=== PATIENT | female | born 1995 | race Caucasian/White ===

== ENCOUNTER → 2017-08-23 16:27 | Outpatient (CLI) | payer OTHER, MEDICAID, SELFPAY ==
[2017-08-23 16:40] LABS: RBC Urine None Seen (0-5/HPF)
[2017-08-23 17:13] LABS: Appearance Urine UA CLEAR; Bilirubin Urine UA NEGATIVE (NEGATIVE); Color Urine UA YELLOW; Glucose Urine UA NEGATIVE (Normal); Ketones Urine UA NEGATIVE (NEGATIVE); Leukocyte Esterase Urine UA TRACE (NEGATIVE); Nitrite Urine UA Negative (Negative); Occult Blood Urine UA NEGATIVE (Negative); Protein Urine UA NEGATIVE (Negative); Specific Gravity Urine UA <=1.005 (1.000-1.035); Urobilinogen Urine UA 0.2 E.U./dL (0.2)
[2017-08-23 17:46] LABS: Bacteria Urine Few (2-10); Culture Indicated Urine Specimen Cultured; WBC Urine 5-10/HPF (0-5/HPF)
== END ==
PROVIDERS: Family Provider Family Medicine; PCP Family Medicine; Visit Provider Family Medicine
DX: N39.0 Urinary tract infection, site not specified (principal)
CPT/HCPCS: 81001; 87077; 87086; 87186

== ENCOUNTER 2017-09-21 01:19 | Emergency (ER) | payer OTHER, MEDICAID, SELFPAY ==
[2017-09-21 02:36] VITALS: BP 115/61; PULSE 76; RESP 15; TEMP 36.6; O2SAT 100
[2017-09-21 03:11] LABS: RBC Urine 10-30/HPF (0-5/HPF)
[2017-09-21 03:12] LABS: Bacteria Urine Occasional (0-1); Mucus Urine 1+ (Negative); Squamous Epithelial Cell Urine 0-1 /HPF; WBC Urine 0-1/HPF (0-5/HPF)
--- NOTE | 2017-09-21 03:12 | ED.FEMALEGU ---
HPI - Female Genitourinary General Chief complaint: Vaginal Bleeding Stated complaint: Vaginal bleeding, large clots History of Present Illness HPI Narrative: HPI 22-year-old female presents for evaluation of 6+ hours of cramping and vaginal bleeding. Patient is used lesson 2 tampons. Patient reports that she has usual regular monthly menses, she had a interruption in her control and her last period was 6 weeks ago. Her cramping and bleeding is similar to prior menstrual periods, however the pain is more significant and she is concerned that she is passing tissue like material. * Pituitary: Denies headaches, changes in vision, or nipple discharge. * FUEL SYSTEM MAINTENANCE WORKER: None. M/S/F/SocHx notable for: please see HPI; remainder reviewed with patient and in chart. ROS: Negative constitutional, eye, cardiovascular, pulmonary, GI, , MSK, skin, neurologic, psychiatric, endocrine unless noted in the HPI. Exam Gen: Pleasant, nontoxic-appearing, resting comfortably. HEENT: NC, AT, PEERL, EOMI. Resp: Clear to auscultation bilaterally, normal work of breathing, no accessory muscle usage. Card: Regular rate and rhythm with no murmurs, rubs, or gallops, extremities warm and well perfused. GI: Non-tender to palpation, no rebound tenderness or guarding, non-distended : chaperoned exam with Normal female external genitalia, clitoral medina area piercing, vaginal canal visually normal without lesions, scant[ dark red blood appreciated from a visually closed cervical os. Bimanual exam without adnexal tenderness bilaterally, no CMT. MSK: No visible deformities, strength and tone without visually appreciable deficit. Skin: Normal color with no visible lesions. Neuro: AO x 3, no facial asymmetry, vision and hearing WNL. Psych: Mood and affect appropriate. MDM Previous chart, nursing note, and vitals reviewed. A: 22-year-old female presents for evaluation of 6+ hours of cramping and vaginal bleeding; notes that this is first bleeding since last menses 6 weeks ago. DDx & Evaluation: * Anemia - doubt clinically significant anemia given the short duration of bleeding, absence of tachycardia or hypotension, normal skin color. * Coagulopathy - no evidence on history or ROS for coagulopathy. * Vaginal/cervical lesion - Pelvic exam with bleeding from a closed cervical os. No visualized vaginal atrophy, cervical wart, trauma, tumor, ectropion, polyp, or foreign bodies. * Ruptured ovarian cyst - Doubt given lack of pain.Transvaginal ultrasound without evidence of hemorrhagic cyst. * Uterine (DUB, malignancy, leiomyoma, polyps, PID) - further evaluation offered, declined as the patient's bleeding is most likely secondary to recurrent menses. Doubt PID given an alternate diagnosis and absence of CMT or notable uterine or adnexal tenderness. * Endocrine - ROS low risk for hypo or hyperthyroidism Hyperprolactinemia cannot be fully excluded, however ROS is unremarkable and no further emergent evaluation is presently indicated.Furthermore, the patient is also without an overt cushingoid habitus. * Urinary tract - UA not ordered as there is clearly visualized uterine source of bleeding. * Bleeding 2/2 - Negative HCG. ED Course: Hemodynamically stable on arrival, patient remained stable throughout evaluation. Disposition: Patient discharged with instructions to follow up with their FUEL SYSTEM MAINTENANCE WORKER. Instructed to use OTC NSAIDs for pain control. Return to care precautions provided. Impression: Vaginal Bleeding (please reference below for remainder of encounter information) Related Data Home Medications Medication Instructions Recorded Confirmed cetirizine 10 mg PO #0 tab 11/28/12 07/28/17 buprenorphine-naloxone [Suboxone] 1 riley SUBLINGUAL QDAY #0 07/06/17 07/28/17 Previous Rx's Medication Instructions Recorded montelukast [Singulair] 10 mg PO QDAY #90 tab 02/25/16 valacyclovir [Valtrex] 1,000 mg PO Q DAY #90 tab 09/09/16 albuterol sulfate [ProAir 90 mcg IH Q4HP PRN #1 inh 02/21/17 RespiClick] drospirenone-ethinyl estradiol 1 tab PO QDAY #3 pac 06/09/17 [Shila (28)] pantoprazole 40 mg PO QDAY #90 ect 07/06/17 methylphenidate 10 mg tablet 10 mg PO TID #90 tab 09/14/17 propranolol ER 80 mg capsule,24 80 mg PO QDAY #30 cap 09/14/17 hr,extended release Allergies Allergy/AdvReac Type Severity Reaction Status Date / Time amoxicillin [From AUGMENTIN] Allergy Intermediate Verified 09/21/17 02:36 clavulanic acid Allergy Intermediate Verified 09/21/17 02:36 [From AUGMENTIN] Penicillins [PENICILLINS] Allergy Unknown Verified 09/21/17 02:36 [facility] Medical History Asthma (Chronic) H pylori ulcer (Chronic) Social History Smoking Status: Never smoker Exam Initial Vital Signs Initial Vital Signs: Vital Signs Temperature 97.9 F 09/21/17 02:36 Pulse Rate 76 09/21/17 02:36 Respiratory Rate 15 09/21/17 02:36 Blood Pressure 115/61 09/21/17 02:36 Pulse Oximetry 100 09/21/17 02:36 Course Orders Ordered: ED Orders 09/21/17 02:28 Urine Microscopic Stat Vital Signs - 8 hr 09/21/17 02:36 Temperature 97.9 F Pulse Rate 76 Respiratory Rate 15 Blood Pressure 115/61 Pulse Oximetry 100 Discharge Plan Departure Patient Disposition: Home, Self-Care Clinical Impression: Abnormal menses Activity Restrictions/Additional Instructions: You were in seen in the [facility] Emergency Department for evaluation of vaginal bleeding. At the present time your bleeding is tentatively thought to be due to an abnormal period. Please read and follow all of the instructions below. Please follow up with your FUEL SYSTEM MAINTENANCE WORKER or primary care physician within 36 to 48 hours for repeat evaluation as needed. Please return immediately if you have any of the following: * Worsening bleeding. * Lightheadedness, shortness of breath, dizziness, chest pain. * Worsening pain. * If you are otherwise concerned about your health. If you have any new symptoms or if you are at all concerned about your health please return immediately to the emergency department. If you do not have a primary care physician, please contact [facility], [facility] at [phone], [facility] at [phone], or [facility] at [phone] to arrange follow up care. If you have health insurance, please also contact your insurer for a list of accepting providers under your policy, you may contact these providers for further health care. Your care today was limited to identifying and treating emergent medical problems only. Many people have subtle differences in their test results that require follow up with their outpatient physician(s) to correctly determine if this represents a normal variation or concerning abnormality with respect to your specific health. The care given to you today was limited to identifying and treating emergent medical problems - you need to request a copy of all of your medical records from today's visit and follow up with your outpatient physician(s) to review both today's visit and your overall health. You make take over the counter Acetaminophen (Tylenol) and Ibuprofen (Motrin or Aleve) as directed below for relief of pain. * Take 600 mg of ibuprofen (three 200 mg tablets) with a glass of water every 6-8 hours as needed for pain or fever. Do not take if you have ulcers, GI bleeding, are , or are allergic to ibuprofen. * Take 1,000 mg of acetaminophen (two 500 mg tablets) with a glass of water every 6-8 hours as needed for pain. Do not take if you are allergic to acetaminophen. If you have liver disease, please reduce your dose to a maximum of 2,000 mg per day. * You can take these medications at the same time or on separate schedules. * Do not take for more than 10 days. * Do not take with alcohol or other acetaminophen containing medications. * This medication may cause a mildly upset stomach, if so take it with a small snack. Stop taking it if you have persistent abdominal pain, heartburn, or any stomach pain. Do not take this medication if you have known ulcers. * Please read the warnings at the end of this document regarding these medications. IBUPROFEN WARNING: This drug may infrequently cause serious (rarely fatal) bleeding from the stomach or intestines. Also, related drugs rarely have caused blood clots to form, resulting in heart attacks and strokes. This medication might also rarely cause similar problems. Talk to your doctor or pharmacist about the benefits and risks of treatment, as well as other possible medication choices. If you notice any of the following rare but very serious side effects, stop taking ibuprofen and seek immediate medical attention: black stools, persistent stomach/abdominal pain, vomit that looks like coffee grounds, chest pain, weakness on one side of the body, sudden vision changes, slurred speech. IBUPROFEN SIDE EFFECTS: Upset stomach, nausea, vomiting, heartburn, headache, diarrhea, constipation, drowsiness, and dizziness may occur. If any of these effects persist or worsen, notify your doctor or pharmacist promptly. If your doctor has directed you to use this medication, remember that he or she has judged that the benefit to you is greater than the risk of side effects. Many people using this medication do not have serious side effects. Tell your doctor immediately if any of these serious side effects occur: stomach pain, swelling of the hands or feet, sudden or unexplained weight gain, ringing in the ears (tinnitus). Tell your doctor immediately if any of these unlikely but serious side effects occur: vision changes, rapid or pounding heartbeat, easy bruising or bleeding, difficult/painful swallowing. Tell your doctor immediately if any of these highly unlikely but very serious side effects occur: change in amount of urine, severe headache, very stiff neck, mental/mood changes, persistent sore throat or fever. This drug may rarely cause serious (possibly fatal) liver disease. If you notice any of the following highly unlikely but very serious side effects, stop taking ibuprofen and consult your doctor or pharmacist immediately: yellowing eyes and skin, dark urine, unusual/extreme tiredness. An allergic reaction to this drug is unlikely, but seek immediate medical attention if it occurs. Symptoms of an allergic reaction include: rash, itching/swelling (especially of the face/tongue/throat), severe dizziness, trouble breathing. This is not a complete list of possible side effects. ACETAMINOPHEN SIDE EFFECTS: This drug usually has no side effects. If you do not have liver problems, the maximum dose of acetaminophen for adults is 4 grams per day (4000 milligrams). Taking more than the maximum daily amount may cause serious (possibly fatal) liver damage. Get medical help right away if you have any of the following symptoms of liver damage: persistent nausea/vomiting, extreme tiredness, stomach/abdominal pain, yellowing eyes/skin, dark urine. If you have liver problems, consult your doctor or pharmacist for a safe dosage of this medication. A very serious allergic reaction to this drug is rare. However, get medical help right away if you notice any symptoms of a serious allergic reaction, including: rash, itching/swelling (especially of the face/tongue/throat), severe dizziness, trouble breathing. This is not a complete list of possible side effects. If you notice other effects not listed above, contact your doctor or pharmacist. DRUG INTERACTIONS: Your healthcare professionals (e.g., doctor or pharmacist) may already be aware of any possible drug interactions and may be monitoring you for it. Do not start, stop or change the dosage of any medicine before checking with them first. This drug should not be used with the following medications because very serious interactions may occur: cidofovir, ketorolac. If you are currently using any of these medications listed above, tell your doctor or pharmacist before starting ibuprofen. Before using this medication, tell your doctor or pharmacist of all prescription and nonprescription/herbal products you may use, especially of: anti-platelet drugs (e.g., cilostazol, clopidogrel), oral bisphosphonates (e.g., alendronate), other medications for arthritis (e.g., aspirin, methotrexate), blood thinners (e.g., enoxaparin, heparin, warfarin), corticosteroids (e.g., prednisone), cyclosporine, desmopressin, high blood pressure drugs (including JOHNNY inhibitors such as captopril, angiotensin II receptor antagonists such as losartan, and beta-blockers such as metoprolol), lithium, pemetrexed, water pills (diuretics such as furosemide, hydrochlorothiazide, triamterene). Check all prescription and nonprescription medicine labels carefully for other pain/fever drugs (NSAIDs such as aspirin, celecoxib, naproxen). These drugs are similar to ibuprofen, so taking one of these drugs while also taking ibuprofen may increase your risk of side effects. Consult your doctor or pharmacist for more details. However, if your doctor has prescribed low doses of aspirin to prevent heart attack or stroke (usually at dosages of 81-325 milligrams a day), you should continue to take the aspirin. Daily use of ibuprofen may decrease aspirin's ability to prevent heart attack/stroke. Talk to your doctor about using a different medication (e.g., acetaminophen) to treat pain/fever. If you must take ibuprofen, talk to your doctor about possibly taking immediate-release aspirin (not enteric-coated) while also taking the ibuprofen dose apart from your aspirin dose. Do not increase your daily dose of aspirin or change the way you take aspirin/other medications without your doctor's approval. This document does not contain all possible interactions. Therefore, before using this product, tell your doctor or pharmacist of all the products you use. Keep a list of all your medications with you, and share the list with your doctor and pharmacist. Prescriptions: No Action cetirizine 10 MG tablet 10 mg PO Qty: 0 RF: 0 montelukast [Singulair] 10 MG tablet 10 mg PO QDAY Qty: 90 RF: 0 valacyclovir [Valtrex] 1,000 MG tablet 1,000 mg PO Q DAY Qty: 90 RF: 1 albuterol sulfate [ProAir RespiClick] 90 MCG aerosol powdr breath activated 90 mcg IH Q4HP PRNQty: 1 RF: 0 drospirenone-ethinyl estradiol [Shila (28)] 0.03 MG/3 MG tablet 1 tab PO QDAY Qty: 3 RF: 0 pantoprazole 40 MG tablet,delayed release (DR/EC) 40 mg PO QDAY Qty: 90 RF: 3 buprenorphine-naloxone [Suboxone] 4 MG/1 MG film 1 riley Sublingual QDAY Qty: 0 RF: 0 propranolol 80 mg capsule,extended release 24 hr 80 mg PO QDAY Qty: 30 RF: 5 methylphenidate HCl 10 mg tablet 10 mg PO TID Qty: 90 RF: 0
[2017-09-21 03:13] LABS: Culture Indicated Urine Cult Not Indicated
--- NOTE | 2017-09-21 03:20 | ED_ITS ---
HPI - Female Genitourinary General Chief complaint: Vaginal Bleeding Stated complaint: Vaginal bleeding, large clots History of Present Illness HPI Narrative: HPI 22-year-old female presents for evaluation of 6+ hours of cramping and vaginal bleeding. Patient is used lesson 2 tampons. Patient reports that she has usual regular monthly menses, she had a interruption in her control and her last period was 6 weeks ago. Her cramping and bleeding is similar to prior menstrual periods, however the pain is more significant and she is concerned that she is passing tissue like material. * Pituitary: Denies headaches, changes in vision, or nipple discharge. * TURRET LATHE TENDER: None. M/S/F/SocHx notable for: please see HPI; remainder reviewed with patient and in chart. ROS: Negative constitutional, eye, cardiovascular, pulmonary, GI, , MSK, skin , neurologic, psychiatric, endocrine unless noted in the HPI. Exam Gen: Pleasant, nontoxic-appearing, resting comfortably. HEENT: NC, AT, PEERL, EOMI. Resp: Clear to auscultation bilaterally, normal work of breathing, no accessory muscle usage. Card: Regular rate and rhythm with no murmurs, rubs, or gallops, extremities warm and well perfused. GI: Non-tender to palpation, no rebound tenderness or guarding, non-distended : chaperoned exam with Normal female external genitalia, clitoral medina area piercing, vaginal canal visually normal without lesions, scant[ dark red blood appreciated from a visually closed cervical os. Bimanual exam without adnexal tenderness bilaterally, no CMT. MSK: No visible deformities, strength and tone without visually appreciable deficit. Skin: Normal color with no visible lesions. Neuro: AO x 3, no facial asymmetry, vision and hearing WNL. Psych: Mood and affect appropriate. MDM Previous chart, nursing note, and vitals reviewed. A: 22-year-old female presents for evaluation of 6+ hours of cramping and vaginal bleeding; notes that this is first bleeding since last menses 6 weeks ago. DDx & Evaluation: * Anemia - doubt clinically significant anemia given the short duration of bleeding, absence of tachycardia or hypotension, normal skin color. * Coagulopathy - no evidence on history or ROS for coagulopathy. * Vaginal/cervical lesion - Pelvic exam with bleeding from a closed cervical os. No visualized vaginal atrophy, cervical wart, trauma, tumor, ectropion, polyp, or foreign bodies. * Ruptured ovarian cyst - Doubt given lack of pain.Transvaginal ultrasound without evidence of hemorrhagic cyst. * Uterine (DUB, malignancy, leiomyoma, polyps, PID) - further evaluation offered , declined as the patient's bleeding is most likely secondary to recurrent menses. Doubt PID given an alternate diagnosis and absence of CMT or notable uterine or adnexal tenderness. * Endocrine - ROS low risk for hypo or hyperthyroidism Hyperprolactinemia cannot be fully excluded, however ROS is unremarkable and no further emergent evaluation is presently indicated.Furthermore, the patient is also without an overt cushingoid habitus. * Urinary tract - UA not ordered as there is clearly visualized uterine source of bleeding. * Bleeding 2/2 - Negative HCG. ED Course: Hemodynamically stable on arrival, patient remained stable throughout evaluation. Disposition: Patient discharged with instructions to follow up with their OB/ LOAN AUDITOR. Instructed to use OTC NSAIDs for pain control. Return to care precautions provided. Impression: Vaginal Bleeding (please reference below for remainder of encounter information) Related Data Home Medications Medication Instructions Recorded Confirmed cetirizine 10 mg PO #0 tab 11/28/12 07/28/17 buprenorphine-naloxone [Suboxone] 1 riley SUBLINGUAL QDAY #0 07/06/17 07/28/17 Previous Rx's Medication Instructions Recorded montelukast [Singulair] 10 mg PO QDAY #90 tab 02/25/16 valacyclovir [Valtrex] 1,000 mg PO Q DAY #90 tab 09/09/16 albuterol sulfate [ProAir 90 mcg IH Q4HP PRN #1 inh 02/21/17 RespiClick] drospirenone-ethinyl estradiol 1 tab PO QDAY #3 pac 06/09/17 [Shila (28)] pantoprazole 40 mg PO QDAY #90 ect 07/06/17 methylphenidate 10 mg tablet 10 mg PO TID #90 tab 09/14/17 propranolol ER 80 mg capsule,24 80 mg PO QDAY #30 cap 09/14/17 hr,extended release Allergies Allergy/AdvReac Type Severity Reaction Status Date / Time amoxicillin [From AUGMENTIN] Allergy Intermediate Verified 09/21/17 02:36 clavulanic acid Allergy Intermediate Verified 09/21/17 02:36 [From AUGMENTIN] Penicillins [PENICILLINS] Allergy Unknown Verified 09/21/17 02:36 [facility] Medical History Asthma (Chronic) H pylori ulcer (Chronic) Social History Smoking Status: Never smoker Exam Initial Vital Signs Initial Vital Signs: Vital Signs Temperature 97.9 F 09/21/17 02:36 Pulse Rate 76 09/21/17 02:36 Respiratory Rate 15 09/21/17 02:36 Blood Pressure 115/61 09/21/17 02:36 Pulse Oximetry 100 09/21/17 02:36 Course Orders Ordered: ED Orders 09/21/17 02:28 Urine Microscopic Stat Vital Signs - 8 hr 09/21/17 02:36 Temperature 97.9 F Pulse Rate 76 Respiratory Rate 15 Blood Pressure 115/61 Pulse Oximetry 100 Discharge Plan Departure Patient Disposition: Home, Self-Care Clinical Impression: Abnormal menses Activity Restrictions/Additional Instructions: You were in seen in the [facility] Emergency Department for evaluation of vaginal bleeding. At the present time your bleeding is tentatively thought to be due to an abnormal period. Please read and follow all of the instructions below. Please follow up with your TURRET LATHE TENDER or primary care physician within 36 to 48 hours for repeat evaluation as needed. Please return immediately if you have any of the following: * Worsening bleeding. * Lightheadedness, shortness of breath, dizziness, chest pain. * Worsening pain. * If you are otherwise concerned about your health. If you have any new symptoms or if you are at all concerned about your health please return immediately to the emergency department. If you do not have a primary care physician, please contact [facility], [facility] at [phone], [facility] at [phone], or [facility] at [phone] to arrange follow up care. If you have health insurance, please also contact your insurer for a list of accepting providers under your policy, you may contact these providers for further health care. Your care today was limited to identifying and treating emergent medical problems only. Many people have subtle differences in their test results that require follow up with their outpatient physician(s) to correctly determine if this represents a normal variation or concerning abnormality with respect to your specific health. The care given to you today was limited to identifying and treating emergent medical problems - you need to request a copy of all of your medical records from today's visit and follow up with your outpatient physician(s) to review both today's visit and your overall health. You make take over the counter Acetaminophen (Tylenol) and Ibuprofen (Motrin or Aleve) as directed below for relief of pain. * Take 600 mg of ibuprofen (three 200 mg tablets) with a glass of water every 6- 8 hours as needed for pain or fever. Do not take if you have ulcers, GI bleeding , are , or are allergic to ibuprofen. * Take 1,000 mg of acetaminophen (two 500 mg tablets) with a glass of water every 6-8 hours as needed for pain. Do not take if you are allergic to acetaminophen. If you have liver disease, please reduce your dose to a maximum of 2,000 mg per day. * You can take these medications at the same time or on separate schedules. * Do not take for more than 10 days. * Do not take with alcohol or other acetaminophen containing medications. * This medication may cause a mildly upset stomach, if so take it with a small snack. Stop taking it if you have persistent abdominal pain, heartburn, or any stomach pain. Do not take this medication if you have known ulcers. * Please read the warnings at the end of this document regarding these medications. IBUPROFEN WARNING: This drug may infrequently cause serious (rarely fatal) bleeding from the stomach or intestines. Also, related drugs rarely have caused blood clots to form, resulting in heart attacks and strokes. This medication might also rarely cause similar problems. Talk to your doctor or pharmacist about the benefits and risks of treatment, as well as other possible medication choices. If you notice any of the following rare but very serious side effects, stop taking ibuprofen and seek immediate medical attention: black stools, persistent stomach/abdominal pain, vomit that looks like coffee grounds, chest pain, weakness on one side of the body, sudden vision changes, slurred speech. IBUPROFEN SIDE EFFECTS: Upset stomach, nausea, vomiting, heartburn, headache, diarrhea, constipation, drowsiness, and dizziness may occur. If any of these effects persist or worsen, notify your doctor or pharmacist promptly. If your doctor has directed you to use this medication, remember that he or she has judged that the benefit to you is greater than the risk of side effects. Many people using this medication do not have serious side effects. Tell your doctor immediately if any of these serious side effects occur: stomach pain, swelling of the hands or feet, sudden or unexplained weight gain, ringing in the ears ( tinnitus). Tell your doctor immediately if any of these unlikely but serious side effects occur: vision changes, rapid or pounding heartbeat, easy bruising or bleeding, difficult/painful swallowing. Tell your doctor immediately if any of these highly unlikely but very serious side effects occur: change in amount of urine, severe headache, very stiff neck, mental/mood changes, persistent sore throat or fever. This drug may rarely cause serious (possibly fatal) liver disease. If you notice any of the following highly unlikely but very serious side effects, stop taking ibuprofen and consult your doctor or pharmacist immediately: yellowing eyes and skin, dark urine, unusual/extreme tiredness. An allergic reaction to this drug is unlikely, but seek immediate medical attention if it occurs. Symptoms of an allergic reaction include: rash, itching/ swelling (especially of the face/tongue/throat), severe dizziness, trouble breathing. This is not a complete list of possible side effects. ACETAMINOPHEN SIDE EFFECTS: This drug usually has no side effects. If you do not have liver problems, the maximum dose of acetaminophen for adults is 4 grams per day (4000 milligrams). Taking more than the maximum daily amount may cause serious (possibly fatal) liver damage. Get medical help right away if you have any of the following symptoms of liver damage: persistent nausea/vomiting, extreme tiredness, stomach/abdominal pain, yellowing eyes/skin, dark urine. If you have liver problems, consult your doctor or pharmacist for a safe dosage of this medication. A very serious allergic reaction to this drug is rare. However , get medical help right away if you notice any symptoms of a serious allergic reaction, including: rash, itching/swelling (especially of the face/tongue/ throat), severe dizziness, trouble breathing. This is not a complete list of possible side effects. If you notice other effects not listed above, contact your doctor or pharmacist. DRUG INTERACTIONS: Your healthcare professionals (e.g., doctor or pharmacist) may already be aware of any possible drug interactions and may be monitoring you for it. Do not start, stop or change the dosage of any medicine before checking with them first. This drug should not be used with the following medications because very serious interactions may occur: cidofovir, ketorolac. If you are currently using any of these medications listed above, tell your doctor or pharmacist before starting ibuprofen. Before using this medication, tell your doctor or pharmacist of all prescription and nonprescription/herbal products you may use, especially of: anti-platelet drugs (e.g., cilostazol, clopidogrel), oral bisphosphonates (e.g., alendronate), other medications for arthritis (e.g., aspirin, methotrexate), blood thinners (e.g., enoxaparin, heparin, warfarin), corticosteroids (e.g., prednisone), cyclosporine, desmopressin, high blood pressure drugs (including JOHNNY inhibitors such as captopril, angiotensin II receptor antagonists such as losartan, and beta- blockers such as metoprolol), lithium, pemetrexed, water pills (diuretics such as furosemide, hydrochlorothiazide, triamterene). Check all prescription and nonprescription medicine labels carefully for other pain/fever drugs ( NSAIDs such as aspirin, celecoxib, naproxen). These drugs are similar to ibuprofen, so taking one of these drugs while also taking ibuprofen may increase your risk of side effects. Consult your doctor or pharmacist for more details. However, if your doctor has prescribed low doses of aspirin to prevent heart attack or stroke (usually at dosages of 81-325 milligrams a day), you should continue to take the aspirin. Daily use of ibuprofen may decrease aspirin 's ability to prevent heart attack/stroke. Talk to your doctor about using a different medication (e.g., acetaminophen) to treat pain/fever. If you must take ibuprofen, talk to your doctor about possibly taking immediate-release aspirin (not enteric-coated) while also taking the ibuprofen dose apart from your aspirin dose. Do not increase your daily dose of aspirin or change the way you take aspirin/other medications without your doctor's approval. This document does not contain all possible interactions. Therefore, before using this product, tell your doctor or pharmacist of all the products you use. Keep a list of all your medications with you, and share the list with your doctor and pharmacist. Prescriptions: No Action cetirizine 10 MG tablet 10 mg PO Qty: 0 RF: 0 montelukast [Singulair] 10 MG tablet 10 mg PO QDAY Qty: 90 RF: 0 valacyclovir [Valtrex] 1,000 MG tablet 1,000 mg PO Q DAY Qty: 90 RF: 1 albuterol sulfate [ProAir RespiClick] 90 MCG aerosol powdr breath activated 90 mcg IH Q4HP PRNQty: 1 RF: 0 drospirenone-ethinyl estradiol [Shila (28)] 0.03 MG/3 MG tablet 1 tab PO QDAY Qty: 3 RF: 0 pantoprazole 40 MG tablet,delayed release (DR/EC) 40 mg PO QDAY Qty: 90 RF: 3 buprenorphine-naloxone [Suboxone] 4 MG/1 MG film 1 riley Sublingual QDAY Qty: 0 RF: 0 propranolol 80 mg capsule,extended release 24 hr 80 mg PO QDAY Qty: 30 RF: 5 methylphenidate HCl 10 mg tablet 10 mg PO TID Qty: 90 RF: 0
== END 2017-09-21 03:20 | disposition home or self-care (01) ==
PROVIDERS: Emergency Provider Emergency Medicine; Family Provider Family Medicine; PCP Family Medicine
DX: N93.9 Abnormal uterine and vaginal bleeding, unspecified (principal)
CPT/HCPCS: 81003; 81015; 81025; 87081; 87210; 99282; 99284

== ENCOUNTER → 2018-06-15 09:52 | Outpatient (CLI) | payer OTHER, MEDICAID, SELFPAY | PROVIDERS: PCP Family Medicine; Visit Provider Family Medicine | DX: G56.00 Carpal tunnel syndrome, unspecified upper limb (principal) | CPT/HCPCS: 95885; 95886; 95909 ==

== ENCOUNTER → 2018-09-01 20:01 | Outpatient (CLI) | payer OTHER, MEDICAID, SELFPAY | PROVIDERS: PCP Family Medicine; Visit Provider Physician Assistant | DX: J02.9 Acute pharyngitis, unspecified (principal) | CPT/HCPCS: 87070 ==

== ENCOUNTER → 2018-09-08 17:15 | Outpatient (CLI) | payer OTHER, MEDICAID, SELFPAY ==
[2018-09-08 17:55] LABS: Influenza A and B by PCR Rapid Negative (Negative)
== END ==
PROVIDERS: PCP Family Medicine; Visit Provider Physician Assistant
DX: R05 Cough (principal); R68.89 Other general symptoms and signs
CPT/HCPCS: 87400

== ENCOUNTER → 2018-09-08 17:43 | Outpatient (CLI) | payer OTHER, MEDICAID, SELFPAY ==
[2018-09-08 18:14] LABS: Monotest Negative (Negative)
== END ==
PROVIDERS: PCP Family Medicine; Visit Provider Physician Assistant
DX: J35.1 Hypertrophy of tonsils (principal)
CPT/HCPCS: 36415; 86318; 87400

== ENCOUNTER → 2019-01-09 18:59 | Outpatient (CLI) | payer OTHER, MEDICAID, SELFPAY | PROVIDERS: PCP Family Medicine; Visit Provider Nurse Practitioner | DX: N39.0 Urinary tract infection, site not specified (principal) | CPT/HCPCS: 87086 ==

== ENCOUNTER → 2019-02-14 18:22 | Outpatient (CLI) | payer OTHER, MEDICAID, SELFPAY ==
--- NOTE | 2019-02-14 18:23 | DI.MRI.S_ITS ---
PROCEDURE: MR LUMBAR SPINE WO CON INDICATIONS: lumbar pain TECHNIQUE: Noncontrast sagittal T1 spin echo and T2 fast echo, sagittal STIR, axial T1 and T2 fast spin echo through the lumbar spine. In cases with scoliosis, additional coronal T2 fast spin echo may be performed. COMPARISON: [facility], MR, L-SPINE WITHOUT CONTRAST, 01/08/2015, 14:09. FINDINGS: Image quality: Excellent. Alignment and Curvature: There is normal bony alignment. Bone Marrow: Marrow is of normal overall signal. No acute vertebral body compression fractures. Spinal Cord: Conus medullaris terminates at the L1 level. Visualized cord demonstrates normal signal and size. Paraspinous Soft Tissues: No paravertebral masses. L1-L2: Normal appearance except for minimal discoid reduction as was previously the case. L2-L3: Normal appearance, also showing minimal previously present degenerative disc height reduction. L3-L4: Normal appearance. L4-L5: Normal appearance except for minimal discoid reduction, previously present. L5-S1: Mild degenerative disc disease, disc height reduction and disc desiccation is present to a slightly greater degree than previously was the case 01/08/15. Facet osteoarthritis at this level has also slightly worsened, and there is minimal foraminal stenosis on the left but none of significance on the right. A very slight posterior disc bulge was previously present and has not worsened. IMPRESSION: There is only a small degree of degenerative disc disease and facet osteoarthritis along the lumbosacral spine, and stable over time to the L5-S1 level where was slight degree of interval worsening of disc height reduction, disc desiccation and left greater than right facet osteoarthritis can be seen. A definite source of nerve root impingement is not found. No disc herniation has developed. Dictated by: Tru Katz M.D. on 02/16/2019 at 16:13 Approved by: Tru Katz M.D. on 02/16/2019 at 16:17
== END ==
PROVIDERS: PCP Family Medicine; Visit Provider Family Medicine
DX: M54.5 Low back pain (principal); M47.27 Other spondylosis with radiculopathy, lumbosacral region; M51.17 Intervertebral disc disorders with radiculopathy, lumbosacral region
CPT/HCPCS: 72148

== ENCOUNTER → 2019-04-16 16:17 | Outpatient (CLI) | payer OTHER, MEDICAID, SELFPAY | PROVIDERS: PCP Family Medicine; Visit Provider Family Medicine | DX: N39.0 Urinary tract infection, site not specified (principal) | CPT/HCPCS: 87077; 87086 ==

== ENCOUNTER 2019-04-27 21:06 | Emergency (ER) | payer OTHER, MEDICAID, SELFPAY ==
[2019-04-27 21:33] VITALS: BP 118/74; PULSE 114; RESP 16; TEMP 36.8; O2SAT 99; BMI 19.2
--- NOTE | 2019-05-02 15:09 | ED_ITS ---
HPI - Back Pain/Injury General Chief Complaint: Back Pain/Injury Stated Complaint: back pain, radiates down legs Source: patient Limitations: no limitations History of Present Illness HPI Narrative: This patient was never seen by myself, interviewed or examined. The patient left without treatment and being seen. Related Data Home Medications Medication Instructions Recorded Confirmed cetirizine 10 mg PO #0 tab 11/28/12 04/28/19 buprenorphine-naloxone [Suboxone] 1 riley SUBLINGUAL QDAY #0 07/06/17 04/28/19 Previous Rx's Medication Instructions Recorded valacyclovir 1 gram tablet 1,000 mg PO Q DAY #30 tab 01/04/18 promethazine 12.5 mg tablet 12.5 mg PO Q6H PRN #30 tab 09/28/18 drospirenone 3 mg-ethinyl 1 tab PO QDAY #84 tab 11/21/18 estradiol 0.03 mg tablet albuterol sulfate 90 mcg/actuation 90 mcg INHALATION Q4HP PRN #1 01/15/19 breath activated powder inhaler inhalation pantoprazole 40 mg tablet,delayed 40 mg PO QDAY #90 ect 01/15/19 release lidocaine 5 % topical ointment 1 applic TOP BID-TID PRN #35.44 02/19/19 gram MDD three applications methylphenidate HCl 20 mg tablet 20 mg PO TID #90 tab 04/16/19 propranolol 20 mg tablet 20 mg PO BID #60 tab 04/16/19 celecoxib 200 mg capsule 200 mg PO DAILY #30 cap 05/02/19 cyclobenzaprine 10 mg tablet 10 mg PO BID PRN #60 tab 05/02/19 Allergies Allergy/AdvReac Type Severity Reaction Status Date / Time amoxicillin [From AUGMENTIN] Allergy Intermediate Verified 05/02/19 09:05 clavulanic acid Allergy Intermediate Verified 05/02/19 09:05 [From AUGMENTIN] Penicillins [PENICILLINS] Allergy Unknown Verified 05/02/19 09:05 Patient History Medical History (Updated 05/02/19 @ 09:46 by Justice Shafer DO) Allergic to dogs (Acute) Asthma (Chronic) Coccydynia (Acute) Degeneration of intervertebral disc at L5-S1 level (Acute) Facet arthropathy, lumbar (Acute) Facet arthropathy, lumbosacral (Chronic) H pylori ulcer (Chronic) Migraine with aura (Acute) Surgical History H/O nasal septoplasty (Acute) Social History Smoking Status: Former smoker Smoking Status: Former smoker alcohol intake frequency: 0-2 drinks per day Substance Use Type: does not use Exam Initial Vital Signs Initial Vital Signs: Vital Signs Temperature 98.2 F 04/27/19 21:33 Pulse Rate 114 H 04/27/19 21:33 Respiratory Rate 16 04/27/19 21:33 Blood Pressure 118/74 04/27/19 21:33 Pulse Oximetry 99 04/27/19 21:33 MDM - Back Pain/Injury Lab Data Labs: Point of Care Testing Test Results Negative Urine Dip Bedside Urine Glucose Negative Bedside Urine Bilirubin - Negative Bedside Urine Ketone - Negative Urine Specific [place] 1.020 Bedside Urine Occult Blood - Negative Bedside Urine pH 7.0 Bedside Urine Protein - Negative Bedside Urine Urobilinogen - Negative Bedside Urine Nitrite - Negative Bedside Urine Leukocytes - Negative Esterase Discharge Plan Departure Patient Disposition: Left Without Being Seen Clinical Impression: Patient left before evaluation by physician Discharge Date/Time: 04/28/19 02:16
== END 2019-04-28 02:16 | disposition left against medical advice (07) ==
PROVIDERS: Emergency Provider Emergency Medicine; PCP Family Medicine
DX: M54.9 Dorsalgia, unspecified (principal)
CPT/HCPCS: 81003; 81025; 99282

== ENCOUNTER 2019-05-25 15:15 | Outpatient (RCR) | payer OTHER, MEDICAID, SELFPAY ==
--- NOTE | 2019-04-17 18:30 | PT.OIE ---
Current Diagnoses Other chronic pain (04/17/19) Spondylosis without myelopathy or radiculopathy, lumbosacral region (04/17/19) Other intervertebral disc degeneration, lumbar region (04/17/19) Low back pain (04/17/19) Past Medical History (Last Reviewed 02/19/19 @ 17:43 by MATT Morris) Allergic to dogs (Acute) Asthma (Chronic) Facet arthropathy, lumbosacral (Chronic) H pylori ulcer (Chronic) Migraine with aura (Acute) Visit Care Team Role Provider Type Krissy Goncalves DO Attending Provider Physician Primary Care Provider Specialty: [facility] Address: [address] [place] [address], [address], [facility] Email: [email or web address] Physical Therapy Initial Evaluation PT-OP-A Visit Information Start: 04/17/19 17:44 Freq: Status: Active Protocol: Document 04/17/19 16:45 HH (Rec: 04/17/19 18:30 HH [email or web address]) Out-Patient Physical Therapy Visit Information Visit Information Visit Type Initial Evaluation Visit Start Time 16:45 Visit Stop Time 17:30 Total Visit Minutes 45 Visit Number 1/8 Number of VOLUNTEER SERVICES COORDINATOR Visits 0 Evaluation Information Evaluation Date 04/17/19 PT-OP-B Current Condition Start: 04/17/19 17:44 Freq: Status: Active Protocol: Document 04/17/19 16:45 HH (Rec: 04/17/19 18:30 HH [email or web address]) Current Condition History of Current Condition Onset Date 6 years ago Current Complaints Chronic low back pain, unable to lift and stand for long period of time History of Current Condition Clara is a 24 y/o female who presents to the clinic today for evaluation of her chronic LBP, referred by Dr. Goncalves. 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 She reports that her low back pain (centered) will frequently radiate into her anterior thighs. It aggravates by walking on uneven terrain and lifting, sitting or standing for extended periods. It relieved by positional changes , lying down supine and forward bending. No relief with cyclobenzaprine, tramaol, oxycodone. Pt had 2 rounds of PT during the past 6 years and she reports it was helpful but unable to sustain. Pt also had a steroid injection 2 .5 years ago and it was helpful for 2 years. Prior Treatments and Tests MRI 02/16/19 There is only a small degree of degenerative disc disease and facet osteoarthritis along the lumbosacral spine, and stable over time to the L5 -S1 level where was slight degree of interval worsening of disc height reduction, disc desiccation and left greater than right facet osteoarthritis can be seen. A definite source of nerve root impingement is not found. No disc herniation has developed. Treatment Goals Patient/Caregiver Goals 1. To be pain free for lifting , walking and sitting Current Functional Impairments (Reported) Functional Limitations- Other Unable to stand / sit in one position > 30 mins Unable to lift objects >10lbs from the floor without pain unable to amb >1/2 mile without pain PT-OP-C Subjective Start: 04/17/19 17:44 Freq: Status: Active Protocol: Document 04/17/19 16:45 HH (Rec: 04/17/19 18:30 [email or web address]) Patient Questionnaires Oswestry Low Back Index Oswestry Score 40 Oswestry Impairment 40 to 59% Impaired (Score 40- 59) OP-PT Pain Assessment Location L5-S1 Intensity 5 Scale Used Numeric (1 - 10) Description Aching,Pinching Frequency Constant Pain Aggravating Factors Activity,Exercise,Standing, Sitting,Lifting Pain Alleviating Factors Inactivity,Lying Supine PT-OP-F Manual Assessment Start: 04/17/19 17:44 Freq: Status: Active Protocol: Document 04/17/19 16:45 HH (Rec: 04/17/19 18:30 [email or web address]) Manual Assessments Soft Tissue Assessment Soft Tissue Mobility Assessment tenderness to pressure on lumbar paraspinals Joint Mobility Assessment Joint Mobility Assessment hypomobility for extension at L1-L4 and T1-T8 PT-OP-J Posture/Palpation/Skin Start: 04/17/19 17:44 Freq: Status: Active Protocol: Document 04/17/19 16:45 HH (Rec: 04/17/19 18:30 [email or web address]) Posture Evaluation Position Standing Evaluation View Lateral Head/C-Spine Posture Forward Head T-Spine Posture Increased Kyphosis L-Spine Posture Increased Lordosis Shoulder Posture (L) Rounded,(R) Rounded Pelvis Posture Anteriorly Tilted Knee Posture (L) Genu Recurvatum,(R) Genu Recurvatum Ankle/Foot Posture (L) Plantarflexed,(R) Plantarflexed PT-OP-K Range of Motion Start: 04/17/19 17:44 Freq: Status: Active Protocol: Document 04/17/19 16:45 HH (Rec: 04/17/19 18:30 [email or web address]) Lumbar Spine Range of Motion Lumbar Spine Active Percentage Testing Position Standing Comments pt is able to touch the floor with good segmental flexion mobility extension angulation noted at L5-S1 during trunk extension( pt's hand pointed ceiling only ) PT-OP-L Special Tests Start: 04/17/19 17:44 Freq: Status: Active Protocol: Document 04/17/19 16:45 HH (Rec: 04/17/19 18:30 [email or web address]) Special Tests Lumbar Spine Special Tests Straight Leg Raise Test Results +ve B Comments poor engagement of abdominals and exaccerbation LBP Standing Flexion Test Results -ve Comments -ve for scoliosis Prone Instability Test Test Results +VE B Comments decreased pain with unilateral hip extension facet joint Test Results +VE B Comments pain reproduced during extension PT-OP-M Strength Start: 04/17/19 17:44 Freq: Status: Active Protocol: Document 04/17/19 16:45 HH (Rec: 04/17/19 18:30 [email or web address]) Hip Strength Hip Manual Muscle Testing Right Flexion (L2) 5 Normal Extension (S1) 5 Normal Abduction 5 Normal Adduction 5 Normal External Rotation 5 Normal Internal Rotation 5 Normal Left Flexion (L2) 5 Normal Extension (S1) 4+ Good+ Abduction 4 Good Adduction 4+ Good+ External Rotation 4+ Good+ Internal Rotation 4+ Good+ Knee Strength Knee Manual Muscle Testing Right Flexion (S2) 5 Normal Extension (L3) 5 Normal Left Flexion (S2) 4+ Good+ Extension (L3) 4+ Good+ PT-OP-Q Treatments Start: 04/17/19 17:44 Freq: Status: Active Protocol: Document 04/17/19 16:45 HH (Rec: 04/17/19 18:30 [email or web address]) Self-Care/Home Management Treatment Education Patient Education Body Mechanics,Joint Protection,Pain Management, Posture Other Education Education pt on effects of mechanical stress at L5-S1 from prolonged anterior pelvic tilt at standing/ seated position. PT-OP-T Assessment and Plan Start: 04/17/19 17:44 Freq: Status: Active Protocol: Document 04/17/19 16:45 HH (Rec: 04/17/19 18:30 HH [email or web address]) Physical Therapy Assessment Rehab Potential Rehabilitation Potential Excellent Evaluation Complexity Number of Personal Factors/Comorbidities 1-2 Number of Body Systems Impaired 1-2 Clinical Presentation at Evaluation Stable Impairments Impairments Activity Tolerance,Functional Activities,Functional Mobility ,Gait,Pain,Posture,ROM,Soft Tissue Mobility,Strength Goals lifting Impairment unable to lift >10 lbs without LBP Short Term Goal (STG) Pt will be able to order picker object >15 lbs from the floor x 10 times without increase of LBP STG Duration 4 weeks Transcription Coordinator Goal (LTG) Pt will be able to order picker object >20 lbs from the floor x 10 times without increase of LBP (less than 2/10) LTG Duration 8 weeks walking Impairment unable to tolerate >0.5 mile without pain Short Term Goal (STG) Pt will be able to walk stand/ sit 1mile daily with LBP no more than 3/10 STG Duration 4 weeks Transcription Coordinator Goal (LTG) Pt will be able to walk 2 miles 3-4x/week with LBP no more than 2/10 LTG Duration 8 weeks standing/ sitting Impairment unable to stand/ sit at one position >30 mins Short Term Goal (STG) Pt will be able to tolerate stand/ sit >45 mins with LBP no more than 3/10 STG Duration 4 weeks Senior Care Goal (LTG) Pt will be able to tolerate stand/ sit >60 mins with LBP no more than 2/10 in order to tolerate for work/ driving LTG Duration 8 weeks Oswestry LbP Impairment Pt scores 40 on Oswestry LBP Short Term Goal (STG) Pt will score < 30 (20-39% impairment) on [employer] LBP questionnaire to improve her quality of life STG Duration 4 weeks Senior Care Goal (LTG) Pt will score < 20 (1-19% impairment) on [employer] LBP questionnaire to improve her quality of life LTG Duration 8 weeks Assessment Summary Assessment Clara is a 24 y/o female who presents to the clinic today for evaluation of her chronic LBP since 6 years ago, referred by Dr. Goncalves. Through movement assessment, pt has reduced pain with standing trunk flexion but increased pain with standing trunk extension. There's noticeable lack of thoracic and upper lumbar (L1-L4) extension mobility which led to angulation at L5-S1. Pt also stands with a significant anterior pelvic tilt with hyperextended knees and plantarflexed ankles. She was also positive with prone instability test and pain reduced by unilateral hip extension which indicates lack of trunk stability with extremity movements. Pt will be a good candidate to improve her thoracic extension mobility, upper lumbar extension mobility, lower lumbar stability and flexion mobility in order to improve her quality of life. Physical Therapy Plan Frequency and Duration Frequency of Treatment 2x/Week Duration of Treatment 8 weeks Plan of Care Start Date 04/17/19 Plan of Care End Date 06/16/19 Therapeutic Interventions Therapeutic Interventions Balance Training,Gait Training ,Home Exercise Program,Joint Mobilizations,Manual Therapy, Neuromuscular Re-education, Patient/Caregiver Education, Self-Care/Home Management,Soft Tissue Mobilization,Taping, Therapeutic Activities, Therapeutic Exercises Modalities Cold Pack/Ice Massage,Electric Stimulation,Hot Packs, Infrared Therapy,Iontophoresis ,Paraffin Bath,Traction- Mechanical,Ultrasound Next Visit Focus/Plan Next Note Type Treatment Note Next Visit Plan check hip extension mobility introduce thoracic extension, rotation through foam roller, shoulder flexion followed by cat camel for segmental lumbar flexion
--- NOTE | 2019-04-17 18:30 | PT.OPPOC ---
Physical, Occupational & Speech Therapy At [facility] Current Diagnoses Other chronic pain (04/17/19) Spondylosis without myelopathy or radiculopathy, lumbosacral region (04/17/19) Other intervertebral disc degeneration, lumbar region (04/17/19) Low back pain (04/17/19) Visit Care Team Role Provider Type Krissy Goncalves DO Attending Provider Physician Primary Care Provider Specialty: [facility] Address: [address] [place] [address], [address], [facility] Email: [email or web address] Plan Of Care PT-OP-T Assessment and Plan Start: 04/17/19 17:44 Freq: Status: Active Protocol: Document 04/17/19 16:45 HH (Rec: 04/17/19 18:30 HH [email or web address]) Physical Therapy Assessment Rehab Potential Rehabilitation Potential Excellent Evaluation Complexity Number of Personal Factors/Comorbidities 1-2 Number of Body Systems Impaired 1-2 Clinical Presentation at Evaluation Stable Impairments Impairments Activity Tolerance,Functional Activities,Functional Mobility ,Gait,Pain,Posture,ROM,Soft Tissue Mobility,Strength Goals lifting Impairment unable to lift >10 lbs without LBP Short Term Goal (STG) Pt will be able to vegetable picker object >15 lbs from the floor x 10 times without increase of LBP STG Duration 4 weeks Lab Manager Goal (LTG) Pt will be able to vegetable picker object >20 lbs from the floor x 10 times without increase of LBP (less than 2/10) LTG Duration 8 weeks walking Impairment unable to tolerate >0.5 mile without pain Short Term Goal (STG) Pt will be able to walk stand/ sit 1mile daily with LBP no more than 3/10 STG Duration 4 weeks Lab Manager Goal (LTG) Pt will be able to walk 2 miles 3-4x/week with LBP no more than 2/10 LTG Duration 8 weeks standing/ sitting Impairment unable to stand/ sit at one position >30 mins Short Term Goal (STG) Pt will be able to tolerate stand/ sit >45 mins with LBP no more than 3/10 STG Duration 4 weeks Lab Manager Goal (LTG) Pt will be able to tolerate stand/ sit >60 mins with LBP no more than 2/10 in order to tolerate for work/ driving LTG Duration 8 weeks Oswestry LbP Impairment Pt scores 40 on Oswestry LBP Short Term Goal (STG) Pt will score < 30 (20-39% impairment) on [employer] LBP questionnaire to improve her quality of life STG Duration 4 weeks [facility] Goal (LTG) Pt will score < 20 (1-19% impairment) on [employer] LBP questionnaire to improve her quality of life LTG Duration 8 weeks Assessment Summary Assessment Clara is a 24 y/o female who presents to the clinic today for evaluation of her chronic LBP since 6 years ago, referred by Dr. Goncalves. Through movement assessment, pt has reduced pain with standing trunk flexion but increased pain with standing trunk extension. There's noticeable lack of thoracic and upper lumbar (L1-L4) extension mobility which led to angulation at L5-S1. Pt also stands with a significant anterior pelvic tilt with hyperextended knees and plantarflexed ankles. She was also positive with prone instability test and pain reduced by unilateral hip extension which indicates lack of trunk stability with extremity movements. Pt will be a good candidate to improve her thoracic extension mobility, upper lumbar extension mobility, lower lumbar stability and flexion mobility in order to improve her quality of life. Physical Therapy Plan Frequency and Duration Frequency of Treatment 2x/Week Duration of Treatment 8 weeks Plan of Care Start Date 04/17/19 Plan of Care End Date 06/16/19 Therapeutic Interventions Therapeutic Interventions Balance Training,Gait Training ,Home Exercise Program,Joint Mobilizations,Manual Therapy, Neuromuscular Re-education, Patient/Caregiver Education, Self-Care/Home Management,Soft Tissue Mobilization,Taping, Therapeutic Activities, Therapeutic Exercises Modalities Cold Pack/Ice Massage,Electric Stimulation,Hot Packs, Infrared Therapy,Iontophoresis ,Paraffin Bath,Traction- Mechanical,Ultrasound Next Visit Focus/Plan Next Note Type Treatment Note Next Visit Plan check hip extension mobility introduce thoracic extension, rotation through foam roller, shoulder flexion followed by cat camel for segmental lumbar flexion Plan of Care Dates Plan of Care Start Date 04/17/19 Plan of Care End Date 06/16/19 Electronically Signed by: Vernon Schmitt, PT 04/17/19 8701 Please Sign and Return: I have reviewed this Plan of Care and certify that the skilled therapy services above are required to meet the patient?s needs. Physician Signature Date Printed Name and Credentials Clinical Instructor Signature Printed Name and Credentials
--- NOTE | 2019-04-25 18:29 | PT.OTN ---
Current Diagnoses Other chronic pain (04/25/19) Spondylosis without myelopathy or radiculopathy, lumbosacral region (04/25/19) Other intervertebral disc degeneration, lumbar region (04/25/19) Low back pain (04/25/19) Physical Therapy Treatment Note PT-OP-A Visit Information Start: 04/17/19 17:44 Freq: Status: Active Protocol: Document 04/25/19 16:51 HH (Rec: 04/25/19 18:28 HH [email or web address]) Out-Patient Physical Therapy Visit Information Visit Information Visit Type Treatment Note Visit Start Time 16:51 Visit Stop Time 17:30 Total Visit Minutes 39 Visit Number 2/8 Number of MORTGAGE LOAN REVIEWER Visits 0 PT-OP-B Current Condition Start: 04/17/19 17:44 Freq: Status: Active Protocol: Document 04/17/19 16:45 HH (Rec: 04/17/19 18:30 HH [email or web address]) Current Condition History of Current Condition Onset Date 6 years ago Current Complaints Chronic low back pain, unable to lift and stand for long period of time History of Current Condition Clara is a 24 y/o female who presents to the clinic today for evaluation of her chronic LBP, referred by Dr. Goncalves. 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 She reports that her low back pain (centered) will frequently radiate into her anterior thighs. It aggravates by walking on uneven terrain and lifting, sitting or standing for extended periods. It relieved by positional changes , lying down supine and forward bending. No relief with cyclobenzaprine, tramaol, oxycodone. Pt had 2 rounds of PT during the past 6 years and she reports it was helpful but unable to sustain. Pt also had a steroid injection 2 .5 years ago and it was helpful for 2 years. Prior Treatments and Tests MRI 02/16/19 There is only a small degree of degenerative disc disease and facet osteoarthritis along the lumbosacral spine, and stable over time to the L5 -S1 level where was slight degree of interval worsening of disc height reduction, disc desiccation and left greater than right facet osteoarthritis can be seen. A definite source of nerve root impingement is not found. No disc herniation has developed. Treatment Goals Patient/Caregiver Goals 1. To be pain free for lifting , walking and sitting Current Functional Impairments (Reported) Functional Limitations- Other Unable to stand / sit in one position > 30 mins Unable to lift objects >10lbs from the floor without pain unable to amb >1/2 mile without pain PT-OP-C Subjective Start: 04/17/19 17:44 Freq: Status: Active Protocol: Document 04/25/19 16:51 HH (Rec: 04/25/19 18:29 HH [email or web address]) OP-PT Subjective Patient Comments Patient Comments My back feels very sore after standing for a couple hours at work today. Patient Reported Progress Same PT-OP-F Manual Assessment Start: 04/17/19 17:44 Freq: Status: Active Protocol: Document 04/17/19 16:45 HH (Rec: 04/17/19 18:30 HH [email or web address]) Manual Assessments Soft Tissue Assessment Soft Tissue Mobility Assessment tenderness to pressure on lumbar paraspinals Joint Mobility Assessment Joint Mobility Assessment hypomobility for extension at L1-L4 and T1-T8 PT-OP-J Posture/Palpation/Skin Start: 04/17/19 17:44 Freq: Status: Active Protocol: Document 04/17/19 16:45 HH (Rec: 04/17/19 18:30 HH [email or web address]) Posture Evaluation Position Standing Evaluation View Lateral Head/C-Spine Posture Forward Head T-Spine Posture Increased Kyphosis L-Spine Posture Increased Lordosis Shoulder Posture (L) Rounded,(R) Rounded Pelvis Posture Anteriorly Tilted Knee Posture (L) Genu Recurvatum,(R) Genu Recurvatum Ankle/Foot Posture (L) Plantarflexed,(R) Plantarflexed PT-OP-K Range of Motion Start: 04/17/19 17:44 Freq: Status: Active Protocol: Document 04/17/19 16:45 HH (Rec: 04/17/19 18:30 HH [email or web address]) Lumbar Spine Range of Motion Lumbar Spine Active Percentage Testing Position Standing Comments pt is able to touch the floor with good segmental flexion mobility extension angulation noted at L5-S1 during trunk extension( pt's hand pointed ceiling only ) PT-OP-L Special Tests Start: 04/17/19 17:44 Freq: Status: Active Protocol: Document 04/17/19 16:45 HH (Rec: 04/17/19 18:30 HH [email or web address]) Special Tests Lumbar Spine Special Tests Straight Leg Raise Test Results +ve B Comments poor engagement of abdominals and exaccerbation LBP Standing Flexion Test Results -ve Comments -ve for scoliosis Prone Instability Test Test Results +VE B Comments decreased pain with unilateral hip extension facet joint Test Results +VE B Comments pain reproduced during extension PT-OP-M Strength Start: 04/17/19 17:44 Freq: Status: Active Protocol: Document 04/17/19 16:45 HH (Rec: 04/17/19 18:30 [email or web address]) Hip Strength Hip Manual Muscle Testing Right Flexion (L2) 5 Normal Extension (S1) 5 Normal Abduction 5 Normal Adduction 5 Normal External Rotation 5 Normal Internal Rotation 5 Normal Left Flexion (L2) 5 Normal Extension (S1) 4+ Good+ Abduction 4 Good Adduction 4+ Good+ External Rotation 4+ Good+ Internal Rotation 4+ Good+ Knee Strength Knee Manual Muscle Testing Right Flexion (S2) 5 Normal Extension (L3) 5 Normal Left Flexion (S2) 4+ Good+ Extension (L3) 4+ Good+ PT-OP-Q Treatments Start: 04/17/19 17:44 Freq: Status: Active Protocol: Document 04/25/19 16:51 HH (Rec: 04/25/19 18:28 [email or web address]) Therapeutic Exercises Supine Exercises T/S extension Equipment Used with foam roller and mid thoracic. Reps/Minutes 4 mins supine knee to chest Side bilateral Reps/Minutes 10 secs hold x 4 Prone Exercises hip ext Prone Exercise Name hip ext without lumbar extension Side bilateral Equipment Used pillows underneath abdominal Reps/Minutes 8 x 2 cat camel Prone Exercise Name isolated lumbar ext and flexion Reps/Minutes 8 mins Comments flat T/S Sidelying Exercises open book Sidelying Exercise Name cues on T/S rotation Side bilateral Reps/Minutes 8 x2 Comments for hEP Standing Exercises standing PpT Reps/Minutes 2 mins Comments for prolonged standing Manual Therapy Treatment Soft Tissue Mobilization lumbar paraspinals Mobilization Type Sustained Pressure,Trigger Point Release Intensity/Depth Moderate Body Position Prone Manual Traction lumbar distraction Body Position Prone Reps/Duration 6 mins Comments child pose position PT-OP-T Assessment and Plan Start: 04/17/19 17:44 Freq: Status: Active Protocol: Document 04/25/19 16:51 HH (Rec: 04/25/19 18:28 [email or web address]) Physical Therapy Assessment Goals lifting Impairment unable to lift >10 lbs without LBP Short Term Goal (STG) Pt will be able to fern picker object >15 lbs from the floor x 10 times without increase of LBP STG Duration 4 weeks Laborer General Goal (LTG) Pt will be able to fern picker object >20 lbs from the floor x 10 times without increase of LBP (less than 2/10) LTG Duration 8 weeks walking Impairment unable to tolerate >0.5 mile without pain Short Term Goal (STG) Pt will be able to walk stand/ sit 1mile daily with LBP no more than 3/10 STG Duration 4 weeks Laborer General Goal (LTG) Pt will be able to walk 2 miles 3-4x/week with LBP no more than 2/10 LTG Duration 8 weeks standing/ sitting Impairment unable to stand/ sit at one position >30 mins Short Term Goal (STG) Pt will be able to tolerate stand/ sit >45 mins with LBP no more than 3/10 STG Duration 4 weeks Laborer General Goal (LTG) Pt will be able to tolerate stand/ sit >60 mins with LBP no more than 2/10 in order to tolerate for work/ driving LTG Duration 8 weeks Oswestry LbP Impairment Pt scores 40 on Oswestry LBP Short Term Goal (STG) Pt will score < 30 (20-39% impairment) on [employer] LBP questionnaire to improve her quality of life STG Duration 4 weeks Laborer General Goal (LTG) Pt will score < 20 (1-19% impairment) on [employer] LBP questionnaire to improve her quality of life LTG Duration 8 weeks Assessment Summary Assessment pt tc tx well with manual therapy and lumbar flexion based ex. Pt tends to engage paraspinals with prone hip extension but able to correct with verbal cue on activating hip extensors. Provided isolated lumbar cat camel, open book, T/S extension and prone hip ext. Physical Therapy Plan Next Visit Focus/Plan Next Note Type Treatment Note Next Visit Plan cont lumbar flexion base ex followed by T/S extension and rotation ex. introduce core stabiltiy in supine/prone position.
--- NOTE | 2019-04-27 16:14 | PT.OTN ---
Current Diagnoses Other chronic pain (04/27/19) Spondylosis without myelopathy or radiculopathy, lumbosacral region (04/27/19) Other intervertebral disc degeneration, lumbar region (04/27/19) Low back pain (04/27/19) Physical Therapy Treatment Note PT-OP-A Visit Information Start: 04/17/19 17:44 Freq: Status: Active Protocol: Document 04/27/19 15:18 HH (Rec: 04/27/19 16:14 HH [id number]) Out-Patient Physical Therapy Visit Information Visit Information Visit Type Treatment Note Visit Start Time 15:18 Visit Stop Time 16:00 Total Visit Minutes 42 Visit Number 3/8 Number of SEED PACKER Visits 0 PT-OP-B Current Condition Start: 04/17/19 17:44 Freq: Status: Active Protocol: Document 04/17/19 16:45 HH (Rec: 04/17/19 18:30 HH [email or web address]) Current Condition History of Current Condition Onset Date 6 years ago Current Complaints Chronic low back pain, unable to lift and stand for long period of time History of Current Condition Clara is a 24 y/o female who presents to the clinic today for evaluation of her chronic LBP, referred by Dr. Goncalves. 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 She reports that her low back pain (centered) will frequently radiate into her anterior thighs. It aggravates by walking on uneven terrain and lifting, sitting or standing for extended periods. It relieved by positional changes , lying down supine and forward bending. No relief with cyclobenzaprine, tramaol, oxycodone. Pt had 2 rounds of PT during the past 6 years and she reports it was helpful but unable to sustain. Pt also had a steroid injection 2 .5 years ago and it was helpful for 2 years. Prior Treatments and Tests MRI 02/16/19 There is only a small degree of degenerative disc disease and facet osteoarthritis along the lumbosacral spine, and stable over time to the L5 -S1 level where was slight degree of interval worsening of disc height reduction, disc desiccation and left greater than right facet osteoarthritis can be seen. A definite source of nerve root impingement is not found. No disc herniation has developed. Treatment Goals Patient/Caregiver Goals 1. To be pain free for lifting , walking and sitting Current Functional Impairments (Reported) Functional Limitations- Other Unable to stand / sit in one position > 30 mins Unable to lift objects >10lbs from the floor without pain unable to amb >1/2 mile without pain PT-OP-C Subjective Start: 04/17/19 17:44 Freq: Status: Active Protocol: Document 04/27/19 15:18 HH (Rec: 04/27/19 16:14 HH [id number]) OP-PT Subjective Patient Comments Patient Comments I dont know why i have this shooting pain from my R hip to side of my R thigh today. And everytime i bend down it bothers me at midpoint. PT-OP-F Manual Assessment Start: 04/17/19 17:44 Freq: Status: Active Protocol: Document 04/17/19 16:45 HH (Rec: 04/17/19 18:30 HH [email or web address]) Manual Assessments Soft Tissue Assessment Soft Tissue Mobility Assessment tenderness to pressure on lumbar paraspinals Joint Mobility Assessment Joint Mobility Assessment hypomobility for extension at L1-L4 and T1-T8 PT-OP-J Posture/Palpation/Skin Start: 04/17/19 17:44 Freq: Status: Active Protocol: Document 04/17/19 16:45 HH (Rec: 04/17/19 18:30 HH [email or web address]) Posture Evaluation Position Standing Evaluation View Lateral Head/C-Spine Posture Forward Head T-Spine Posture Increased Kyphosis L-Spine Posture Increased Lordosis Shoulder Posture (L) Rounded,(R) Rounded Pelvis Posture Anteriorly Tilted Knee Posture (L) Genu Recurvatum,(R) Genu Recurvatum Ankle/Foot Posture (L) Plantarflexed,(R) Plantarflexed PT-OP-K Range of Motion Start: 04/17/19 17:44 Freq: Status: Active Protocol: Document 04/17/19 16:45 HH (Rec: 04/17/19 18:30 HH [email or web address]) Lumbar Spine Range of Motion Lumbar Spine Active Percentage Testing Position Standing Comments pt is able to touch the floor with good segmental flexion mobility extension angulation noted at L5-S1 during trunk extension( pt's hand pointed ceiling only ) PT-OP-L Special Tests Start: 04/17/19 17:44 Freq: Status: Active Protocol: Document 04/17/19 16:45 HH (Rec: 04/17/19 18:30 [email or web address]) Special Tests Lumbar Spine Special Tests Straight Leg Raise Test Results +ve B Comments poor engagement of abdominals and exaccerbation LBP Standing Flexion Test Results -ve Comments -ve for scoliosis Prone Instability Test Test Results +VE B Comments decreased pain with unilateral hip extension facet joint Test Results +VE B Comments pain reproduced during extension PT-OP-M Strength Start: 04/17/19 17:44 Freq: Status: Active Protocol: Document 04/17/19 16:45 HH (Rec: 04/17/19 18:30 [email or web address]) Hip Strength Hip Manual Muscle Testing Right Flexion (L2) 5 Normal Extension (S1) 5 Normal Abduction 5 Normal Adduction 5 Normal External Rotation 5 Normal Internal Rotation 5 Normal Left Flexion (L2) 5 Normal Extension (S1) 4+ Good+ Abduction 4 Good Adduction 4+ Good+ External Rotation 4+ Good+ Internal Rotation 4+ Good+ Knee Strength Knee Manual Muscle Testing Right Flexion (S2) 5 Normal Extension (L3) 5 Normal Left Flexion (S2) 4+ Good+ Extension (L3) 4+ Good+ PT-OP-Q Treatments Start: 04/17/19 17:44 Freq: Status: Active Protocol: Document 04/27/19 15:18 HH (Rec: 04/27/19 16:14 [id number]) Therapeutic Exercises Supine Exercises tennis ball release Supine Exercise Name at R gluteal Equipment Used tennis ball Comments for HEP Manual Therapy Treatment Soft Tissue Mobilization lumbar paraspinals Mobilization Type Sustained Pressure,Trigger Point Release Intensity/Depth Moderate Body Position Prone Joint Mobilizations PA mob Joint Sacrum Grade II Body Position Prone Reps/Duration 4 mins hip stabilization Joint SI joint stabilization Body Position Standing Reps/Duration 5 reps x 2 Comments for standing toe touch movements. Manual Traction R hip distraction Body Position Supine Reps/Duration 10 mins Comments long and short axis lumbar distraction Body Position Prone Reps/Duration 6 mins Comments child pose position PT-OP-T Assessment and Plan Start: 04/17/19 17:44 Freq: Status: Active Protocol: Document 04/27/19 15:18 HH (Rec: 04/27/19 16:14 [id number]) Physical Therapy Assessment Goals lifting Impairment unable to lift >10 lbs without LBP Short Term Goal (STG) Pt will be able to pickle maker object >15 lbs from the floor x 10 times without increase of LBP STG Duration 4 weeks Penitentiary Goal (LTG) Pt will be able to pickle maker object >20 lbs from the floor x 10 times without increase of LBP (less than 2/10) LTG Duration 8 weeks walking Impairment unable to tolerate >0.5 mile without pain Short Term Goal (STG) Pt will be able to walk stand/ sit 1mile daily with LBP no more than 3/10 STG Duration 4 weeks [employer] Administrator Goal (LTG) Pt will be able to walk 2 miles 3-4x/week with LBP no more than 2/10 LTG Duration 8 weeks standing/ sitting Impairment unable to stand/ sit at one position >30 mins Short Term Goal (STG) Pt will be able to tolerate stand/ sit >45 mins with LBP no more than 3/10 STG Duration 4 weeks [employer] Administrator Goal (LTG) Pt will be able to tolerate stand/ sit >60 mins with LBP no more than 2/10 in order to tolerate for work/ driving LTG Duration 8 weeks Oswestry LbP Impairment Pt scores 40 on Oswestry LBP Short Term Goal (STG) Pt will score < 30 (20-39% impairment) on [employer] LBP questionnaire to improve her quality of life STG Duration 4 weeks [employer] Administrator Goal (LTG) Pt will score < 20 (1-19% impairment) on [employer] LBP questionnaire to improve her quality of life LTG Duration 8 weeks Assessment Summary Assessment Pt has radiating pain at R hip and thigh today which got aggravated with forward bending and R lateral trunk flexion. Her R gluteal region is also very tender to pressure. Pt symptoms improved after hip distraction and SIJ stabilization. Will cont monitor pt's progress. Physical Therapy Plan Next Visit Focus/Plan Next Note Type Treatment Note Next Visit Plan reassess pt's symptoms cont lumbar flexion base ex followed by T/S extension and rotation ex. introduce core stabiltiy in supine/prone position.
--- NOTE | 2019-05-03 18:44 | PT.OTN ---
Current Diagnoses Other chronic pain (05/03/19) Spondylosis without myelopathy or radiculopathy, lumbosacral region (05/03/19) Other intervertebral disc degeneration, lumbar region (05/03/19) Low back pain (05/03/19) Physical Therapy Treatment Note PT-OP-A Visit Information Start: 04/17/19 17:44 Freq: Status: Active Protocol: Document 05/03/19 18:32 HH (Rec: 05/03/19 18:43 HH [id number]) Out-Patient Physical Therapy Visit Information Visit Information Visit Type Treatment Note Visit Note Pt went to see for f /u with MRI result from January We did review the need for core strengthening to strengthen the multifidus muscle around the L4-5 and L5- S1 facets. The [facility] back exercises were reviewed and provided for her today. We will also begin a trial with Celebrex 200 mg capsules 1 capsule p.o. q.day as well as cyclobenzaprine 10 mg tablets 1 tablet p.o. b.i.d. as needed. Based upon her response with the above-stated regimen we may consider intra -articular injections to the L4-5 L5-S1 facets of further offset her symptoms in a nonsurgical fashion. Visit Start Time 17:32 Visit Stop Time 18:22 Total Visit Minutes 50 Visit Number 4/8 Number of INTELLECTUAL PROPERTY LAWYER Visits 0 PT-OP-B Current Condition Start: 04/17/19 17:44 Freq: Status: Active Protocol: Document 04/17/19 16:45 HH (Rec: 04/17/19 18:30 HH [email or web address]) Current Condition History of Current Condition Onset Date 6 years ago Current Complaints Chronic low back pain, unable to lift and stand for long period of time History of Current Condition Clara is a 24 y/o female who presents to the clinic today for evaluation of her chronic LBP, referred by Dr. Goncalves. 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 She reports that her low back pain (centered) will frequently radiate into her anterior thighs. It aggravates by walking on uneven terrain and lifting, sitting or standing for extended periods. It relieved by positional changes , lying down supine and forward bending. No relief with cyclobenzaprine, tramaol, oxycodone. Pt had 2 rounds of PT during the past 6 years and she reports it was helpful but unable to sustain. Pt also had a steroid injection 2 .5 years ago and it was helpful for 2 years. Prior Treatments and Tests MRI 02/16/19 There is only a small degree of degenerative disc disease and facet osteoarthritis along the lumbosacral spine, and stable over time to the L5 -S1 level where was slight degree of interval worsening of disc height reduction, disc desiccation and left greater than right facet osteoarthritis can be seen. A definite source of nerve root impingement is not found. No disc herniation has developed. Treatment Goals Patient/Caregiver Goals 1. To be pain free for lifting , walking and sitting Current Functional Impairments (Reported) Functional Limitations- Other Unable to stand / sit in one position > 30 mins Unable to lift objects >10lbs from the floor without pain unable to amb >1/2 mile without pain PT-OP-C Subjective Start: 04/17/19 17:44 Freq: Status: Active Protocol: Document 05/03/19 18:32 HH (Rec: 05/03/19 18:43 HH [id number]) OP-PT Subjective Patient Comments Patient Comments Dr. Shafer told me i have a dislocated coccyx from years ago that explains why i have trouble sitting. Im feeling pretty good today probably because it was the injection and Celebrax effect. PT-OP-F Manual Assessment Start: 04/17/19 17:44 Freq: Status: Active Protocol: Document 04/17/19 16:45 HH (Rec: 04/17/19 18:30 HH [email or web address]) Manual Assessments Soft Tissue Assessment Soft Tissue Mobility Assessment tenderness to pressure on lumbar paraspinals Joint Mobility Assessment Joint Mobility Assessment hypomobility for extension at L1-L4 and T1-T8 PT-OP-J Posture/Palpation/Skin Start: 04/17/19 17:44 Freq: Status: Active Protocol: Document 04/17/19 16:45 HH (Rec: 04/17/19 18:30 HH [email or web address]) Posture Evaluation Position Standing Evaluation View Lateral Head/C-Spine Posture Forward Head T-Spine Posture Increased Kyphosis L-Spine Posture Increased Lordosis Shoulder Posture (L) Rounded,(R) Rounded Pelvis Posture Anteriorly Tilted Knee Posture (L) Genu Recurvatum,(R) Genu Recurvatum Ankle/Foot Posture (L) Plantarflexed,(R) Plantarflexed PT-OP-K Range of Motion Start: 04/17/19 17:44 Freq: Status: Active Protocol: Document 04/17/19 16:45 HH (Rec: 04/17/19 18:30 HH [email or web address]) Lumbar Spine Range of Motion Lumbar Spine Active Percentage Testing Position Standing Comments pt is able to touch the floor with good segmental flexion mobility extension angulation noted at L5-S1 during trunk extension( pt's hand pointed ceiling only ) PT-OP-L Special Tests Start: 04/17/19 17:44 Freq: Status: Active Protocol: Document 04/17/19 16:45 HH (Rec: 04/17/19 18:30 HH [email or web address]) Special Tests Lumbar Spine Special Tests Straight Leg Raise Test Results +ve B Comments poor engagement of abdominals and exaccerbation LBP Standing Flexion Test Results -ve Comments -ve for scoliosis Prone Instability Test Test Results +VE B Comments decreased pain with unilateral hip extension facet joint Test Results +VE B Comments pain reproduced during extension PT-OP-M Strength Start: 04/17/19 17:44 Freq: Status: Active Protocol: Document 04/17/19 16:45 HH (Rec: 04/17/19 18:30 HH [email or web address]) Hip Strength Hip Manual Muscle Testing Right Flexion (L2) 5 Normal Extension (S1) 5 Normal Abduction 5 Normal Adduction 5 Normal External Rotation 5 Normal Internal Rotation 5 Normal Left Flexion (L2) 5 Normal Extension (S1) 4+ Good+ Abduction 4 Good Adduction 4+ Good+ External Rotation 4+ Good+ Internal Rotation 4+ Good+ Knee Strength Knee Manual Muscle Testing Right Flexion (S2) 5 Normal Extension (L3) 5 Normal Left Flexion (S2) 4+ Good+ Extension (L3) 4+ Good+ PT-OP-Q Treatments Start: 04/17/19 17:44 Freq: Status: Active Protocol: Document 05/03/19 18:32 HH (Rec: 05/03/19 18:43 HH [id number]) Therapeutic Exercises Supine Exercises SLR Side right Reps/Minutes 1 min Comments c/o pain at the end range of eccentric lowering. T/S extension Equipment Used with foam roller and mid thoracic. Reps/Minutes 4 mins supine knee to chest Supine Exercise Name isometrics Side bilateral Reps/Minutes 10 secs hold x 8 Prone Exercises prone press Prone Exercise Name on elbow Reps/Minutes 15 x 2 Comments pt denies pain/ discomfort Manual Therapy Treatment Soft Tissue Mobilization lumbar paraspinals Mobilization Type Sustained Pressure,Trigger Point Release Intensity/Depth Moderate Body Position Prone Manual Traction R hip distraction Body Position Supine Reps/Duration 10 mins Comments long and short axis lumbar distraction Body Position Prone Reps/Duration 6 mins Comments child pose position PT-OP-T Assessment and Plan Start: 04/17/19 17:44 Freq: Status: Active Protocol: Document 05/03/19 18:32 (Rec: 05/03/19 18:43 [id number]) Physical Therapy Assessment Goals lifting Impairment unable to lift >10 lbs without LBP Short Term Goal (STG) Pt will be able to order picker object >15 lbs from the floor x 10 times without increase of LBP STG Duration 4 weeks [employer] Social Worker Goal (LTG) Pt will be able to order picker object >20 lbs from the floor x 10 times without increase of LBP (less than 2/10) LTG Duration 8 weeks walking Impairment unable to tolerate >0.5 mile without pain Short Term Goal (STG) Pt will be able to walk stand/ sit 1mile daily with LBP no more than 3/10 STG Duration 4 weeks Retirement Goal (LTG) Pt will be able to walk 2 miles 3-4x/week with LBP no more than 2/10 LTG Duration 8 weeks standing/ sitting Impairment unable to stand/ sit at one position >30 mins Short Term Goal (STG) Pt will be able to tolerate stand/ sit >45 mins with LBP no more than 3/10 STG Duration 4 weeks Retirement Goal (LTG) Pt will be able to tolerate stand/ sit >60 mins with LBP no more than 2/10 in order to tolerate for work/ driving LTG Duration 8 weeks Oswestry LbP Impairment Pt scores 40 on Oswestry LBP Short Term Goal (STG) Pt will score < 30 (20-39% impairment) on [employer] LBP questionnaire to improve her quality of life STG Duration 4 weeks Retirement Goal (LTG) Pt will score < 20 (1-19% impairment) on [employer] LBP questionnaire to improve her quality of life LTG Duration 8 weeks Assessment Summary Assessment Pt has a new MRI result and f/ u with last weekend who reports withfacet degenerative low back pain most predominantly at the L4-5 and L5-S1 levels. He recommended cont core strengthening to strengthen the multifidus muscle around the L4-5 and L5-S1 facets. Reclarified with pt today regarding her symptoms, pt reports her symptoms tend to get worse with trunk flexion movement. Started trunk extension based ex today ( prone press) and trunk stability ex. Pt denies any discomfort/ radiating pain. Physical Therapy Plan Next Visit Focus/Plan Next Note Type Treatment Note Next Visit Plan reassess pt's symptoms after lumbar extension ex. T/S extension lumbar stability ex. R glute activation ex.
--- NOTE | 2019-05-09 18:52 | PT.OTN ---
Current Diagnoses Other chronic pain (05/09/19) Spondylosis without myelopathy or radiculopathy, lumbosacral region (05/09/19) Other intervertebral disc degeneration, lumbar region (05/09/19) Low back pain (05/09/19) Physical Therapy Treatment Note PT-OP-A Visit Information Start: 04/17/19 17:44 Freq: Status: Active Protocol: Document 05/09/19 17:32 HH (Rec: 05/09/19 18:52 HH [email or web address]) Out-Patient Physical Therapy Visit Information Visit Information Visit Type Treatment Note Visit Start Time 17:32 Visit Stop Time 18:15 Total Visit Minutes 43 Visit Number 5/8 Number of CLINICAL PSYCHOLOGIST LICENSED Visits 0 PT-OP-B Current Condition Start: 04/17/19 17:44 Freq: Status: Active Protocol: Document 04/17/19 16:45 HH (Rec: 04/17/19 18:30 HH [email or web address]) Current Condition History of Current Condition Onset Date 6 years ago Current Complaints Chronic low back pain, unable to lift and stand for long period of time History of Current Condition Clara is a 24 y/o female who presents to the clinic today for evaluation of her chronic LBP, referred by Dr. Goncalves. 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 She reports that her low back pain (centered) will frequently radiate into her anterior thighs. It aggravates by walking on uneven terrain and lifting, sitting or standing for extended periods. It relieved by positional changes , lying down supine and forward bending. No relief with cyclobenzaprine, tramaol, oxycodone. Pt had 2 rounds of PT during the past 6 years and she reports it was helpful but unable to sustain. Pt also had a steroid injection 2 .5 years ago and it was helpful for 2 years. Prior Treatments and Tests MRI 02/16/19 There is only a small degree of degenerative disc disease and facet osteoarthritis along the lumbosacral spine, and stable over time to the L5 -S1 level where was slight degree of interval worsening of disc height reduction, disc desiccation and left greater than right facet osteoarthritis can be seen. A definite source of nerve root impingement is not found. No disc herniation has developed. Treatment Goals Patient/Caregiver Goals 1. To be pain free for lifting , walking and sitting Current Functional Impairments (Reported) Functional Limitations- Other Unable to stand / sit in one position > 30 mins Unable to lift objects >10lbs from the floor without pain unable to amb >1/2 mile without pain PT-OP-C Subjective Start: 04/17/19 17:44 Freq: Status: Active Protocol: Document 05/09/19 17:32 HH (Rec: 05/09/19 18:52 HH [id number]) OP-PT Subjective Patient Comments Patient Comments I just started to take Celebrax since yesterday and it seems to relieve my pain without causing stomach issues . PT-OP-F Manual Assessment Start: 04/17/19 17:44 Freq: Status: Active Protocol: Document 04/17/19 16:45 HH (Rec: 04/17/19 18:30 HH [email or web address]) Manual Assessments Soft Tissue Assessment Soft Tissue Mobility Assessment tenderness to pressure on lumbar paraspinals Joint Mobility Assessment Joint Mobility Assessment hypomobility for extension at L1-L4 and T1-T8 PT-OP-J Posture/Palpation/Skin Start: 04/17/19 17:44 Freq: Status: Active Protocol: Document 04/17/19 16:45 HH (Rec: 04/17/19 18:30 HH [email or web address]) Posture Evaluation Position Standing Evaluation View Lateral Head/C-Spine Posture Forward Head T-Spine Posture Increased Kyphosis L-Spine Posture Increased Lordosis Shoulder Posture (L) Rounded,(R) Rounded Pelvis Posture Anteriorly Tilted Knee Posture (L) Genu Recurvatum,(R) Genu Recurvatum Ankle/Foot Posture (L) Plantarflexed,(R) Plantarflexed PT-OP-K Range of Motion Start: 04/17/19 17:44 Freq: Status: Active Protocol: Document 04/17/19 16:45 HH (Rec: 04/17/19 18:30 HH [email or web address]) Lumbar Spine Range of Motion Lumbar Spine Active Percentage Testing Position Standing Comments pt is able to touch the floor with good segmental flexion mobility extension angulation noted at L5-S1 during trunk extension( pt's hand pointed ceiling only ) PT-OP-L Special Tests Start: 04/17/19 17:44 Freq: Status: Active Protocol: Document 04/17/19 16:45 HH (Rec: 04/17/19 18:30 HH [email or web address]) Special Tests Lumbar Spine Special Tests Straight Leg Raise Test Results +ve B Comments poor engagement of abdominals and exaccerbation LBP Standing Flexion Test Results -ve Comments -ve for scoliosis Prone Instability Test Test Results +VE B Comments decreased pain with unilateral hip extension facet joint Test Results +VE B Comments pain reproduced during extension PT-OP-M Strength Start: 04/17/19 17:44 Freq: Status: Active Protocol: Document 04/17/19 16:45 (Rec: 04/17/19 18:30 [email or web address]) Hip Strength Hip Manual Muscle Testing Right Flexion (L2) 5 Normal Extension (S1) 5 Normal Abduction 5 Normal Adduction 5 Normal External Rotation 5 Normal Internal Rotation 5 Normal Left Flexion (L2) 5 Normal Extension (S1) 4+ Good+ Abduction 4 Good Adduction 4+ Good+ External Rotation 4+ Good+ Internal Rotation 4+ Good+ Knee Strength Knee Manual Muscle Testing Right Flexion (S2) 5 Normal Extension (L3) 5 Normal Left Flexion (S2) 4+ Good+ Extension (L3) 4+ Good+ PT-OP-Q Treatments Start: 04/17/19 17:44 Freq: Status: Active Protocol: Document 05/09/19 17:32 HH (Rec: 05/09/19 18:52 [email or web address]) Therapeutic Exercises Supine Exercises SLR Supine Exercise Name alternate Side bilateral Reps/Minutes 5 x 3 Comments cues on abd control supine knee to chest Supine Exercise Name isometrics Side bilateral Reps/Minutes 10 secs hold x 8 Prone Exercises hip ext Prone Exercise Name birddog position on elbows Side bilateral Reps/Minutes 8 x 4 Comments cues on prevent trunk rot cat camel Side bilateral Reps/Minutes 8 x2 Sidelying Exercises hip ab Side bilateral Reps/Minutes 6 x2 Comments difficulty for eccentric control Standing Exercises hip hike Side bilateral Reps/Minutes 8 x2 Comments difficulty noted with RLE Manual Therapy Treatment Soft Tissue Mobilization lumbar paraspinals Mobilization Type Sustained Pressure,Trigger Point Release Intensity/Depth Moderate Body Position Prone PT-OP-T Assessment and Plan Start: 04/17/19 17:44 Freq: Status: Active Protocol: Document 05/09/19 17:32 HH (Rec: 05/09/19 18:52 [email or web address]) Physical Therapy Assessment Goals lifting Impairment unable to lift >10 lbs without LBP Short Term Goal (STG) Pt will be able to pick pulling machine operator object >15 lbs from the floor x 10 times without increase of LBP STG Duration 4 weeks Miner Pick Goal (LTG) Pt will be able to pick pulling machine operator object >20 lbs from the floor x 10 times without increase of LBP (less than 2/10) LTG Duration 8 weeks walking Impairment unable to tolerate >0.5 mile without pain Short Term Goal (STG) Pt will be able to walk stand/ sit 1mile daily with LBP no more than 3/10 STG Duration 4 weeks Group Home Goal (LTG) Pt will be able to walk 2 miles 3-4x/week with LBP no more than 2/10 LTG Duration 8 weeks standing/ sitting Impairment unable to stand/ sit at one position >30 mins Short Term Goal (STG) Pt will be able to tolerate stand/ sit >45 mins with LBP no more than 3/10 STG Duration 4 weeks Group Home Goal (LTG) Pt will be able to tolerate stand/ sit >60 mins with LBP no more than 2/10 in order to tolerate for work/ driving LTG Duration 8 weeks Oswestry LbP Impairment Pt scores 40 on Oswestry LBP Short Term Goal (STG) Pt will score < 30 (20-39% impairment) on [employer] LBP questionnaire to improve her quality of life STG Duration 4 weeks Group Home Goal (LTG) Pt will score < 20 (1-19% impairment) on [employer] LBP questionnaire to improve her quality of life LTG Duration 8 weeks Assessment Summary Assessment Pt's pain has significantly improved today possibly d/t her new pain medication. She also showed improved isolated hip abd and extensor activation but cont to have insufficient R hip stability especially for WB position. HEP includes birddog on elbows , cat camel, hollow hold, clamshell.
--- NOTE | 2019-05-16 18:56 | PT.OTN ---
Current Diagnoses Other chronic pain (05/09/19) Spondylosis without myelopathy or radiculopathy, lumbosacral region (05/09/19) Other intervertebral disc degeneration, lumbar region (05/09/19) Low back pain (05/09/19) Physical Therapy Treatment Note PT-OP-A Visit Information Start: 04/17/19 17:44 Freq: Status: Active Protocol: Document 05/16/19 18:46 HH (Rec: 05/16/19 18:56 HH [email or web address]) Out-Patient Physical Therapy Visit Information Visit Information Visit Type Treatment Note Visit Start Time 17:31 Visit Stop Time 18:15 Total Visit Minutes 44 Visit Number 6/8 Number of SUPERVISOR DRY CLEANING Visits 0 PT-OP-B Current Condition Start: 04/17/19 17:44 Freq: Status: Active Protocol: Document 04/17/19 16:45 HH (Rec: 04/17/19 18:30 HH [email or web address]) Current Condition History of Current Condition Onset Date 6 years ago Current Complaints Chronic low back pain, unable to lift and stand for long period of time History of Current Condition Clara is a 24 y/o female who presents to the clinic today for evaluation of her chronic LBP, referred by Dr. Goncalves. 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 She reports that her low back pain (centered) will frequently radiate into her anterior thighs. It aggravates by walking on uneven terrain and lifting, sitting or standing for extended periods. It relieved by positional changes , lying down supine and forward bending. No relief with cyclobenzaprine, tramaol, oxycodone. Pt had 2 rounds of PT during the past 6 years and she reports it was helpful but unable to sustain. Pt also had a steroid injection 2 .5 years ago and it was helpful for 2 years. Prior Treatments and Tests MRI 02/16/19 There is only a small degree of degenerative disc disease and facet osteoarthritis along the lumbosacral spine, and stable over time to the L5 -S1 level where was slight degree of interval worsening of disc height reduction, disc desiccation and left greater than right facet osteoarthritis can be seen. A definite source of nerve root impingement is not found. No disc herniation has developed. Treatment Goals Patient/Caregiver Goals 1. To be pain free for lifting , walking and sitting Current Functional Impairments (Reported) Functional Limitations- Other Unable to stand / sit in one position > 30 mins Unable to lift objects >10lbs from the floor without pain unable to amb >1/2 mile without pain PT-OP-C Subjective Start: 04/17/19 17:44 Freq: Status: Active Protocol: Document 05/16/19 18:46 HH (Rec: 05/16/19 18:56 HH [email or web address]) OP-PT Subjective Patient Comments Patient Comments I still feel my back is getting pressured and sore usually towards the end of the day and Celebrax has been helping me, PT-OP-F Manual Assessment Start: 04/17/19 17:44 Freq: Status: Active Protocol: Document 04/17/19 16:45 HH (Rec: 04/17/19 18:30 HH [email or web address]) Manual Assessments Soft Tissue Assessment Soft Tissue Mobility Assessment tenderness to pressure on lumbar paraspinals Joint Mobility Assessment Joint Mobility Assessment hypomobility for extension at L1-L4 and T1-T8 PT-OP-J Posture/Palpation/Skin Start: 04/17/19 17:44 Freq: Status: Active Protocol: Document 04/17/19 16:45 HH (Rec: 04/17/19 18:30 HH [email or web address]) Posture Evaluation Position Standing Evaluation View Lateral Head/C-Spine Posture Forward Head T-Spine Posture Increased Kyphosis L-Spine Posture Increased Lordosis Shoulder Posture (L) Rounded,(R) Rounded Pelvis Posture Anteriorly Tilted Knee Posture (L) Genu Recurvatum,(R) Genu Recurvatum Ankle/Foot Posture (L) Plantarflexed,(R) Plantarflexed PT-OP-K Range of Motion Start: 04/17/19 17:44 Freq: Status: Active Protocol: Document 04/17/19 16:45 HH (Rec: 04/17/19 18:30 HH [email or web address]) Lumbar Spine Range of Motion Lumbar Spine Active Percentage Testing Position Standing Comments pt is able to touch the floor with good segmental flexion mobility extension angulation noted at L5-S1 during trunk extension( pt's hand pointed ceiling only ) PT-OP-L Special Tests Start: 04/17/19 17:44 Freq: Status: Active Protocol: Document 04/17/19 16:45 HH (Rec: 04/17/19 18:30 HH [email or web address]) Special Tests Lumbar Spine Special Tests Straight Leg Raise Test Results +ve B Comments poor engagement of abdominals and exaccerbation LBP Standing Flexion Test Results -ve Comments -ve for scoliosis Prone Instability Test Test Results +VE B Comments decreased pain with unilateral hip extension facet joint Test Results +VE B Comments pain reproduced during extension PT-OP-M Strength Start: 04/17/19 17:44 Freq: Status: Active Protocol: Document 04/17/19 16:45 HH (Rec: 04/17/19 18:30 [email or web address]) Hip Strength Hip Manual Muscle Testing Right Flexion (L2) 5 Normal Extension (S1) 5 Normal Abduction 5 Normal Adduction 5 Normal External Rotation 5 Normal Internal Rotation 5 Normal Left Flexion (L2) 5 Normal Extension (S1) 4+ Good+ Abduction 4 Good Adduction 4+ Good+ External Rotation 4+ Good+ Internal Rotation 4+ Good+ Knee Strength Knee Manual Muscle Testing Right Flexion (S2) 5 Normal Extension (L3) 5 Normal Left Flexion (S2) 4+ Good+ Extension (L3) 4+ Good+ PT-OP-Q Treatments Start: 04/17/19 17:44 Freq: Status: Active Protocol: Document 05/16/19 18:46 HH (Rec: 05/16/19 18:56 [email or web address]) Therapeutic Exercises Supine Exercises SLR Supine Exercise Name alternate Side bilateral Reps/Minutes 5 x 3 Comments cues on abd control Prone Exercises plank Prone Exercise Name incline prone on elbows. Side bilateral Reps/Minutes 10 secs holdx5 B hip ext Prone Exercise Name prone on table and legs off table Side bilateral Reps/Minutes 5 x 2 Comments UE support on edge on table hip ext Prone Exercise Name birddog position on elbows Side bilateral Reps/Minutes 8 x 4 Comments cues on prevent trunk rot Sidelying Exercises hip ab Side bilateral Reps/Minutes 6 x2 Comments difficulty for eccentric control Standing Exercises standing hip hinge Side bilateral Equipment Used pvc bar behind back Reps/Minutes 8 mins Comments cues on hip flexion with neutral spine Manual Therapy Treatment Soft Tissue Mobilization lumbar paraspinals Mobilization Type Sustained Pressure,Trigger Point Release Intensity/Depth Moderate Body Position Prone Manual Traction R hip distraction Body Position Supine Reps/Duration 10 mins Comments long and short axis PT-OP-T Assessment and Plan Start: 04/17/19 17:44 Freq: Status: Active Protocol: Document 05/16/19 18:46 HH (Rec: 05/16/19 18:56 [email or web address]) Physical Therapy Assessment Goals lifting Impairment unable to lift >10 lbs without LBP Short Term Goal (STG) Pt will be able to picker tender helper object >15 lbs from the floor x 10 times without increase of LBP STG Duration 4 weeks Halfway Goal (LTG) Pt will be able to picker tender helper object >20 lbs from the floor x 10 times without increase of LBP (less than 2/10) LTG Duration 8 weeks walking Impairment unable to tolerate >0.5 mile without pain Short Term Goal (STG) Pt will be able to walk stand/ sit 1mile daily with LBP no more than 3/10 STG Duration 4 weeks Halfway Goal (LTG) Pt will be able to walk 2 miles 3-4x/week with LBP no more than 2/10 LTG Duration 8 weeks standing/ sitting Impairment unable to stand/ sit at one position >30 mins Short Term Goal (STG) Pt will be able to tolerate stand/ sit >45 mins with LBP no more than 3/10 STG Duration 4 weeks Halfway Goal (LTG) Pt will be able to tolerate stand/ sit >60 mins with LBP no more than 2/10 in order to tolerate for work/ driving LTG Duration 8 weeks Oswestry LbP Impairment Pt scores 40 on Oswestry LBP Short Term Goal (STG) Pt will score < 30 (20-39% impairment) on [employer] LBP questionnaire to improve her quality of life STG Duration 4 weeks Halfway Goal (LTG) Pt will score < 20 (1-19% impairment) on [employer] LBP questionnaire to improve her quality of life LTG Duration 8 weeks Assessment Summary Assessment Pt tc tx well with focus on hip strengthening and trunk stabilization. Added hip hinge and plank today, pt denies discomfort. Physical Therapy Plan Next Visit Focus/Plan Next Note Type Treatment Note Next Visit Plan T/S extension lumbar stability ex. R glute activation ex. hip stability ex
--- NOTE | 2019-05-22 17:49 | PT.OTN ---
Current Diagnoses Other chronic pain (05/22/19) Spondylosis without myelopathy or radiculopathy, lumbosacral region (05/22/19) Other intervertebral disc degeneration, lumbar region (05/22/19) Low back pain (05/22/19) Physical Therapy Treatment Note PT-OP-A Visit Information Start: 04/17/19 17:44 Freq: Status: Active Protocol: Document 05/22/19 16:46 HH (Rec: 05/22/19 17:48 HH [email or web address]) Out-Patient Physical Therapy Visit Information Visit Information Visit Type Treatment Note Visit Start Time 16:46 Visit Stop Time 17:29 Total Visit Minutes 43 Visit Number 7/8 Number of ROBOTICS SOFTWARE ENGINEER Visits 0 PT-OP-B Current Condition Start: 04/17/19 17:44 Freq: Status: Active Protocol: Document 04/17/19 16:45 HH (Rec: 04/17/19 18:30 HH [email or web address]) Current Condition History of Current Condition Onset Date 6 years ago Current Complaints Chronic low back pain, unable to lift and stand for long period of time History of Current Condition Clara is a 24 y/o female who presents to the clinic today for evaluation of her chronic LBP, referred by Dr. Goncalves. 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 She reports that her low back pain (centered) will frequently radiate into her anterior thighs. It aggravates by walking on uneven terrain and lifting, sitting or standing for extended periods. It relieved by positional changes , lying down supine and forward bending. No relief with cyclobenzaprine, tramaol, oxycodone. Pt had 2 rounds of PT during the past 6 years and she reports it was helpful but unable to sustain. Pt also had a steroid injection 2 .5 years ago and it was helpful for 2 years. Prior Treatments and Tests MRI 02/16/19 There is only a small degree of degenerative disc disease and facet osteoarthritis along the lumbosacral spine, and stable over time to the L5 -S1 level where was slight degree of interval worsening of disc height reduction, disc desiccation and left greater than right facet osteoarthritis can be seen. A definite source of nerve root impingement is not found. No disc herniation has developed. Treatment Goals Patient/Caregiver Goals 1. To be pain free for lifting , walking and sitting Current Functional Impairments (Reported) Functional Limitations- Other Unable to stand / sit in one position > 30 mins Unable to lift objects >10lbs from the floor without pain unable to amb >1/2 mile without pain PT-OP-C Subjective Start: 04/17/19 17:44 Freq: Status: Active Protocol: Document 05/22/19 16:46 HH (Rec: 05/22/19 17:48 HH [email or web address]) OP-PT Subjective Patient Comments Patient Comments I do notice i could stand longer by doing pelvic tilt but the past was not feeling too good after walking a lot during tuesday. PT-OP-F Manual Assessment Start: 04/17/19 17:44 Freq: Status: Active Protocol: Document 04/17/19 16:45 HH (Rec: 04/17/19 18:30 HH [email or web address]) Manual Assessments Soft Tissue Assessment Soft Tissue Mobility Assessment tenderness to pressure on lumbar paraspinals Joint Mobility Assessment Joint Mobility Assessment hypomobility for extension at L1-L4 and T1-T8 PT-OP-J Posture/Palpation/Skin Start: 04/17/19 17:44 Freq: Status: Active Protocol: Document 04/17/19 16:45 HH (Rec: 04/17/19 18:30 HH [email or web address]) Posture Evaluation Position Standing Evaluation View Lateral Head/C-Spine Posture Forward Head T-Spine Posture Increased Kyphosis L-Spine Posture Increased Lordosis Shoulder Posture (L) Rounded,(R) Rounded Pelvis Posture Anteriorly Tilted Knee Posture (L) Genu Recurvatum,(R) Genu Recurvatum Ankle/Foot Posture (L) Plantarflexed,(R) Plantarflexed PT-OP-K Range of Motion Start: 04/17/19 17:44 Freq: Status: Active Protocol: Document 04/17/19 16:45 HH (Rec: 04/17/19 18:30 HH [email or web address]) Lumbar Spine Range of Motion Lumbar Spine Active Percentage Testing Position Standing Comments pt is able to touch the floor with good segmental flexion mobility extension angulation noted at L5-S1 during trunk extension( pt's hand pointed ceiling only ) PT-OP-L Special Tests Start: 04/17/19 17:44 Freq: Status: Active Protocol: Document 04/17/19 16:45 HH (Rec: 04/17/19 18:30 HH [email or web address]) Special Tests Lumbar Spine Special Tests Straight Leg Raise Test Results +ve B Comments poor engagement of abdominals and exaccerbation LBP Standing Flexion Test Results -ve Comments -ve for scoliosis Prone Instability Test Test Results +VE B Comments decreased pain with unilateral hip extension facet joint Test Results +VE B Comments pain reproduced during extension PT-OP-M Strength Start: 04/17/19 17:44 Freq: Status: Active Protocol: Document 04/17/19 16:45 (Rec: 04/17/19 18:30 HH [email or web address]) Hip Strength Hip Manual Muscle Testing Right Flexion (L2) 5 Normal Extension (S1) 5 Normal Abduction 5 Normal Adduction 5 Normal External Rotation 5 Normal Internal Rotation 5 Normal Left Flexion (L2) 5 Normal Extension (S1) 4+ Good+ Abduction 4 Good Adduction 4+ Good+ External Rotation 4+ Good+ Internal Rotation 4+ Good+ Knee Strength Knee Manual Muscle Testing Right Flexion (S2) 5 Normal Extension (L3) 5 Normal Left Flexion (S2) 4+ Good+ Extension (L3) 4+ Good+ PT-OP-Q Treatments Start: 04/17/19 17:44 Freq: Status: Active Protocol: Document 05/22/19 16:46 (Rec: 05/22/19 17:48 [email or web address]) Therapeutic Exercises Supine Exercises hip certified home health aide Side bilateral Equipment Used yellow brand Reps/Minutes 12 x2 SLR Supine Exercise Name alternate Side bilateral Reps/Minutes 5 x 3 Comments cues on abd control Prone Exercises plank Prone Exercise Name incline prone on elbows. Side bilateral Reps/Minutes 10 secs holdx5 B hip ext Prone Exercise Name prone on table and legs off table Side bilateral Reps/Minutes 5 x 2 Comments UE support on edge on table hip ext Prone Exercise Name birddog position on elbows Side bilateral Reps/Minutes 8 x 4 Comments cues on prevent trunk rot Standing Exercises RDL Standing Exercise Name on floor and blue mat Side bilateral Reps/Minutes 10 mins Comments noticed excessive ankle strategy standing hip hinge Side bilateral Reps/Minutes 5 mins Comments cues on hip flexion with neutral spine hip hike Side bilateral Reps/Minutes 8 x2 PT-OP-T Assessment and Plan Start: 04/17/19 17:44 Freq: Status: Active Protocol: Document 05/22/19 16:46 (Rec: 05/22/19 17:48 HH [email or web address]) Physical Therapy Assessment Goals lifting Impairment unable to lift >10 lbs without LBP Short Term Goal (STG) Pt will be able to pickle cutter object >15 lbs from the floor x 10 times without increase of LBP STG Duration 4 weeks Materials Recycler Goal (LTG) Pt will be able to pickle cutter object >20 lbs from the floor x 10 times without increase of LBP (less than 2/10) LTG Duration 8 weeks walking Impairment unable to tolerate >0.5 mile without pain Short Term Goal (STG) Pt will be able to walk stand/ sit 1mile daily with LBP no more than 3/10 STG Duration 4 weeks Jail Goal (LTG) Pt will be able to walk 2 miles 3-4x/week with LBP no more than 2/10 LTG Duration 8 weeks standing/ sitting Impairment unable to stand/ sit at one position >30 mins Short Term Goal (STG) Pt will be able to tolerate stand/ sit >45 mins with LBP no more than 3/10 STG Duration 4 weeks Jail Goal (LTG) Pt will be able to tolerate stand/ sit >60 mins with LBP no more than 2/10 in order to tolerate for work/ driving LTG Duration 8 weeks Oswestry LbP Impairment Pt scores 40 on Oswestry LBP Short Term Goal (STG) Pt will score < 30 (20-39% impairment) on [facility] LBP questionnaire to improve her quality of life STG Duration 4 weeks Jail Goal (LTG) Pt will score < 20 (1-19% impairment) on [employer] LBP questionnaire to improve her quality of life LTG Duration 8 weeks Assessment Summary Assessment Tx focused overall trunk stability and hip strengthening. Added single leg balancing ex to challenge trunk stability. 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 R glute activation ex. hip stability ex hip hinge and trunk ext strengthening
--- NOTE | 2019-05-25 16:15 | PT.OTN ---
Current Diagnoses Other chronic pain (05/25/19) Spondylosis without myelopathy or radiculopathy, lumbosacral region (05/25/19) Other intervertebral disc degeneration, lumbar region (05/25/19) Low back pain (05/25/19) Physical Therapy Treatment Note PT-OP-A Visit Information Start: 04/17/19 17:44 Freq: Status: Active Protocol: Document 05/25/19 15:20 DCW (Rec: 05/25/19 16:15 DCW [id number]) Out-Patient Physical Therapy Visit Information Visit Information Visit Type Treatment Note Visit Start Time 15:20 Visit Stop Time 16:00 Total Visit Minutes 40 Visit Number 8/8 Number of CREDIT RISK MODELER Visits 0 PT-OP-B Current Condition Start: 04/17/19 17:44 Freq: Status: Active Protocol: Document 04/17/19 16:45 HH (Rec: 04/17/19 18:30 HH [email or web address]) Current Condition History of Current Condition Onset Date 6 years ago Current Complaints Chronic low back pain, unable to lift and stand for long period of time History of Current Condition Clara is a 24 y/o female who presents to the clinic today for evaluation of her chronic LBP, referred by Dr. Goncalves. 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 She reports that her low back pain (centered) will frequently radiate into her anterior thighs. It aggravates by walking on uneven terrain and lifting, sitting or standing for extended periods. It relieved by positional changes , lying down supine and forward bending. No relief with cyclobenzaprine, tramaol, oxycodone. Pt had 2 rounds of PT during the past 6 years and she reports it was helpful but unable to sustain. Pt also had a steroid injection 2 .5 years ago and it was helpful for 2 years. Prior Treatments and Tests MRI 02/16/19 There is only a small degree of degenerative disc disease and facet osteoarthritis along the lumbosacral spine, and stable over time to the L5 -S1 level where was slight degree of interval worsening of disc height reduction, disc desiccation and left greater than right facet osteoarthritis can be seen. A definite source of nerve root impingement is not found. No disc herniation has developed. Treatment Goals Patient/Caregiver Goals 1. To be pain free for lifting , walking and sitting Current Functional Impairments (Reported) Functional Limitations- Other Unable to stand / sit in one position > 30 mins Unable to lift objects >10lbs from the floor without pain unable to amb >1/2 mile without pain PT-OP-C Subjective Start: 04/17/19 17:44 Freq: Status: Active Protocol: Document 05/25/19 15:20 DCW (Rec: 05/25/19 16:15 DCW [id number]) OP-PT Subjective Patient Comments Patient Comments I've been feeling better. I' ve been taking Celebrex, and I really feel like that helps a lot. PT-OP-F Manual Assessment Start: 04/17/19 17:44 Freq: Status: Active Protocol: Document 04/17/19 16:45 HH (Rec: 04/17/19 18:30 HH [email or web address]) Manual Assessments Soft Tissue Assessment Soft Tissue Mobility Assessment tenderness to pressure on lumbar paraspinals Joint Mobility Assessment Joint Mobility Assessment hypomobility for extension at L1-L4 and T1-T8 PT-OP-J Posture/Palpation/Skin Start: 04/17/19 17:44 Freq: Status: Active Protocol: Document 04/17/19 16:45 HH (Rec: 04/17/19 18:30 HH [email or web address]) Posture Evaluation Position Standing Evaluation View Lateral Head/C-Spine Posture Forward Head T-Spine Posture Increased Kyphosis L-Spine Posture Increased Lordosis Shoulder Posture (L) Rounded,(R) Rounded Pelvis Posture Anteriorly Tilted Knee Posture (L) Genu Recurvatum,(R) Genu Recurvatum Ankle/Foot Posture (L) Plantarflexed,(R) Plantarflexed PT-OP-K Range of Motion Start: 04/17/19 17:44 Freq: Status: Active Protocol: Document 04/17/19 16:45 HH (Rec: 04/17/19 18:30 HH [email or web address]) Lumbar Spine Range of Motion Lumbar Spine Active Percentage Testing Position Standing Comments pt is able to touch the floor with good segmental flexion mobility extension angulation noted at L5-S1 during trunk extension( pt's hand pointed ceiling only ) PT-OP-L Special Tests Start: 04/17/19 17:44 Freq: Status: Active Protocol: Document 04/17/19 16:45 HH (Rec: 04/17/19 18:30 HH [email or web address]) Special Tests Lumbar Spine Special Tests Straight Leg Raise Test Results +ve B Comments poor engagement of abdominals and exaccerbation LBP Standing Flexion Test Results -ve Comments -ve for scoliosis Prone Instability Test Test Results +VE B Comments decreased pain with unilateral hip extension facet joint Test Results +VE B Comments pain reproduced during extension PT-OP-M Strength Start: 04/17/19 17:44 Freq: Status: Active Protocol: Document 04/17/19 16:45 HH (Rec: 04/17/19 18:30 HH [email or web address]) Hip Strength Hip Manual Muscle Testing Right Flexion (L2) 5 Normal Extension (S1) 5 Normal Abduction 5 Normal Adduction 5 Normal External Rotation 5 Normal Internal Rotation 5 Normal Left Flexion (L2) 5 Normal Extension (S1) 4+ Good+ Abduction 4 Good Adduction 4+ Good+ External Rotation 4+ Good+ Internal Rotation 4+ Good+ Knee Strength Knee Manual Muscle Testing Right Flexion (S2) 5 Normal Extension (L3) 5 Normal Left Flexion (S2) 4+ Good+ Extension (L3) 4+ Good+ PT-OP-Q Treatments Start: 04/17/19 17:44 Freq: Status: Active Protocol: Document 05/25/19 15:20 DCW (Rec: 05/25/19 16:15 DCW [id number]) Therapeutic Exercises Prone Exercises plank Prone Exercise Name incline prone on elbows. Side bilateral Reps/Minutes 10 secs holdx5 hip ext Prone Exercise Name birddog position on elbows Side bilateral Reps/Minutes 8 x 4 Comments cues on prevent trunk rot Sidelying Exercises Triple threat Sidelying Exercise Name Triple threat/6-way clamshell Side bilateral hip ab Side bilateral Reps/Minutes 6 x2 Comments difficulty for eccentric control Standing Exercises RDL Standing Exercise Name on floor and blue mat Side bilateral Reps/Minutes 10 mins Comments noticed excessive ankle strategy hip hike Side bilateral Reps/Minutes 8 x2 Manual Therapy Treatment Soft Tissue Mobilization Psoas Body Location B Psoas Mobilization Type Sustained Pressure Intensity/Depth Deep Body Position Hooklying Manual Traction R hip distraction Body Position Supine Reps/Duration 10 mins Comments long and short axis PT-OP-T Assessment and Plan Start: 04/17/19 17:44 Freq: Status: Active Protocol: Document 05/25/19 15:20 DCW (Rec: 05/25/19 16:15 DCW [id number]) Physical Therapy Assessment Impairments Impairments Activity Tolerance,Functional Activities,Functional Mobility ,Gait,Pain,Posture,ROM,Soft Tissue Mobility,Strength Goals lifting Impairment unable to lift >10 lbs without LBP Short Term Goal (STG) Pt will be able to pickling grader object >15 lbs from the floor x 10 times without increase of LBP STG Duration 4 weeks Snf Goal (LTG) Pt will be able to pickling grader object >20 lbs from the floor x 10 times without increase of LBP (less than 2/10) LTG Duration 8 weeks walking Impairment unable to tolerate >0.5 mile without pain Short Term Goal (STG) Pt will be able to walk stand/ sit 1mile daily with LBP no more than 3/10 STG Duration 4 weeks Snf Goal (LTG) Pt will be able to walk 2 miles 3-4x/week with LBP no more than 2/10 LTG Duration 8 weeks standing/ sitting Impairment unable to stand/ sit at one position >30 mins Short Term Goal (STG) Pt will be able to tolerate stand/ sit >45 mins with LBP no more than 3/10 STG Duration 4 weeks Snf Goal (LTG) Pt will be able to tolerate stand/ sit >60 mins with LBP no more than 2/10 in order to tolerate for work/ driving LTG Duration 8 weeks Oswestry LbP Impairment Pt scores 40 on Oswestry LBP Short Term Goal (STG) Pt will score < 30 (20-39% impairment) on [employer] LBP questionnaire to improve her quality of life STG Duration 4 weeks Bow Tacker Goal (LTG) Pt will score < 20 (1-19% impairment) on [employer] LBP questionnaire to improve her quality of life LTG Duration 8 weeks Assessment Summary Assessment Pt tolerated treatment well today, does display increased tone throughout hips into legs . Showed improvement with SLS activities. Physical Therapy Plan Frequency and Duration Frequency of Treatment 2x/Week Duration of Treatment 8 weeks Plan of Care Start Date 04/17/19 Plan of Care End Date 06/16/19 Next Visit Focus/Plan Next Note Type Treatment Note Next Visit Plan T/S extension lumbar stability ex. R glute activation ex. hip stability ex hip hinge and trunk ext strengthening
--- NOTE | 2019-12-11 11:17 | PT.OPDS ---
Current Diagnoses Other chronic pain (05/25/19) Spondylosis without myelopathy or radiculopathy, lumbosacral region (05/25/19) Other intervertebral disc degeneration, lumbar region (05/25/19) Low back pain (05/25/19) Visit Care Team Role Provider Type Krissy Goncalves DO Primary Care Provider Physician Specialty: Family Practice Address: [address] [place] [address], [place] [address], [place], [address] Email: [email or web address] MATT Morris Attending Provider Non-Staff Specialty: Pain Management Address: [address] [place] [address], [place], [address] Email: [email or web address] Visit Number Visit Number 10/26 Discharge Summary PT-OP-T Assessment and Plan Start: 04/17/19 17:44 Freq: Status: Active Protocol: Document 12/11/19 11:16 (Rec: 12/11/19 11:17 [email or web address]) Physical Therapy Plan Discharge Physical Therapy Discharge Reasons No Longer Attending PT Discharge Comments Patient did not return call after clinic re-opening>30+ days. DC from PT today
== END 2020-01-08 10:49 ==
LOC: PHYS 15:15
PROVIDERS: PCP Family Medicine; Visit Provider Registered Nurse
DX: M47.817 Spondylosis without myelopathy or radiculopathy, lumbosacral region (principal); M54.5 Low back pain; G89.29 Other chronic pain; M51.36 Other intervertebral disc degeneration, lumbar region
CPT/HCPCS: 97110; 97140; 97161; 97535

== ENCOUNTER → 2019-07-30 16:26 | Outpatient (CLI) | payer OTHER, MEDICAID, SELFPAY ==
--- NOTE | 2019-07-30 16:29 | DI.RAD.S_ITS ---
PROCEDURE: XR LUMBAR SPINE MIN 4V INDICATIONS: Chronic axial low back pain TECHNIQUE: 5 views of the lumbar spine were acquired. COMPARISON: [facility], , L-SPINE 2-3 VIEWS, 10/03/2014, 17:29. FINDINGS: Bones: 5 nonrib-bearing vertebrae are present. There is normal bony alignment. No vertebral body compression fractures. No suspicious bony lesions. Soft tissues: Overlying bowel gas pattern is normal. No suspicious soft tissue calcifications. Oblique images: No pars defects. IMPRESSION: Normal for age, source of chronic back pain is not identified. Dictated by: Tru Katz M.D. on 07/31/2019 at 8:43 Approved by: Tru Katz M.D. on 07/31/2019 at 8:44
== END ==
PROVIDERS: PCP Family Medicine; Referring Provider Physical Medicine & Rehabilitation; Visit Provider Physical Medicine & Rehabilitation
DX: M54.5 Low back pain (principal); G89.29 Other chronic pain; M47.816 Spondylosis without myelopathy or radiculopathy, lumbar region; M51.36 Other intervertebral disc degeneration, lumbar region
CPT/HCPCS: 72110; 99213

== ENCOUNTER → 2019-09-17 08:25 | Outpatient (CLI) | payer OTHER, MEDICAID, SELFPAY ==
[2019-09-18 08:30] LABS: COVID19 Sendout Not Detected (Not Detect)
== END ==
PROVIDERS: PCP Family Medicine; Visit Provider Physician Assistant
DX: Z01.812 Encounter for preprocedural laboratory examination (principal)
CPT/HCPCS: 87635

== ENCOUNTER 2019-09-20 10:36 | Outpatient (CLI) | payer OTHER, MEDICAID, SELFPAY ==
[2019-09-20] VITALS (13 sets, daily range): BP systolic 88–162; BP diastolic 37–102; PULSE 93–131; RESP 14–23; O2SAT 95–100
--- NOTE | 2019-09-20 10:38 | DI.RAD.S_ITS ---
PROCEDURE: PAIN L/S FACET INJ/BLK 1ST JALEEL COMPARISON: None. INDICATIONS: SPONDYLOSIS FINDINGS: Fluoroscopic spot filming was performed to verify placement of spinal needles at the L4, L5, S1 level(s), as labeled on the films. Appropriate location(s) of the needle tip(s) was confirmed by injection of iodinated contrast. Dictated by: Bonilla Ibrahim M.D. on 09/20/2019 at 13:54 Approved by: Bonilla Ibrahim M.D. on 09/20/2019 at 13:55
[2019-09-20] MEDS: MIDAZOLAM 5 MG/5 ML VIAL IV (11:36)
[2019-09-20] MEDS: LIDOCAINE 1% 20 ML 10 ML INJ (11:42)
[2019-09-20] MEDS: IOPAMIDOL 15 ML VIAL 3 ML INJ (11:42)
[2019-09-20] MEDS: BUPIVACAINE 0.5% (PF) VIAL 5 ML INJ (11:42)
--- NOTE | 2019-09-20 12:18 | PM.PROC.1 ---
Procedures Date/Time Date of procedure: 09/20/19 Time of procedure: 12:18 General Procedure description: Procedure description: 1. FACET ARTHROPATHY PROCEDURES: 1. BILATERAL- L4, L5 and S1 DIAGNOSTIC MB BLOCKS with LA Anesthetic PHYSICIAN: Justice Shafer DO INDICATIONS Clara is referred by for treatment of Bilateral Axial LBP. DESCRIPTION OF PROCEDURE Fluoroscopically guided, contrast-controlled bilateral L4, L5 and S1 medial branch blocks with 0.5cc of 0.5% Marcaine. Following review of allergy and review of potential side effects and complications, including, but not necessarily limited to, infection, allergic reaction, local tissue breakdown, nerve injury, paralysis, stroke and possible , the patient indicated that the patient understood and agreed to proceed. An informed consent document was signed by the patient, witnessed by a nurse, and placed in the patient's chart. After review of previous anaesthesic history and IV conscious sedation the patient was deemed safe to proceed with todays procedure with IV conscious sedation as ASA class II designation. Safety time-out was performed to confirm patient ID, procedure to be performed and site of procedure. IV sedation was accomplished with a combination of 10mg of Versed was administered by the RN after DO order, titrated to patient comfort during the course of the procedure while the patient remained responsive to all verbal commands In the prone position, following sterile prep and drape of the lumbar region, the right L4, L5 and S1 anatomical location of the medial branch of the dorsal ramus was identified fluoroscopically. Subsequently an anesthetic skin wheal using 1% lidocaine solution was initiated at each of the anatomical spots. Subsequently then a 22-gauge 3.5-inch spinal needle was atraumatically introduced and advanced under fluoroscopic guidance at each of the corresponding sites at the right L4, L5 and S1 MB. After negative aspiration, 0.2cc of Isovue 200 was injected, confirming placement without vascular or intrathecal uptake. Subsequently then 0.5cc of 0.5% Marcaine solution was injected at each of the corresponding sites at the right L4, L5 and S1 medial branch locations. The identical procedure was replicated on the left. The patient tolerated the procedure well without signs or symptoms of complications prior to transfer to the recovery area continued monitoring without incident. Post-procedure, the patient was monitored initiating provocative activities to measure the amount of relief from block of the facetogenic pain. The patient reported a VAS of 7 prior to the procedure and a post-procedure VAS of 1. It has been a pleasure to assist in the diagnostic and therapeutic care of your patient. Total Fluoroscopy Time: 11 seconds Total Conscious Sedation Time: 24min POST OP INSTRUCTIONS The patient was provided with a Pain Log to complete over the next several hours and subsequent days prior to the patient's follow up with the ordering physician. If the patient has comprehensive advisor relief to the solution applied, then they may be a candidate for medial branch rhizotomy. The patient is aware, was provided, once again, with a Pain Log and will follow up with the referring physician for review and clinical correlation Justice Shafer DO
--- NOTE | 2019-09-20 12:38 | PC.NURSE ---
assumed care from Lotus Rodriguez RN. Pt tolerating oral intake of coffee and cookies
--- NOTE | 2019-09-20 12:43 | PC.NURSE ---
1215 -Pt arrived from DI via w/c accompanied by LAMAR Almanzar. Pt transferred to chair without problems, given coffee and cookies, denies pain, mother at side, will assume care
== END 2019-09-20 13:13 | disposition home or self-care (01) ==
LOC: RAD 10:37
PROVIDERS: PCP Family Medicine; Referring Provider Physical Medicine & Rehabilitation; Visit Provider Physical Medicine & Rehabilitation
DX: M47.816 Spondylosis without myelopathy or radiculopathy, lumbar region (principal); M47.817 Spondylosis without myelopathy or radiculopathy, lumbosacral region; M54.5 Low back pain
CPT/HCPCS: 64493; 64494; 99152; J2250

== ENCOUNTER 2019-12-28 08:03 | Emergency (ER) | payer OTHER, MEDICAID, SELFPAY ==
[2019-12-28 08:20] VITALS: BP 140/90; PULSE 73; RESP 18; O2SAT 99; BMI 21.4
--- NOTE | 2019-12-28 08:29 | ED_ITS ---
HPI - Back Pain/Injury General Chief Complaint: Back Pain/Injury Stated Complaint: right lower side back pain Time Seen by Provider: 12/28/19 08:17 Source: patient Mode of arrival: Ambulatory Limitations: no limitations History of Present Illness HPI Narrative: 24-year-old female here for evaluation of right-sided flank pain. States the symptoms have been going on for the past couple days. She states that the end of last week she had which he thought was a urinary tract infection however was never seen an never treated in the symptoms seemed to resolve. She is currently on her menstrual cycle. She states the pain is on her right side. Not worse with palpation or movement. Does not change with urination. Has had no change in her bowel habits. No fevers. Has never had a kidney stone the past. States the pain does come and go however there is always a baseline discomfort in the area. When the pain comes on and lasts for several minutes and then seems to improve. Has had some nausea no vomiting. Related Data Home Medications Medication Instructions Recorded Confirmed buprenorphine-naloxone [Suboxone] 1 riley SUBLINGUAL QDAY #0 07/06/17 10/26/19 Previous Rx's Medication Instructions Recorded albuterol sulfate 90 mcg/actuation 90 mcg INHALATION Q4HP PRN #1 01/15/19 breath activated powder inhaler inhalation promethazine 12.5 mg tablet 12.5 mg PO Q6H PRN #30 tab 06/19/19 propranolol 20 mg tablet 20 mg PO BID #60 tab 06/19/19 pantoprazole 40 mg tablet,delayed 40 mg PO QDAY #90 ect 06/25/19 release celecoxib 200 mg capsule 200 mg PO DAILY #90 cap 07/30/19 diclofenac sodium 3 % topical gel 1 applic TOP BID 60 Days #100 gram 07/30/19 valacyclovir 1 gram tablet 1,000 mg PO Q DAY #30 tab 08/30/19 cetirizine 10 mg tablet 10 mg PO DAILY #90 tab 09/17/19 drospirenone 3 mg-ethinyl 1 tab PO QDAY #84 tab 10/08/19 estradiol 0.03 mg tablet cyclobenzaprine 10 mg tablet 10 mg PO BID PRN #90 tab 10/23/19 methylphenidate HCl 20 mg tablet 20 mg PO TID #90 tab 11/30/19 ondansetron 4 mg PO Q6H PRN #10 tab 12/28/19 Allergies Allergy/AdvReac Type Severity Reaction Status Date / Time amoxicillin [From AUGMENTIN] Allergy Intermediate Verified 12/28/19 08:20 clavulanic acid Allergy Intermediate Verified 12/28/19 08:20 [From AUGMENTIN] Penicillins [PENICILLINS] Allergy Unknown Verified 12/28/19 08:20 Review of Systems Constitutional Constitutional: Denies headache(s) ENT Ears, Nose, Mouth, and Throat: Denies headache(s) Cardiovascular Cardiovascular: Denies chest pain and Denies dyspnea Respiratory Respiratory: Denies dyspnea Gastrointestinal Gastrointestinal: Denies abdominal pain, Denies change in bowel habits, Denies diarrhea, Reports nausea and Denies vomiting Genitourinary Comments: Right-sided flank pain Musculoskeletal Musculoskeletal: Reports back pain (Right-sided flank) and Denies myalgias Integumentary/Breasts Skin/Breast: Denies rash Neurologic Neurologic: Denies behavioral changes and Denies headache(s) Psychiatric Psychiatric: Denies behavioral changes Hematologic/Lymphatic Hematologic/Lymphatic: Denies easy bleeding and Denies easy bruising Patient History Medical History Allergic to dogs (Acute) Asthma (Chronic) Coccydynia (Acute) Degeneration of intervertebral disc at L5-S1 level (Acute) Drug use disorder (08/25/16) Facet arthropathy, lumbar (Acute) Facet arthropathy, lumbosacral (Chronic) H pylori ulcer (Chronic) Migraine with aura (Acute) Surgical History H/O nasal septoplasty (Acute) Family History Brother Scoliosis Mother Bulging discs Social History Smoking Status: Former smoker Smoking Status: Former smoker alcohol intake frequency: 0-2 drinks per day Substance Use Type: does not use Exam Initial Vital Signs Initial Vital Signs: Vital Signs Pulse Rate 73 12/28/19 08:20 Respiratory Rate 18 12/28/19 08:20 Blood Pressure 140/90 12/28/19 08:20 Pulse Oximetry 99 12/28/19 08:20 Const General: cooperative and comfortable HENMT Head: normal to inspection and normocephalic Resp Effort & Inspection: normal respiratory effort Auscultation: clear to auscultation bilaterally Cardio Rate: regular rate Rhythm: regular rhythm GI Inspection: non-distended Palpation: soft, No firm and No tender Back/Spine/Pelvis Back: No CVA tenderness Thoracic/Lumbar Spine: No paraspinal tenderness, No thoracic spinal tenderness and No lumbar spinal tenderness Skin Lesions: no lesions Rashes: no rashes Neuro General: patient alert and patient awake Cognition: normal cognition Speech: speech normal Extrem General: normal to inspection and capillary refill normal Psych Appearance: grossly normal and well kempt Course Orders Ordered: ED Orders 12/28/19 08:20 Urine Microscopic Stat 12/28/19 08:28 CT kidney ureter bladder (KUB) Stat Discontinued Medications Ondansetron HCl (Zofran Odt) 4 mg PO NOW ONE Stop: 12/28/19 08:28 Last Admin: 12/28/19 08:36 Dose: 4 mg Documented by: NACHO Vital Signs Vital signs: Vital Signs - 8 hr 12/28/19 08:20 12/28/19 08:59 Temperature 98.0 F Pulse Rate 73 Respiratory Rate 18 Blood Pressure 140/90 Pulse Oximetry 99 MDM - Back Pain/Injury Lab Data Attestation: I reviewed the patient's lab results. Labs: Lab Results 12/28/19 Range/Units 08:20 Urine RBC 10-30/hpf H (0-5/HPF) Urine WBC 0-1/hpf (0-5/HPF) Ur Squamous Epith Cells 0-1 /hpf (0-5/HPF) Urine Bacteria None seen (None) Urine Mucus 2+ H (Negative) Ur Culture Indicated? Cult not indicated Point of Care Testing Test Results Negative Urine Dip Bedside Urine Glucose Negative Bedside Urine Bilirubin - Negative Bedside Urine Ketone - Negative Urine Specific [place] 1.030 Bedside Urine Occult Blood +++ Bedside Urine pH 6.0 Bedside Urine Protein - Negative Bedside Urine Urobilinogen - Negative Bedside Urine Nitrite - Negative Bedside Urine Leukocytes - Negative Esterase Imaging Data CT scan - abdomen/pelvis: Radiologist's Impression: [address] [address] [address] Scan Report Signed Patient: Clara Mahmood EMR#: [id number] : 1995Acct:[id number] Age/Sex: 24 / FDate of Service: 12/28/19 Loc: ED Accession Number: [id number] Procedure: CT kidney ureter bladder (KUB) Ordering Provider: Doug Forman D.O. PROCEDURE: CT KIDNEY URETER BLADDER (KUB) INDICATIONS: Colicky right-sided pain eval for stone TECHNIQUE: Noncontrast 5 mm thick sections acquired from the diaphragms to the symphysis. 5 mm thick coronal and sagittal reformats were then performed. For radiation dose reduction, the following was used: automated exposure control, adjustment of mA and/or kV according to patient size. COMPARISON: None. FINDINGS: Image quality: Excellent. Lung bases: Lung bases are clear. Heart size is normal. Urinary system: 1 mm calculus most likely involving the proximal right ureter. There is mild right hydronephrosis. Punctate calculus seen in the right kidney on image 19/2. Few punctate areas of increased attenuation in the left kidney for example image 25/2 which could reflect tiny calculus. However no is artifact is a consideration at this size. No bladder calculi seen. Other solid organs: Liver is normal in size. Gallbladder negative . Pancreas is normal in contours. Spleen is normal in size. No adrenal nodules. Peritoneum and bowel: Unenhanced bowel loops demonstrate normal wall thickness and caliber. No free fluid or air. Appendix is not clearly identified however no suspicious pericecal inflammatory changes are seen. Nodes and vessels: No retroperitoneal or mesenteric adenopathy by size criteria. Aorta and inferior vena cava are normal in caliber. Abdominal wall: No ventral hernias. Pelvis: No free pelvic fluid. No inguinal hernias or adenopathy. Incidentally noted tampon Bones: No suspicious bony lesions. No vertebral body compression fractures. IMPRESSION: Mildly obstructive proximal right ureteral calculus. Additional punctate bilateral renal calculi. Dictated by: Bonilla Ibrahim M.D. on 12/28/2019 at 9:21 Approved by: Bonilla Ibrahim M.D. on 12/28/2019 at 9:43 MDM Narrative Medical decision making narrative: CT scan shows right-sided proximal ureteral stone. No signs of infection. Patient is on Suboxone so would like to avoid any opioid pain medication. Had a discussion with her regarding the symptoms. We discussed return precautions and follow-up instructions. She expressed understanding and agreement. Discharge Plan Departure Patient Disposition: Home Clinical Impression: Renal colic on right side Instructions: Kidney Stones -- Adult Activity Restrictions/Additional Instructions: Recommend that you continue with the Celebrex. You can also use the nausea medication sure given prescription for today as directed. Contact your primary provider for follow-up. Return to the emergency department for any fevers, inability to tolerate oral intake, inability to urinate and or new worsening symptoms Prescriptions: New ondansetron 4 mg tablet,disintegrating 4 mg PO Q6H PRN (Reason: nausea and vomiting) Qty: 10 RF: 0 No Action buprenorphine-naloxone [Suboxone] 4 MG/1 MG film 1 riley Sublingual QDAY Qty: 0 RF: 0 propranolol 20 mg tablet 20 mg PO BID Qty: 60 RF: 1 promethazine 12.5 mg tablet 12.5 mg PO Q6H PRN (Reason: headache) Qty: 30 RF: 1 pantoprazole 40 mg tablet,delayed release (DR/EC) 40 mg PO QDAY Qty: 90 RF: 3 valacyclovir [Valtrex] 1 gram tablet 1,000 mg PO Q DAY Qty: 30 RF: 1 drospirenone-ethinyl estradiol [Shila (28)] 3-0.03 mg tablet 1 tab PO QDAY Qty: 84 RF: 3 cyclobenzaprine 10 mg tablet 10 mg PO BID PRN (Reason: muscle spasm) Qty: 90 RF: 2 methylphenidate HCl 20 mg tablet 20 mg PO TID Qty: 90 RF: 0 ProAir RespiClick 90 mcg/actuation aerosol powdr breath activated 90 mcg inhalation Q4HP PRN (Reason: shortness of breath or wheezing) Qty: 1 RF: 5 cetirizine 10 mg tablet 10 mg PO DAILY Qty: 90 RF: 3 celecoxib [Celebrex] 200 mg capsule 200 mg PO DAILY Qty: 90 RF: 2 diclofenac sodium 3 % gel 1 applic TOP BID 60 Days Qty: 100 RF: 2 Referrals: Krissy Goncalves DO [Primary Care Provider] -
[2019-12-28 08:31] LABS: Bacteria Urine None Seen
[2019-12-28] MEDS: ONDANSETRON 4 MG ODT PO (08:36)
[2019-12-28 08:37] LABS: Culture Indicated Urine Cult Not Indicated; Mucus Urine 2+ (Negative); RBC Urine 10-30/HPF (0-5/HPF); Squamous Epithelial Cell Urine 0-1 /HPF (0-5/HPF); WBC Urine 0-1/HPF (0-5/HPF)
[2019-12-28 08:59] VITALS: TEMP 36.7
[2019-12-28 10:07] VITALS: BP 135/73; PULSE 80; RESP 18; O2SAT 100
== END 2019-12-28 10:08 | disposition home or self-care (01) ==
PROVIDERS: Emergency Provider Emergency Medicine; PCP Family Medicine
DX: N20.0 Calculus of kidney (principal); R11.0 Nausea
CPT/HCPCS: 74176; 81003; 81015; 81025; 99283; 99284

== ENCOUNTER → 2020-01-23 12:12 | Outpatient (CLI) | payer OTHER, MEDICAID, SELFPAY ==
--- NOTE | 2020-01-23 12:14 | DI.US.S_ITS ---
PROCEDURE: US RENAL COMPLETE INDICATIONS: flank pain TECHNIQUE: Real-time scanning was performed of the kidneys and bladder, with image documentation. COMPARISON: None. FINDINGS: Kidneys: Kidneys are normal in size. Right kidney measures 12.0 cm long; left kidney measures 11.8 cm long. Right renal cortical thickness is 1.2 cm; left renal cortical thickness is 1.4 cm. Renal cortical echotexture is normal. No hydronephrosis or nephrolithiasis. No suspicious solid mass lesions. Bladder: Pre-void bladder volume is 371 mL. Post-void residual is 26 mL. Pre-void images demonstrate no intraluminal masses or stones. On pre-void images, bilateral ureteral jets are noted with color Doppler interrogation. (Of note, ureteral jets may not be detectable in up to 25% of cases due to insufficient differences in specific gravity between ureteral and bladder urine). Miscellaneous: No free pelvic fluid. IMPRESSION: Normal sonographic evaluation of the bilateral kidney without sonographic evidence for nephrolithiasis or hydronephrosis. Dictated by: Landon Estevez M.D. on 01/23/2020 at 11:45 Approved by: Landon Estevez M.D. on 01/23/2020 at 11:47
== END ==
PROVIDERS: PCP Family Medicine; Referring Provider Family Medicine; Visit Provider Family Medicine
DX: N23 Unspecified renal colic (principal)
CPT/HCPCS: 76770

== ENCOUNTER 2020-01-31 19:48 | Emergency (ER) | payer OTHER, MEDICAID, SELFPAY ==
[2020-01-31 19:55] VITALS: BP 110/73; PULSE 69; RESP 14; TEMP 36.8; O2SAT 100; BMI 19.9
--- NOTE | 2020-01-31 20:46 | ED.ABDPAIN ---
HPI - Abdominal Pain General Chief Complaint: Urogenital-Female Stated Complaint: kidney pain Time Seen by Provider: 01/31/20 20:20 Source: patient Mode of arrival: Ambulatory Limitations: no limitations History of Present Illness HPI narrative: 25-year-old young woman presents with 5 weeks of right flank pain that is getting worse now with low-grade fever to 100.3. She was seen initially in the CT scan was done that revealed a 1mm stone in the proximal right ureter and mild right hydronephrosis. She has been straining her urine Related Data Home Medications Medication Instructions Recorded Confirmed buprenorphine-naloxone [Suboxone] 1 riley SUBLINGUAL QDAY #0 07/06/17 01/25/20 Previous Rx's Medication Instructions Recorded albuterol sulfate 90 mcg/actuation 90 mcg INHALATION Q4HP PRN #1 01/15/19 breath activated powder inhaler inhalation promethazine 12.5 mg tablet 12.5 mg PO Q6H PRN #30 tab 06/19/19 pantoprazole 40 mg tablet,delayed 40 mg PO QDAY #90 ect 06/25/19 release celecoxib 200 mg capsule 200 mg PO DAILY #90 cap 07/30/19 diclofenac sodium 3 % topical gel 1 applic TOP BID 60 Days #100 gram 07/30/19 cetirizine 10 mg tablet 10 mg PO DAILY #90 tab 09/17/19 drospirenone 3 mg-ethinyl 1 tab PO QDAY #84 tab 10/08/19 estradiol 0.03 mg tablet cyclobenzaprine 10 mg tablet 10 mg PO BID PRN #90 tab 10/23/19 ondansetron 4 mg PO Q6H PRN #10 tab 12/28/19 propranolol 20 mg tablet 20 mg PO BID #60 tab 12/31/19 tamsulosin 0.4 mg capsule 0.4 mg PO DAILY #14 cap 01/24/20 methylphenidate HCl 20 mg tablet 20 mg PO TID #90 tab 01/25/20 valacyclovir 1 gram tablet 1,000 mg PO Q DAY #90 tab 01/25/20 Allergies Allergy/AdvReac Type Severity Reaction Status Date / Time amoxicillin [From AUGMENTIN] Allergy Intermediate Verified 01/31/20 20:05 clavulanic acid Allergy Intermediate Verified 01/31/20 20:05 [From AUGMENTIN] Penicillins [PENICILLINS] Allergy Unknown Verified 11/12/20 20:05 Review of Systems Review of Systems Narrative: Pertinent positive and negative findings as per HPI Remainder of review of systems is otherwise unremarkable for Constitutional: weakness ENT: No sore throat, neck pain, ear pain CV: Chest pain, palpitations, dyspnea on exertion Respiratory: wheeze, dyspnea GI: Nausea, vomiting, diarrhea, MS: Muscle weakness, numbness, joint swelling or warmth Patient History Medical History Allergic to dogs (Acute) Asthma (Chronic) Coccydynia (Acute) Degeneration of intervertebral disc at L5-S1 level (Acute) Drug use disorder (08/25/16) Facet arthropathy, lumbar (Acute) Facet arthropathy, lumbosacral (Chronic) H pylori ulcer (Chronic) Migraine with aura (Acute) Opioid use disorder (Acute) Surgical History H/O nasal septoplasty (Acute) Family History Brother Scoliosis Mother Bulging discs Social History Smoking Status: Former smoker Smoking Status: Former smoker alcohol intake frequency: 0-2 drinks per day Substance Use Type: does not use Exam Narrative Exam Narrative: General: Healthy appearing, in no acute distress. Able to give a complete and coherent history. Well-nourished well-developed HEENT: Moist mucous membranes, normal sclera with reactive pupils, Respiratory: Lungs are clear to auscultation, no wheezing no rales no rhonchi. Full and symmetrical air movement Cardiac: Regular rate and rhythm no murmurs no bruits Abdomen: Soft nontender good bowel tones, no flank pain to palpation or percussion Skin: Warm and dry, no rashes Neurologic: Grossly neurologically intact with no obvious asymmetries or abnormalities Extremities: No trauma, well perfused Psych: Cooperative, appropriate insight and affect Initial Vital Signs Initial Vital Signs: Vital Signs Temperature 98.2 F 01/31/20 19:55 Pulse Rate 69 01/31/20 19:55 Respiratory Rate 14 01/31/20 19:55 Blood Pressure 110/73 01/31/20 19:55 Pulse Oximetry 100 01/31/20 19:55 Course Orders Ordered: ED Orders 01/31/20 21:36 CT kidney ureter bladder (KUB) Stat 01/31/20 22:40 COVID19 Stat Discontinued Medications Buprenorphine/Naloxone (Suboxone 8/2 Mg Sl) 0.5 tab SL NOW ONE Stop: 01/31/20 20:46 Last Admin: 01/31/20 21:02 Dose: 0.5 tab Documented by: TIFFANY Vital Signs Vital signs: Vital Signs - 8 hr 01/31/20 19:55 Temperature 98.2 F Pulse Rate 69 Respiratory Rate 14 Blood Pressure 110/73 Pulse Oximetry 100 MDM - Abdominal Pain Medical Records Attestation: I reviewed the patient's medical records. Lab Data Attestation: I reviewed the patient's lab results. Labs: Lab Results 01/31/20 Range/Units 22:40 COVID-19 PCR Negative (Negative) Point of care testing: Urine Dip Bedside Urine Glucose Negative Bedside Urine Bilirubin - Negative Bedside Urine Ketone - Negative Urine Specific [place] 1.020 Bedside Urine Occult Blood - Negative Bedside Urine pH 6.0 Bedside Urine Protein - Negative Bedside Urine Urobilinogen - Negative Bedside Urine Nitrite - Negative Bedside Urine Leukocytes - Negative Esterase Imaging Data CT KUB 12/28/2019: Radiologist's Impression: FINDINGS: Image quality: Excellent. Lung bases: Lung bases are clear. Heart size is normal. Urinary system: 1 mm calculus most likely involving the proximal right ureter. There is mild right hydronephrosis. Punctate calculus seen in the right kidney on image 19/2. Few punctate areas of increased attenuation in the left kidney for example image 25/2 which could reflect tiny calculus. However no is artifact is a consideration at this size. No bladder calculi seen. Other solid organs: Liver is normal in size. Gallbladder negative . Pancreas is normal in contours. Spleen is normal in size. No adrenal nodules. Peritoneum and bowel: Unenhanced bowel loops demonstrate normal wall thickness and caliber. No free fluid or air. Appendix is not clearly identified however no suspicious pericecal inflammatory changes are seen. Nodes and vessels: No retroperitoneal or mesenteric adenopathy by size criteria. Aorta and inferior vena cava are normal in caliber. Abdominal wall: No ventral hernias. Pelvis: No free pelvic fluid. No inguinal hernias or adenopathy. Incidentally noted tampon Bones: No suspicious bony lesions. No vertebral body compression fractures. IMPRESSION: Mildly obstructive proximal right ureteral calculus. Additional punctate bilateral renal calculi. Dictated by: Bonilla Ibrahim M.D. on 12/28/2019 at 9:21 renal US 01/23/2020: Radiologist's Impression: FINDINGS: Kidneys: Kidneys are normal in size. Right kidney measures 12.0 cm long; left kidney measures 11.8 cm long. Right renal cortical thickness is 1.2 cm; left renal cortical thickness is 1.4 cm. Renal cortical echotexture is normal. No hydronephrosis or nephrolithiasis. No suspicious solid mass lesions. Bladder: Pre-void bladder volume is 371 mL. Post-void residual is 26 mL. Pre-void images demonstrate no intraluminal masses or stones. On pre-void images, bilateral ureteral jets are noted with color Doppler interrogation. (Of note, ureteral jets may not be detectable in up to 25% of cases due to insufficient differences in specific gravity between ureteral and bladder urine). Miscellaneous: No free pelvic fluid. IMPRESSION: Normal sonographic evaluation of the bilateral kidney without sonographic evidence for nephrolithiasis or hydronephrosis. Dictated by: Landon Estevez M.D. on 01/23/2020 at 11:45 CT KUB today 01/31/2020: Radiologist's Impression: FINDINGS: Image quality: Excellent. Lung bases: Lung bases are clear. Heart size is normal. Urinary system: Both kidneys are normal in size. 1 millimeter nonobstructing stone in the midpole of the right kidney. No hydronephrosis or perinephric fat stranding. Both ureters appear non-dilated throughout their expected courses. Bladder wall thickness is normal; no calcified bladder stones. Other solid organs: Liver is normal in size. Gallbladder is within normal limits. Pancreas is normal in contours. Spleen is normal in size. No adrenal nodules. Peritoneum and bowel: Unenhanced bowel loops demonstrate normal wall thickness and caliber. No free fluid or air. The appendix is normal. Nodes and vessels: No retroperitoneal or mesenteric adenopathy by size criteria. Aorta and inferior vena cava are normal in caliber. Abdominal wall: No ventral hernias. Pelvis: No free pelvic fluid. No inguinal hernias or adenopathy. Bones: No suspicious bony lesions. No vertebral body compression fractures. IMPRESSION: 1. 1 millimeter nonobstructing right renal stone. 2. No hydronephrosis. Dictated by: Radha Hurley MD, PhD on 01/31/2020 at 21:57 MDM Narrative Medical decision making narrative: 25-year-old woman with right flank pain that has been problematic for the last 5 weeks. Initially was noted to have a 1 mm proximal ureter stone with mild hydronephrosis. Follow-up ultrasound has been unremarkable but the pain is continue. Repeat CT scan today is unremarkable. Her symptoms changed to include fever and myalgias over the last 48 hours and she was concerned that she may have pyelonephritis or infection behind a kidney stone. Neither of these in fact turned out to be problematic. Urinalysis was entirely negative without blood, white cells or leukocyte esterase. COVID test was negative today. No obstructing renal stone, no hydronephrosis, no pyelonephritis, no retroperitoneal abnormalities, no intra-abdominal findings on CT scan to explain the pain she is experiencing. Will have her follow-up with her primary care physician and keep the scheduled consultation appointment with urology regarding nephrolithiasis. She is safe for home discharge Discharge Plan Departure Patient Disposition: Home Clinical Impression: Acute flank pain Discharge Date/Time: 01/31/20 23:36 Instructions: DI for Flank Pain Activity Restrictions/Additional Instructions: Thank you for coming in today Your blood work urine and CT scan were all reassuring. I do not see anything to explain the right flank pain that you are currently having. There is no urinary tract infection. I find no evidence of bacterial infection. I suspect that your low-grade fever is due to a virus. Your COVID study was negative today Please keep your appointment with Dr. Conteh to ask him your questions regarding kidney stones I hope you feel better. Prescriptions: No Action buprenorphine-naloxone [Suboxone] 4 MG/1 MG film 1 riley Sublingual QDAY Qty: 0 RF: 0 promethazine 12.5 mg tablet 12.5 mg PO Q6H PRN (Reason: headache) Qty: 30 RF: 1 pantoprazole 40 mg tablet,delayed release (DR/EC) 40 mg PO QDAY Qty: 90 RF: 3 drospirenone-ethinyl estradiol [Shila (28)] 3-0.03 mg tablet 1 tab PO QDAY Qty: 84 RF: 3 cyclobenzaprine 10 mg tablet 10 mg PO BID PRN (Reason: muscle spasm) Qty: 90 RF: 2 propranolol 20 mg tablet 20 mg PO BID Qty: 60 RF: 1 tamsulosin 0.4 mg capsule 0.4 mg PO DAILY Qty: 14 RF: 0 ProAir RespiClick 90 mcg/actuation aerosol powdr breath activated 90 mcg inhalation Q4HP PRN (Reason: shortness of breath or wheezing) Qty: 1 RF: 5 cetirizine 10 mg tablet 10 mg PO DAILY Qty: 90 RF: 3 valacyclovir [Valtrex] 1 gram tablet 1,000 mg PO Q DAY Qty: 90 RF: 3 methylphenidate HCl 20 mg tablet 20 mg PO TID Qty: 90 RF: 0 ondansetron 4 mg tablet,disintegrating 4 mg PO Q6H PRN (Reason: nausea and vomiting) Qty: 10 RF: 0 celecoxib [Celebrex] 200 mg capsule 200 mg PO DAILY Qty: 90 RF: 2 diclofenac sodium 3 % gel 1 applic TOP BID 60 Days Qty: 100 RF: 2 Referrals: Krissy Goncalves DO [Primary Care Provider] - Stand Alone Forms: School Release Note
[2020-01-31] MEDS: BUPRENORPHINE/NALOXONE 8MG/2MG 1 TAB 0.5 TAB SL (21:02)
--- NOTE | 2020-01-31 21:36 | DI.CT.S_ITS ---
PROCEDURE: CT KIDNEY URETER BLADDER (KUB) INDICATIONS: persistent right flank pain, now with fever TECHNIQUE: Noncontrast 5 mm thick sections acquired from the diaphragms to the symphysis. 5 mm thick coronal and sagittal reformats were then performed. For radiation dose reduction, the following was used: automated exposure control, adjustment of mA and/or kV according to patient size. COMPARISON: None. FINDINGS: Image quality: Excellent. Lung bases: Lung bases are clear. Heart size is normal. Urinary system: Both kidneys are normal in size. 1 millimeter nonobstructing stone in the midpole of the right kidney. No hydronephrosis or perinephric fat stranding. Both ureters appear non-dilated throughout their expected courses. Bladder wall thickness is normal; no calcified bladder stones. Other solid organs: Liver is normal in size. Gallbladder is within normal limits. Pancreas is normal in contours. Spleen is normal in size. No adrenal nodules. Peritoneum and bowel: Unenhanced bowel loops demonstrate normal wall thickness and caliber. No free fluid or air. The appendix is normal. Nodes and vessels: No retroperitoneal or mesenteric adenopathy by size criteria. Aorta and inferior vena cava are normal in caliber. Abdominal wall: No ventral hernias. Pelvis: No free pelvic fluid. No inguinal hernias or adenopathy. Bones: No suspicious bony lesions. No vertebral body compression fractures. IMPRESSION: 1. 1 millimeter nonobstructing right renal stone. 2. No hydronephrosis. Dictated by: Radha Hurley MD, PhD on 01/31/2020 at 21:57 Approved by: Radha Hurley MD, PhD on 01/31/2020 at 22:01
[2020-01-31 23:04] LABS: COVID19 -Nasal RAPID Negative (Negative)
[2020-01-31 23:36] VITALS: BP 105/55; PULSE 72; RESP 16; O2SAT 100
== END 2020-01-31 23:36 | disposition home or self-care (01) ==
PROVIDERS: Emergency Provider Emergency Medicine; PCP Family Medicine
DX: R10.9 Unspecified abdominal pain (principal); R50.9 Fever, unspecified; N20.0 Calculus of kidney
CPT/HCPCS: 74176; 81003; 87635; 99283; 99284

== ENCOUNTER → 2020-05-01 09:09 | Outpatient (CLI) | payer OTHER, MEDICAID, SELFPAY ==
[2020-05-01 09:41] LABS: COVID19 -Nasal RAPID Negative (Negative)
[2020-05-01 19:49] LABS: Calcium 9.7 mg/dL (8.4-10.2); Uric Acid 3.9 mg/dL (2.5-6.2)
[2020-05-02 09:07] LABS: Parathyroid Hormone Int 49 pg/mL (15-65)
== END ==
PROVIDERS: PCP Family Medicine; Referring Provider Specialist; Visit Provider Nurse Practitioner Family
DX: J02.9 Acute pharyngitis, unspecified (principal); Z20.822 Contact with and (suspected) exposure to COVID-19; N20.0 Calculus of kidney
CPT/HCPCS: 36415; 82310; 83970; 84550; 87070; 87635

== ENCOUNTER → 2020-09-09 11:06 | Outpatient (CLI) | payer OTHER, MEDICAID, SELFPAY ==
--- NOTE | 2020-09-09 11:08 | DI.RAD.S_ITS ---
PROCEDURE: XR KUB INDICATIONS: nephrolithiasis TECHNIQUE: One view of the abdomen acquired. COMPARISON: [facility], CT, CT KIDNEY URETER BLADDER (KUB), 12/28/2019, 9:09. [facility], CT, CT KIDNEY URETER BLADDER (KUB), 01/31/2020, 21:37. FINDINGS: Surgical changes and devices: None. Bowel: Bowel gas pattern is normal. There is a large amount of stool in colon. Soft tissues: Renal contours are partially obscured by overlying stool. No suspicious abdominal calcifications. Visualized solid organ contours appear normal in size. Bones: No suspicious bony lesions. IMPRESSION: 1. No definitive renal calculi. Kidneys are, however, partially obscured by stool content in colon. Dictated by: Warren De La Rosa M.D. on 09/09/2020 at 12:04 Approved by: Warren De La Rosa M.D. on 09/09/2020 at 12:06
== END ==
PROVIDERS: PCP Family Medicine; Referring Provider Specialist; Visit Provider Specialist
DX: N20.0 Calculus of kidney (principal); Z87.440 Personal history of urinary (tract) infections; Z68.25 Body mass index [BMI] 25.0-25.9, adult
CPT/HCPCS: 74018; 82365; 99214

== ENCOUNTER → 2020-09-09 15:31 | Outpatient (CLI) | payer OTHER, MEDICAID, SELFPAY ==
[2020-09-19 05:25] LABS: Size <1 mm (.)
== END ==
PROVIDERS: PCP Family Medicine; Visit Provider Specialist
DX: N20.0 Calculus of kidney (principal)
CPT/HCPCS: 82365

== ENCOUNTER → 2020-11-10 15:04 | Outpatient (CLI) | payer OTHER, MEDICAID, SELFPAY ==
[2020-11-10 15:22] LABS: Add Manual Diff / Slide Review NO; Basophils Absolute Auto 0 /uL (0-100); Basophils Percent Auto 0.5 % (0-2); Eosinophils Absolute Auto 200 /uL (0-450); Eosinophils Percent Auto 4.1 % (2-4); Hemoglobin 13.8 g/dL (12.0-16.0); Lymphocytes Absolute Auto 2700 /uL (1100-4500); Lymphocytes Percent Auto 46.3 % (25-40); Mean Corpuscular HGB Conc 34.5 % (30-36); Monocytes Absolute Auto 500 /uL (0-900); Monocytes Percent Auto 8.6 % (3-14); Neutrophils Absolute Auto 2400 /uL (1500-7000); Neutrophils Percent Auto 40.5 % (50-75); Platelet Count 237 X10^3/uL (150-400); Red Blood Cell Count 4.76 X10^6/uL (4.0-5.2); Red Cell Distribution Width 12.8 % (11.6-14.8); White Blood Cell Count 5.8 X10^3/uL (4.5-11.0)
[2020-11-10 15:34] LABS: Alanine Aminotransferase 12 IU/L (<35); Albumin Globulin Ratio 1.3 (1.0-2.8); Alkaline Phosphatase 48 U/L (38-126); Aspartate Aminotransferase 21 IU/L (14-36); BUN Creatinine Ratio 15.9 (6-22); Bilirubin Total 0.4 mg/dL (0.2-1.3); Blood Urea Nitrogen 10 mg/dL (7-17); Calcium 9.3 mg/dL (8.4-10.2); Carbon Dioxide 26 mmol/L (22-32); Chloride 107 mmol/L (98-107); Estimated Glomerular Filt Rate > 60.0 mL/min (>60); Globulin 3.2 g/dL (1.7-4.1); Glucose 101 mg/dL (70-100); HEMOLYSIS < 15 (0-50); Potassium 4.4 mmol/L (3.4-5.1); Sodium 139 mmol/L (137-145); Total Protein 7.2 g/dL (6.3-8.2)
[2020-11-10 16:06] LABS: TSH w/ Reflex to FT4 1.79 uIU/mL (0.47-4.68)
== END ==
PROVIDERS: PCP Family Medicine; Referring Provider Family Medicine; Visit Provider Family Medicine
DX: N92.0 Excessive and frequent menstruation with regular cycle (principal); N93.8 Other specified abnormal uterine and vaginal bleeding; R63.5 Abnormal weight gain
CPT/HCPCS: 36415; 80053; 84443; 85025

== ENCOUNTER → 2020-11-14 16:18 | Outpatient (CLI) | payer OTHER, MEDICAID, SELFPAY ==
[2020-11-14 18:18] LABS: Free T3, Triiodothyronine Free 4.25 pg/mL (2.77-5.27); Free T4, Direct Thyroxine 1.01 ng/dL (0.78-2.19)
[2020-11-14 18:32] LABS: Thyroid Stimulating Hormone 1.22 uIU/mL (0.47-4.68)
[2020-11-15 06:45] LABS: Thyroid Peroxidase Antibodies <8 IU/mL (0-34)
[2020-11-15 18:11] LABS: Anti Thyroglobulin Antibody <1.0 IU/mL (0.0-0.9)
== END ==
PROVIDERS: PCP Family Medicine; Referring Provider Family Medicine; Visit Provider Family Medicine
DX: R63.5 Abnormal weight gain (principal); N92.0 Excessive and frequent menstruation with regular cycle
CPT/HCPCS: 36415; 84439; 84443; 84481; 86376; 86800

== ENCOUNTER → 2021-01-13 09:19 | Outpatient (CLI) | payer OTHER, MEDICAID, SELFPAY ==
--- NOTE | 2021-01-13 09:20 | DI.US.S_ITS ---
PROCEDURE: US THYROID INDICATIONS: TENDER THYROID TECHNIQUE: Real-time scanning was performed of the thyroid gland, with image documentation. COMPARISON: None. FINDINGS: Right: Thyroid lobe measures 4.6 x 1.3 x 1.1 cm, and is homogeneous in echotexture. Left: Thyroid lobe measures 4.5 x 1.2 x 1.1 cm, and is homogenous in echotexture. Isthmus: 2 mm thick. No suspicious thyroid nodule is appreciated. Other: A lymph node is seen adjacent to the superior right thyroid, measuring 1.8 x 1.7 x 0.6 cm, which contains a fatty hilum. The 2nd lymph node is identified adjacent to the superior left thyroid, measuring 3.7 x 2.1 x 1 cm, which appears to contain a fatty hilum. IMPRESSION: 1. No suspicious thyroid nodule. 2. Bilateral lymph nodes adjacent to the superior thyroid as detailed above, which may reflect be reactive. Consider short term sonographic follow-up as clinically warranted. Dictated by: Jovany aVzquez M.D. on 01/13/2021 at 10:40 Approved by: Jovany Vazquez M.D. on 01/13/2021 at 10:45
== END ==
PROVIDERS: PCP Family Medicine; Referring Provider Family Medicine; Visit Provider Family Medicine
DX: E07.9 Disorder of thyroid, unspecified (principal)
CPT/HCPCS: 76536

== ENCOUNTER → 2021-01-19 10:01 | Outpatient (CLI) | payer OTHER, MEDICAID, SELFPAY ==
[2021-01-19 11:03] LABS: Mean Corpuscular HGB Conc 35.3 % (30-36); Mean Corpuscular Hemoglobin 29.3 PG (26-34); Mean Corpuscular Volume 83.1 fL (80-100); Platelet Count 268 X10^3/uL (150-400); Red Blood Cell Count 4.45 X10^6/uL (4.0-5.2); Red Cell Distribution Width 12.8 % (11.6-14.8); White Blood Cell Count 6.8 X10^3/uL (4.5-11.0)
[2021-01-19 11:19] LABS: Monotest Negative (Negative)
[2021-01-19 11:29] LABS: Neutrophils Absolute Manual 1768 /uL (3000-5900); Total Cells Counted 100
[2021-01-19 11:30] LABS: RBC Morphology Normal Morphology
[2021-01-20 08:16] LABS: EBV Virus IgG Ab < 18.0 U/mL (0.0-17.9); EBV Virus IgM Ab < 36.0 U/mL (0.0-35.9)
[2021-01-20 17:48] LABS: CMV DNA, Quant Real Time PCR Negative (Negative)
== END ==
PROVIDERS: PCP Family Medicine; Referring Provider Family Medicine; Visit Provider Family Medicine
DX: K21.9 Gastro-esophageal reflux disease without esophagitis (principal); R53.83 Other fatigue; J02.9 Acute pharyngitis, unspecified; R59.0 Localized enlarged lymph nodes
CPT/HCPCS: 36415; 85025; 86318; 86665; 87497

== ENCOUNTER → 2021-02-10 16:02 | Outpatient (CLI) | payer OTHER, MEDICAID, SELFPAY ==
--- NOTE | 2021-02-10 16:03 | DI.US.S_ITS ---
PROCEDURE: US ABDOMEN COMPLETE INDICATIONS: ADENOPATHY AND SPLENOMEGALY TECHNIQUE: Real-time scanning was performed of the abdominal and retroperitoneal organs, with image documentation. COMPARISON: [facility], US, ABDOMEN COMPLETE, 04/29/2014, 8:29. FINDINGS: Liver: Liver is normal in size and homogeneous in echotexture. Gallbladder: No findings of gallstones or sludge are seen. The gallbladder wall is not thickened, measuring 3 mm or less. Two likely gallbladder wall polyps are seen that measure up to 2 mm and up to 3 mm, respectively. No specific pericholecystic fluid is seen. The sonographic Flores sign is negative. Biliary ducts: Intrahepatic bile ducts are non-dilated. Extrahepatic bile duct caliber measures 6 mm. Normal is 6-7 mm or less in diameter, or 10 mm or less post-cholecystectomy. Pancreas: Visualized portions of the pancreas are sonographically normal. Spleen: The spleen measures at the upper limits of normal at 13 cm. Kidneys: Kidneys are normal in size and echotexture. Right kidney measures 11.8 cm long; left kidney measures 12.5 cm long. No hydronephrosis or nephrolithiasis. No solid masses. Aorta: Visualized aorta is normal in caliber at less than 3 cm. Iliacs: Proximal common iliac arteries are normal in caliber at less than 2.5 cm. IVC: Intrahepatic inferior vena cava is patent. Miscellaneous: No free abdominal fluid. IMPRESSION: The spleen measures at the upper limits of normal at 13 cm. Gallbladder wall polyps are incidentally noted. Dictated by: Mich Walton M.D. on 02/10/2021 at 16:57 Approved by: Mich Walton M.D. on 02/10/2021 at 16:58
== END ==
PROVIDERS: PCP Family Medicine; Referring Provider Family Medicine; Visit Provider Family Medicine
DX: R16.1 Splenomegaly, not elsewhere classified (principal)
CPT/HCPCS: 76700

== ENCOUNTER → 2021-02-23 17:54 | Outpatient (CLI) | payer OTHER, MEDICAID, SELFPAY | PROVIDERS: PCP Family Medicine; Referring Provider Nurse Practitioner Family; Visit Provider Nurse Practitioner Family | DX: N34.3 Urethral syndrome, unspecified (principal) | CPT/HCPCS: 81002; 87077; 87086; 87186 ==

== ENCOUNTER → 2021-03-19 12:53 | Outpatient (CLI) | payer OTHER, MEDICAID, SELFPAY ==
--- NOTE | 2021-03-19 12:54 | DI.US.S_ITS ---
PROCEDURE: US SOFT TISSUE HEAD AND NECK INDICATIONS: cervical, suprathyroid adenopathy TECHNIQUE: Real-time scanning was performed of the neck region of interest, with image documentation. COMPARISON: None. FINDINGS: Morphologically normal appearing prominent lymph nodes are again identified bilaterally measuring 3.6 x 8.2 x 12.1 cm on the left and 3.5 x 0.7 x 1.7 cm on the right which has decreased in size. IMPRESSION: Mildly prominent lymph nodes again seen bilaterally, the left of which has not significantly changed and the right has decreased in size compared to prior exam. Dictated by: Nick Silver [facility] Interpreted: Warren De La Rosa MD on 03/19/2021 at 13:23 Transcribed by: AYDEN on 03/19/2021 at 13:25 Approved by: Warren De La Rosa M.D. on 03/19/2021 at 16:46
== END ==
PROVIDERS: PCP Family Medicine; Referring Provider Family Medicine; Visit Provider Family Medicine
DX: R59.0 Localized enlarged lymph nodes (principal)
CPT/HCPCS: 76536

== ENCOUNTER → 2021-04-21 14:43 | Outpatient (CLI) | payer OTHER, MEDICAID, SELFPAY ==
--- NOTE | 2021-04-21 14:44 | DI.CT.S_ITS ---
PROCEDURE: CT SOFT TISSUE NECK W CON INDICATIONS: lymphadenopathy TECHNIQUE: After the administration of intravenous contrast, 3.0 mm axial sections acquired from the sella to the aortic arch. Additional oblique axial 3.0 mm sections acquired through the pharynx. 3 mm thick coronal and sagittal reformats were generated. For radiation dose reduction, the following was used: automated exposure control. COMPARISON: [facility], , SOFT TISSUE HEAD AND NECK, 03/19/2021, 13:05. FINDINGS: Image quality: Excellent. Lymph nodes: Nonspecific lymphadenopathy in the bilateral suprahyoid neck (levels 2 and 3), slightly more pronounced on the left. No centrally necrotic lymph nodes. Mild fat stranding adjacent to the lymph nodes suggests a reactive infectious or inflammatory process, as opposed to malignancy, although this is not definitive. Vessels: Visualized vasculature appears patent. Neck spaces: The oropharynx, nasopharynx, and pharynx demonstrate no mucosal lesions. The vocal cords, false vocal cords, pyriform sinuses, epiglottis, vallecula, and tongue base all appear normal. Extramucosal spaces appear unremarkable. Glands: The parotid and submandibular glands appear normal. Thyroid gland uniform attenuation. Miscellaneous: Visualized brain and orbits appear normal. Lung apices appear clear. Superficial soft tissues appear normal. Bones: Small mucous retention cysts in the maxillary sinuses. Remaining paranasal sinuses and mastoid air cells clear. IMPRESSION: Mild bilateral suprahyoid cervical lymphadenopathy, not significantly changed from 03/19/2021 ultrasound. Fat stranding surrounding the nodes suggests an infectious or inflammatory process, as opposed to malignancy, although this is not entirely definitive. Continued follow-up recommended to document stability/resolution, although tissue sampling could be considered at this point to help exclude a lymphoproliferative disorder. Dictated by: Jake Eller M.D. on 04/21/2021 at 15:16 Approved by: Jake Eller M.D. on 04/21/2021 at 15:19
== END ==
PROVIDERS: PCP Family Medicine; Referring Provider Family Medicine; Visit Provider Family Medicine
DX: R59.0 Localized enlarged lymph nodes (principal); R53.81 Other malaise; R53.83 Other fatigue
CPT/HCPCS: 70491; Q9967

== ENCOUNTER → 2021-05-18 10:56 | Outpatient (CLI) | payer OTHER, MEDICAID, SELFPAY ==
[2021-05-18 12:55] LABS: COVID19 -Nasal RAPID Negative (Negative)
== END ==
PROVIDERS: PCP Family Medicine; Referring Provider Surgery; Visit Provider Surgery
DX: Z01.812 Encounter for preprocedural laboratory examination (principal); Z20.822 Contact with and (suspected) exposure to COVID-19
CPT/HCPCS: 87635; C9803

== ENCOUNTER 2021-05-19 08:50 | Day surgery (SDC) | payer OTHER, MEDICAID, SELFPAY ==
[2021-05-15 08:19] VITALS: BMI 34.3
--- NOTE | 2021-05-18 15:05 | SUR.PREOP ---
Preop phone call: Pt concerned about suboxone use. States Dr Haja Martell has left [address] Montano to discuss pain management plan postop. I called [facility] and spoke to [place]. She spoke to pt earlier today and forwarded the message to Dr Montano. I spoke with Dr Atkins who will text Dr Montano about this issue.
[2021-05-19] VITALS (11 sets, daily range): BP systolic 117–137; BP diastolic 65–89; PULSE 68–73; RESP 12–16; TEMP 36.2–36.3; O2SAT 97–100; BMI 25.1
--- NOTE | 2021-05-19 | PATH_ITS ---
[facility] Accession Number: [id number] . 01 Material submitted: . gallbladder - GALLBLADDER . 02 Diagnosis: Gallbladder, Cholecystectomy: Chronic cholecystitis with cholelithiasis. Negative for dysplasia and malignancy. MRV 05/25/2021 1210 Local . 02 Electronically signed: . Agnes Weiss MD, Pathologist NPI- [id number] . 01 Gross description: . Received in formalin, labeled with the patient's name and gallbladder, is composed of an intact gallbladder which measures 6.5 x 2.5 x 1.0 cm. The cystic duct margin is stapled. The serosal surface is shukla-stephen and smooth. The hepatic surface is shukla-brown and slightly roughened. The cystic duct diameter is 0.4 cm. The gallbladder is opened to reveal bile sludge. The mucosa is shukla-green, velvety and smooth. Minute choleliths measuring 0.1 cm are noted within the lumen. The mucosa is shukla-green, smooth and velvety. Discrete lesions are not identified. The gallbladder wall thickness is 0.1 cm. Instrument Technologist sections are submitted. . A1 - Cystic duct margin, en face, inked blue, and sales representative church furniture sections of the gallbladder. ([id number]) /MRV 05/21/2021 1326 Local . 02 Pathologist provided ICD-10: K80.50 . 02 CPT . 170569 Specimen Comment: A courtesy copy of this report has been sent to [phone] Performed at: 01 [facility] [address] [facility], [place], [place] [id number] MD Wilder Feldman MD Phone: [phone] Performed at: 02 [facility] [id number] [place] [id number] MD Agnes Weiss MD Phone: [phone]
[2021-05-19] MEDS: LACTATED RINGERS 1,000 ML 42 ML IV (09:26)
--- NOTE | 2021-05-19 10:46 | PM.HP.1 ---
History of Present Illness History of Present Illness Date Patient Seen: 05/19/21 Time Patient Seen: 10:46 Chief complaint: SDC Narrative: Clara is a 26-year-old woman with abdominal pain with biliary colic. She had an ultrasound showing gallbladder polyps. Patient History Medical History (Updated 05/15/21 @ 08:27 by Kristin Kincaid RN) Allergic to dogs Asthma Coccydynia Degeneration of intervertebral disc at L5-S1 level Drug use disorder (08/25/16) Facet arthropathy, lumbar Facet arthropathy, lumbosacral GERD (gastroesophageal reflux disease) H pylori ulcer History of nephrolithiasis History of UTI Lymphadenopathy Migraine with aura Nephrolithiasis Opioid use disorder Surgical History H/O nasal septoplasty Family & Social History Family History Brother Scoliosis Mother Bulging discs Kidney stones UTI (urinary tract infection) Mother No problems noted. Social History: household members family Tobacco & Substance use: Smoking Status Never smoker alcohol intake never alcohol intake frequency 0-2 drinks per day Substance Use Type does not use Meds Home Medications and Allergies Home Medications Medication Instructions Recorded Confirmed Type promethazine 12.5 mg tablet 12.5 mg PO Q6H PRN #30 tab 06/19/19 05/15/21 Rx celecoxib 200 mg capsule (Celebrex) 200 mg PO DAILY #90 cap 07/29/20 05/19/21 Rx cetirizine 10 mg tablet 10 mg PO DAILY #90 tab 09/23/20 05/19/21 Rx albuterol sulfate 90 mcg/actuation 90 mcg INHALATION Q4HP PRN #1 11/14/20 05/15/21 Rx breath activated powder inhaler inhalation (ProAir RespiClick) valacyclovir 1 gram tablet See Rx Instructions .ROUTE 02/10/21 05/19/21 Rx .COMPLEX #90 tab drospirenone 3 mg-ethinyl 1 tab PO QDAY #84 tab 03/04/21 05/19/21 Rx estradiol 0.03 mg tablet (Shila (28)) escitalopram oxalate 10 mg tablet 10 mg PO DAILY #90 tab 03/04/21 05/19/21 Rx propranolol 20 mg tablet See Rx Instructions .ROUTE 03/24/21 04/16/21 Rx .COMPLEX #60 tab ondansetron HCl 4 mg tablet 4 mg PO Q8H PRN #10 tab 04/03/21 05/15/21 Rx methylphenidate HCl 20 mg tablet See Rx Instructions PO TID #120 tab 04/14/21 05/19/21 Rx buprenorphine 8 mg-naloxone 2 mg 6 film DAILY 05/18/21 05/19/21 History sublingual film (Suboxone) Allergies Allergy/AdvReac Type Severity Reaction Status Date / Time amoxicillin [From AUGMENTIN] Allergy Intermediate Hives Verified 05/19/21 09:08 clavulanic acid Allergy Intermediate Hives Verified 05/19/21 09:08 [From AUGMENTIN] Penicillins [PENICILLINS] Allergy Unknown Hives Verified 05/19/21 09:08 Exam Vital Signs (past 8 hours): - 05/19/21 09:15 Temperature 97.3 F L Pulse Rate 69 Respiratory Rate 16 Blood Pressure 137/88 Pulse Oximetry 99 Oxygen Delivery Method Room Air Const General: healthy appearing Resp Effort & Inspection: normal respiratory effort GI Palpation: soft Assessment & Plan Assessment and plan (1) Gallbladder polyp: Status: Acute Plan We discussed the risks and benefits of laparoscopic cholecystectomy for her biliary colic. She understands the risks benefits and limitations. She would like to proceed. COVID-19 COVID-19 status: Negative Result date/Date tested (Pos, Neg/Pending): 05/18/21 Time Spent With Patient Critical Care time: I spent a total of [] minutes of critical care time on this patient's care today; this time is exclusive of procedural time.
[2021-05-19] MEDS: FAMOTIDINE 20 MG/2 ML VIAL IV (10:52)
[2021-05-19] MEDS: CEFAZOLIN 2 GM/20 ML SYRINGE IV (11:28)
[2021-05-19] MEDS: ACETAMINOPHEN IV 1,000 MG/100 ML VIAL 400 MG IV (11:40)
--- NOTE | 2021-05-19 11:44 | SUR.OPER ---
Supine on padded OR bed, head on pillow, safety belt at thigh, Bilateral arms secured on padded arm board <90 degrees abduction. Legs uncrossed. Padded footboard in place. Gel pad under heels. Tape over blanket to secure lower legs.
[2021-05-19] MEDS: BUPIVACAINE 0.5% (PF) 30 ML, EPINEPHrine 0.15 MG INJ (12:04)
[2021-05-19] MEDS: LIDOCAINE 1% 20 ML INJ (12:04)
--- NOTE | 2021-05-19 13:03 | PM.OP.1 ---
Operative Date/Time/Diagnoses Date of procedure: 05/19/21 Time of procedure: 13:03 Pre-op diagnosis: Biliary colic Post-op diagnosis: same Procedure & Clinicians Procedure: Laparoscopic cholecystectomy Same procedure as scheduled: Yes Indications: Biliary colic Surgeon: Artur Montano Click Yes if Unassisted: Yes Anesthesia Type: General Operative Notes Procedure in detail: The patient was given preoperative antibiotic. The patient was brought to the operating room, placed on the table in the supine position. General endotracheal anesthesia was induced. The abdomen was prepped and draped. A time-out was performed. We made a 1 cm infraumbilical incision. We dissected down to the base of the umbilical stalk using cautery. We grasped the umbilical stalk with a Darlin clamp to elevate the abdominal wall. We scored the fascia in the midline with cautery 1 cm. We pierced the peritoneum with a Peon clamp. The Meet port was placed and the abdomen was insufflated to 15 mmHg. A 10 mm 30 degree laparoscopic was inserted. There was no evidence of any injury from the entry. Next, we placed 5 mm ports in the subxiphoid position and right upper quadrant at the midclavicular line and anterior axillary line. Patient was then positioned in reverse Trendelenburg and the table was tilted to the left. The gallbladder was grasped at the dome and retracted cephalad. There were some filmy adhesions over the infundibulum of the gallbladder which were taken down with a combination of blunt dissection and hook cautery. We then dissected the cystic structures with a combination of hook cautery and blunt dissection. We obtained a critical view. We placed hemoclips on the cystic duct and artery and divided the cystic duct and artery sharply between the clips. The gallbladder was then dissected off the liver and placed in a specimen retrieval bag. We irrigated the right upper quadrant and all the aspirate returned clear. We then removed the 5 mm ports under direct vision we removed the Meet port. We then injected some local into the fascia and closed the fascia with 2 interrupted 0 Vicryl sutures. The skin incisions were closed with 4 Monocryl and Steri-Strips were applied. Band-Aids were applied over the Steri-Strips. EBL: 10 mL Specimen: Gallbladder Post-operative Condition: stable Disposition: PACU
[2021-05-19] MEDS: fentaNYL 250 MCG/5 ML INJ IV (13:14)
[2021-05-19] MEDS: OXYCODONE IR 5 MG TABLET PO ×2 (13:28→13:51)
== END 2021-05-19 14:13 | disposition home or self-care (01) ==
PROVIDERS: PCP Family Medicine; Referring Provider Surgery; Visit Provider Surgery
PROC: 0FT44ZZ Resection of Gallbladder, Percutaneous Endoscopic Approach (ICD-10-PCS; CPT 47562; principal; 2021-05-19 09:45)
DX: K80.10 Calculus of gallbladder with chronic cholecystitis without obstruction (principal); J45.20 Mild intermittent asthma, uncomplicated; K21.9 Gastro-esophageal reflux disease without esophagitis; F11.11 Opioid abuse, in remission
CPT/HCPCS: 47562; 81025; J0131; J0171; J0330; J0690; J1100; J1885; J2250; J2405; J2704; J3010

== ENCOUNTER → 2021-06-17 15:11 | Outpatient (CLI) | payer OTHER, MEDICAID, SELFPAY ==
[2021-06-17 15:52] LABS: Bilirubin Urine UA NEGATIVE (NEGATIVE); Color Urine UA YELLOW; Glucose Urine UA NEGATIVE (Negative); Ketones Urine UA NEGATIVE (NEGATIVE); Leukocyte Esterase Urine UA 1+ (NEGATIVE); Nitrite Urine UA NEGATIVE (Negative); Occult Blood Urine UA 2+ (Negative); Protein Urine UA NEGATIVE (Negative); Urobilinogen Urine UA 0.2 E.U./dL (0.2)
[2021-06-17 16:02] LABS: Amorphous Sediment Urine 1+; Appearance Urine UA Slightly Cloudy; Bacteria Urine Few (2-10); Culture Indicated Urine Specimen Cultured; Mucus Urine 1+ (Negative); RBC Urine 5-10/HPF (0-5/HPF); Squamous Epithelial Cell Urine 5-10 /HPF (0-5/HPF); WBC Urine 10-30/HPF (0-5/HPF)
[2021-06-17 16:29] LABS: Hemoglobin A1C% w Est Avg Glu 4.6 % (4.0-6.0)
== END ==
PROVIDERS: PCP Family Medicine; Referring Provider Registered Nurse Diabetes Educator; Visit Provider Registered Nurse Diabetes Educator
DX: E16.2 Hypoglycemia, unspecified (principal); K91.2 Postsurgical malabsorption, not elsewhere classified
CPT/HCPCS: 36415; 81001; 82948; 83036; 87086

== ENCOUNTER → 2021-06-23 12:57 | Outpatient (CLI) | payer OTHER, MEDICAID, SELFPAY ==
[2021-06-23 16:18] LABS: Appearance Urine UA CLEAR; Bilirubin Urine UA NEGATIVE (NEGATIVE); Color Urine UA YELLOW; Glucose Urine UA NEGATIVE (Negative); Ketones Urine UA NEGATIVE (NEGATIVE); Leukocyte Esterase Urine UA NEGATIVE (NEGATIVE); Nitrite Urine UA NEGATIVE (Negative); Occult Blood Urine UA 3+ (Negative); Protein Urine UA NEGATIVE (Negative); Specific Gravity Urine UA 1.025 (1.000-1.035); Urobilinogen Urine UA 0.2 E.U./dL (0.2)
[2021-06-23 16:50] LABS: Bacteria Urine Occasional (0-1); Culture Indicated Urine Cult Not Indicated; RBC Urine 30-100/HPF (0-5/HPF); Squamous Epithelial Cell Urine 0-1 /HPF (0-5/HPF); WBC Urine 0-1/HPF (0-5/HPF)
== END ==
PROVIDERS: PCP Family Medicine; Referring Provider Registered Nurse Diabetes Educator; Visit Provider Registered Nurse Diabetes Educator
DX: R31.9 Hematuria, unspecified (principal)
CPT/HCPCS: 81001; 87086

== ENCOUNTER 2021-07-10 19:51 | Emergency (ER) | payer OTHER, MEDICAID, SELFPAY ==
[2021-07-10 20:00] VITALS: BP 159/92; PULSE 73; RESP 22; TEMP 37; O2SAT 99; BMI 28.0
[2021-07-10 22:20] LABS: Add Manual Diff / Slide Review NO; Basophils Absolute Auto 0 /uL (0-100); Basophils Percent Auto 0.4 % (0-2); Eosinophils Absolute Auto 300 /uL (0-450); Eosinophils Percent Auto 4.8 % (2-4); Hematocrit 37.8 % (36-46); Hemoglobin 13.3 g/dL (12.0-16.0); Lymphocytes Absolute Auto 2600 /uL (1100-4500); Lymphocytes Percent Auto 41.7 % (25-40); Mean Corpuscular HGB Conc 35.2 % (30-36); Mean Corpuscular Hemoglobin 29.3 PG (26-34); Mean Corpuscular Volume 83.3 fL (80-100); Monocytes Absolute Auto 400 /uL (0-900); Neutrophils Absolute Auto 2900 /uL (1500-7000); Neutrophils Percent Auto 46.1 % (50-75); Platelet Count 227 X10^3/uL (150-400); Red Blood Cell Count 4.53 X10^6/uL (4.0-5.2); Red Cell Distribution Width 12.4 % (11.6-14.8); White Blood Cell Count 6.3 X10^3/uL (4.5-11.0)
[2021-07-10 22:22] LABS: Alanine Aminotransferase 15 IU/L (<35); Albumin Globulin Ratio 1.2 (1.0-2.8); Alkaline Phosphatase 58 U/L (38-126); Aspartate Aminotransferase 23 IU/L (14-36); BUN Creatinine Ratio 17.5 (6-22); Bilirubin Total 0.3 mg/dL (0.2-1.3); Blood Urea Nitrogen 11 mg/dL (7-17); Calcium 9.3 mg/dL (8.4-10.2); Carbon Dioxide 27 mmol/L (22-32); Chloride 105 mmol/L (98-107); Estimated Glomerular Filt Rate > 60 mL/min (>60); Globulin 3.4 g/dL (1.7-4.1); Glucose 106 mg/dL (70-100); HEMOLYSIS < 15 (0-50); Lipase 61 U/L (23-300); Sodium 140 mmol/L (137-145); Total Protein 7.4 g/dL (6.3-8.2)
--- NOTE | 2021-07-11 00:33 | ED.GENADULT ---
HPI - General Adult General Chief complaint: Dizziness Stated complaint: Enlargement in Lymphnods, SOB, Hard Lumps in Groin Time Seen by Provider: 07/10/21 23:58 Source: patient and family Mode of arrival: Ambulatory History of Present Illness HPI narrative: 26-year-old female here for evaluation of multiple symptoms to include shortness of breath, enlarged lymph nodes in her neck and her groin, occasional changes in her vision. She states she has had issues with enlarged lymph nodes in the past and she is scheduled to see an ear nose and throat doctor and also have a biopsy of the lymph nodes in the next several weeks. Over the past couple days she has noticed an increase in the size and discomfort of lymph nodes in her left groin. She denies any fevers. She also states that she has occasionally had issues with fuzziness in her vision. She is not having headache at the time. She reports no other associated symptoms. She does have history of migraines. Is not currently on any migraine medication. She had the vision disturbances earlier today with a have since resolved. Related Data Home Medications Medication Instructions Recorded Confirmed buprenorphine 8 mg-naloxone 2 mg 1 film SUBLINGUAL DAILY ea 06/17/21 06/17/21 sublingual film (Suboxone) Previous Rx's Medication Instructions Recorded cetirizine 10 mg tablet 10 mg PO DAILY #90 tab 09/23/20 albuterol sulfate 90 mcg/actuation 90 mcg INHALATION Q4HP PRN #1 11/14/20 breath activated powder inhaler inhalation (ProAir RespiClick) drospirenone 3 mg-ethinyl 1 tab PO QDAY #84 tab 03/04/21 estradiol 0.03 mg tablet (Shila (28)) escitalopram oxalate 10 mg tablet 10 mg PO DAILY #90 tab 03/04/21 propranolol 20 mg tablet See Rx Instructions .ROUTE 03/24/21 .COMPLEX #60 tab ondansetron HCl 4 mg tablet 4 mg PO Q8H PRN #10 tab 04/03/21 promethazine 12.5 mg tablet 12.5 mg PO Q6H PRN #30 tab 06/01/21 valacyclovir 1 gram tablet See Rx Instructions .ROUTE 06/01/21 .COMPLEX #90 tab celecoxib 200 mg capsule (Celebrex) 200 mg PO DAILY #90 cap 06/10/21 methylphenidate HCl 20 mg tablet See Rx Instructions PO TID #120 tab 06/18/21 tamsulosin 0.4 mg capsule 0.4 mg PO DAILY #14 cap 06/24/21 Allergies Allergy/AdvReac Type Severity Reaction Status Date / Time amoxicillin [From AUGMENTIN] Allergy Intermediate Hives Verified 06/17/21 14:18 clavulanic acid Allergy Intermediate Hives Verified 06/17/21 14:18 [From AUGMENTIN] Penicillins [PENICILLINS] Allergy Unknown Hives Verified 06/17/21 14:18 Review of Systems Constitutional Constitutional: Reports as per HPI and Reports system reviewed and no additional complaints, except as documented Eyes Eyes: Reports as per HPI and Reports system reviewed and no additional complaints, except as documented ENT Ears, Nose, Mouth, and Throat: Reports system reviewed and no additional complaints, except as documented and Reports as per HPI Cardiovascular Cardiovascular: Denies chest pain and Denies dyspnea Respiratory Respiratory: Denies dyspnea Gastrointestinal Gastrointestinal: Reports system reviewed and no additional complaints, except as documented Genitourinary Genitourinary: Reports system reviewed and no additional complaints, except as documented Integumentary/Breasts Skin/Breast: Reports system reviewed and no additional complaints, except as documented Neurologic Neurologic: Reports system reviewed and no additional complaints, except as documented Psychiatric Psychiatric: Denies anxiety Hematologic/Lymphatic On Anticoagulants: No Allergic/Immunologic Allergic/Immunologic: Reports system reviewed and no additional complaints, except as documented Patient History Medical History Acute right flank pain Allergic to dogs Asthma Coccydynia Degeneration of intervertebral disc at L5-S1 level Drug use disorder (08/25/16) Facet arthropathy, lumbar Facet arthropathy, lumbosacral GERD (gastroesophageal reflux disease) H pylori ulcer Hematuria without proteinuria History of kidney stones History of nephrolithiasis History of UTI Lymphadenopathy Migraine with aura Nephrolithiasis Opioid use disorder Unexplained night sweats Surgical History H/O nasal septoplasty Family History Brother Scoliosis Mother Bulging discs Kidney stones UTI (urinary tract infection) Mother No problems noted. Social History marital status: unmarried,single household members: family Smoking Status: Never smoker alcohol intake: never Smoking Status: Never smoker alcohol intake frequency: 0-2 drinks per day Substance Use Type: does not use Exam Initial Vital Signs Initial Vital Signs: Vital Signs Temperature 98.6 F 07/10/21 20:00 Pulse Rate 73 07/10/21 20:00 Respiratory Rate 22 07/10/21 20:00 Blood Pressure 159/92 H 07/10/21 20:00 Pulse Oximetry 99 07/10/21 20:00 Const General: cooperative, comfortable and well developed HENMA Head: normal to inspection and normocephalic Eyes General: appearance normal, both eyes and all related structures Resp Effort & Inspection: normal respiratory effort Cardio Rate: regular rate Rhythm: regular rhythm GI Inspection: normal to inspection Other: Patient with 1 1 cm enlarged lymph node in the left inguinal region. Skin General: no rashes or lesions noted Neuro General: patient alert, patient awake and moves all extremities Extrem General: normal to inspection and capillary refill normal Psych Appearance: grossly normal and well kempt Course Orders Ordered: ED Orders 07/11/21 00:01 Urine Culture Stat Urine Microscopic Stat Vital Signs Vital signs: Vital Signs - 8 hr 07/10/21 20:00 Temperature 98.6 F Pulse Rate 73 Respiratory Rate 22 Blood Pressure 159/92 H Pulse Oximetry 99 Medical Decision Making Medical Records Medical records reviewed: Yes I reviewed the patient's medical records. Lab Data Lab results reviewed: Yes I reviewed the patient's lab results. Result diagrams: 07/10/21 20:20 07/10/21 20:20 Labs: Lab Results 07/10/21 07/10/21 07/11/21 Range/Units 20:20 20:20 00:01 WBC 6.3 (4.5-11.0) X10^3/uL RBC 4.53 (4.0-5.2) X10^6/uL Hgb 13.3 (12.0-16.0) g/dL Hct 37.8 (36-46) % MCV 83.3 (80-100) fL MCH 29.3 (26-34) PG MCHC 35.2 (30-36) % RDW 12.4 (11.6-14.8) % Plt Count 227 (150-400) X10^3/uL Neut % (Auto) 46.1 L (50-75) % Lymph % (Auto) 41.7 H (25-40) % Ellsworth % (Auto) 7.0 (3-14) % Eos % (Auto) 4.8 H (2-4) % Baso % (Auto) 0.4 (0-2) % Neut # (Auto) 2900 (6352-4135) /uL Lymph # (Auto) 2600 (8506-7394) /uL Ellsworth # (Auto) 400 (0-900) /uL Eos # (Auto) 300 (0-450) /uL Baso # (Auto) 0 (0-100) /uL Sodium 140 (137-145) mmol/L Potassium 4.0 (3.4-5.1) mmol/L Chloride 105 (98-107) mmol/L Carbon Dioxide 27 (22-32) mmol/L BUN 11 (7-17) mg/dL Creatinine 0.63 (0.52-1.04) mg/dL Estimated GFR > 60 (>60) mL/min BUN/Creatinine Ratio 17.5 (6-22) Glucose 106 H (70-100) mg/dL Calcium 9.3 (8.4-10.2) mg/dL Total Bilirubin 0.3 (0.2-1.3) mg/dL AST 23 (14-36) IU/L ALT 15 (<35) IU/L Alkaline Phosphatase 58 (38-126) U/L Total Protein 7.4 (6.3-8.2) g/dL Albumin 4.0 (3.5-5.0) g/dL Globulin 3.4 (1.7-4.1) g/dL Albumin/Globulin Ratio 1.2 (1.0-2.8) Lipase 61 (23-300) U/L Urine RBC 5-10/hpf H (0-5/HPF) Urine WBC None seen (0-5/HPF) Urine Bacteria Occasional (0-1) (None) Ur Culture Indicated? Specimen cultured Point of Care Testing Test Results Negative Urine Dip Bedside Urine Glucose Negative Bedside Urine Bilirubin - Negative Bedside Urine Ketone - Negative Urine Specific Waterfall 1.015 Bedside Urine Occult Blood ++ Bedside Urine pH 7.0 Bedside Urine Protein - Negative Bedside Urine Urobilinogen - Negative Bedside Urine Nitrite - Negative Bedside Urine Leukocytes - Negative Esterase Point of care testing: Point of Care Testing Test Results Negative Urine Dip Bedside Urine Glucose Negative Bedside Urine Bilirubin - Negative Bedside Urine Ketone - Negative Urine Specific Waterfall 1.015 Bedside Urine Occult Blood ++ Bedside Urine pH 7.0 Bedside Urine Protein - Negative Bedside Urine Urobilinogen - Negative Bedside Urine Nitrite - Negative Bedside Urine Leukocytes - Negative Esterase MDM Narrative Medical decision making narrative: Labs and vital signs are unremarkable. She does have an enlarged lymph node in the left inguinal region without overlying redness or cellulitis. She is scheduled to have a lymph node biopsy in the upcoming weeks and I do feel that this would be the next step to evaluate her lymphadenopathy that she has been having for some time now. Patient's visual disturbances have completely resolved. Given her presentation I am somewhat concerned that she potentially is having migraine headaches. She has had migraines in the past but it has not presented itself like this. I feel there is no indication for any radiologic studies to include head CT or other x-rays. Do not feel there is any other specific lab tests that would be helpful in her presentation. Also discussed with her the possibility that this is anxiety related. Provided reassurance to the patient. She was given return precautions. She expressed understanding and agreement. Discharge Plan Departure Patient Disposition: Home Clinical Impression: Lymphadenopathy Activity Restrictions/Additional Instructions: Recommend that you continue to take all of your medications as directed and keep all of your scheduled medical appointments. Return to the emergency department for any new or worsening symptoms. Prescriptions: No Action cetirizine 10 mg tablet 10 mg PO DAILY Qty: 90 3RF propranolol 20 mg tablet See Rx Instructions .ROUTE .COMPLEX Qty: 60 2RF Dose Instruction: TAKE 1 TABLET BY MOUTH TWICE DAILY Rx Instructions: TAKE 1 TABLET BY MOUTH TWICE DAILY promethazine 12.5 mg tablet 12.5 mg PO Q6H PRN (Reason: headache) Qty: 30 1RF valacyclovir 1 gram tablet See Rx Instructions .ROUTE .COMPLEX Qty: 90 0RF Dose Instruction: TAKE 1 TABLET BY MOUTH EVERY DAY Rx Instructions: TAKE 1 TABLET BY MOUTH EVERY DAY celecoxib [Celebrex] 200 mg capsule 200 mg PO DAILY Qty: 90 2RF methylphenidate HCl 20 mg tablet See Rx Instructions PO TID Qty: 120 0RF Rx Instructions: 30 mg AM, 30 mg noon, 20 mg PM tamsulosin 0.4 mg capsule 0.4 mg PO DAILY Qty: 14 0RF escitalopram oxalate 10 mg tablet 10 mg PO DAILY Qty: 90 1RF drospirenone-ethinyl estradiol [Shila (28)] 3-0.03 mg tablet 1 tab PO QDAY Qty: 84 3RF ProAir RespiClick 90 mcg/actuation aerosol powdr breath activated 90 mcg inhalation Q4HP PRN (Reason: shortness of breath or wheezing) Qty: 1 5RF ondansetron HCl 4 mg tablet 4 mg PO Q8H PRN (Reason: nausea and vomiting) Qty: 10 0RF buprenorphine-naloxone [Suboxone] 8-2 mg film 1 film sublingual DAILY 0RF Label Comments: DISSOLVE 1/4 FILM UNDER THE TONGUE 4 times daily Referrals: Jyoit Redmond MD [Primary Care Provider] -
--- NOTE | 2021-07-11 00:39 | PC.NURSE ---
c/o swollen lymph nodes
[2021-07-11 01:13] LABS: Bacteria Urine Occasional (0-1); Culture Indicated Urine Specimen Cultured; RBC Urine 5-10/HPF (0-5/HPF); WBC Urine None Seen (0-5/HPF)
== END 2021-07-11 00:43 | disposition home or self-care (01) ==
PROVIDERS: Emergency Provider Emergency Medicine; PCP Family Medicine
DX: R59.0 Localized enlarged lymph nodes (principal); R06.02 Shortness of breath; H53.8 Other visual disturbances
CPT/HCPCS: 80053; 81003; 81015; 81025; 83690; 85025; 87086; 99282; 99283

== ENCOUNTER → 2021-07-31 09:50 | Outpatient (CLI) | payer OTHER, MEDICAID, SELFPAY ==
--- NOTE | 2021-07-31 10:59 | DI.CT.S_ITS ---
PROCEDURE: CT CHEST ABD PEL W CON INDICATIONS: lymphadenopathy, fever, night sweats, unknown etiology TECHNIQUE: After the administration of oral and intravenous contrast, axial sections acquired from the supraclavicular neck to the pubic symphysis. Coronal and sagittal reformats were performed. For radiation dose reduction, the following was used: automated exposure control, adjustment of mA and/or kV according to patient size. COMPARISON:[facility], [place], CT KIDNEY URETER BLADDER (KUB), 01/31/2020, 21:37. FINDINGS: Image quality: Excellent. CHEST: Lower Neck: No enlarged lymph nodes. Thyroid: Within normal limits. Axillae: No enlarged lymph nodes. Chest Wall: Unremarkable. Lungs and Airways: No consolidation or suspicious nodules. Pleura: No pneumothorax or pleural effusions. Heart: Heart size is normal. No pericardial effusion. Thoracic Vessels: The aorta and pulmonary arteries demonstrate normal size. Mediastinum and Jaylin: No enlarged lymph nodes. Esophagus: No wall thickening. No hiatal hernia. ABDOMEN: Liver: Unremarkable. Gallbladder: Cholecystectomy. Biliary ducts: Intrahepatic biliary duct dilatation. Pancreas: Unremarkable. Spleen: Unremarkable. Adrenal Glands: Unremarkable. Kidneys and Ureters: Symmetric enhancement without evidence of obstructive uropathy. Punctate upper pole renal calculi (less than 3 mm), nonobstructive. Stomach and Bowel: Moderate stool burden throughout the colon. No evidence of intestinal obstruction or inflammatory change. Normal appearance of the appendix. Peritoneum: No abnormal intraperitoneal fluid. No free air. Ventral Wall: Trace fat containing periumbilical hernia. Abdominal Nodes: No retroperitoneal or mesenteric adenopathy by size criteria. Vessels: Aorta and inferior vena cava are normal in size. PELVIS: Pelvic Organs: Unremarkable. Bladder: Unremarkable. Pelvic Nodes: No enlarged lymph nodes. Miscellaneous: No inguinal hernias are seen. Bones: Unremarkable. IMPRESSION: 1. No significant intrathoracic abnormality. 2. No significant intra-abdominal/pelvic abnormality. Dictated by: Jovany Vazquez M.D. on 07/31/2021 at 13:01 Approved by: Jovany Vazquez M.D. on 07/31/2021 at 13:06
== END ==
PROVIDERS: PCP Family Medicine; Referring Provider Internal Medicine Hematology & Oncology; Visit Provider Internal Medicine Hematology & Oncology
DX: R59.0 Localized enlarged lymph nodes (principal)
CPT/HCPCS: 71260; 74177

== ENCOUNTER 2022-01-11 23:32 | Emergency (ER) | payer OTHER, MEDICAID, SELFPAY ==
[2022-01-11 23:36] VITALS: BMI 25.1
[2022-01-11 23:55] VITALS: BP 139/79; PULSE 98; RESP 18; TEMP 36.7; O2SAT 99
--- NOTE | 2022-01-12 00:13 | ED_ITS ---
HPI - Wound/Laceration General Chief Complaint: Wound/Laceration Stated Complaint: right hand middle finger laceration Time Seen by Provider: 01/11/22 23:41 Source: patient Mode of arrival: Ambulatory History of Present Illness HPI narrative: 26-year-old female here for evaluation of a laceration to her right middle finger. She states that approximately 36 hours ago she cut her right index finger with a ring that she was wearing on her ring finger. She was out of town when this happened. She went to an outside emergency department. States there were x-rays performed and was told that there was no bony injury. She also had exploration of the wound and she was told that there were no tendon injuries. Patient reports that despite multiple attempts to numb her finger she never could get the finger numb. There were no sutures placed. It was covered with Steri-Strips. She was not given any antibiotics. Her tetanus was updated. The wound was then covered with a bandage she was instructed to follow-up she returned home. Since that time she has had continued drainage from the area. She did not know what to do next and so she came to the emergency department to have it re-evaluated. Related Data Home Medications Medication Instructions Recorded Confirmed buprenorphine 8 mg-naloxone 2 mg 1 film sublingual DAILY 06/17/21 06/17/21 sublingual film (Suboxone) Previous Rx's Medication Instructions Recorded ondansetron HCl 4 mg tablet 4 mg PO Q8H PRN nausea and 04/03/21 vomiting #10 tabs celecoxib 200 mg capsule (Celebrex) 200 mg PO DAILY #90 caps 06/10/21 drospirenone 3 mg-ethinyl 1 tab PO QDAY #84 tabs 08/04/21 estradiol 0.03 mg tablet (Shila (28)) albuterol sulfate 90 mcg/actuation 2 puff inhalation Q4-6H PRN 08/07/21 aerosol inhaler shortness of breath or wheezing #8.5 grams promethazine 12.5 mg tablet See Rx Instructions .Route 09/28/21 .COMPLEX #30 tabs escitalopram oxalate 10 mg tablet See Rx Instructions .Route 10/05/21 .COMPLEX #90 tabs propranolol 20 mg tablet See Rx Instructions .Route 10/16/21 .COMPLEX #180 tabs cetirizine 10 mg tablet 10 mg PO DAILY #90 tabs 11/12/21 valacyclovir 1 gram tablet See Rx Instructions .Route 11/12/21 .COMPLEX #90 tabs methylphenidate HCl 20 mg tablet See Rx Instructions PO TID #120 01/04/22 tabs tamsulosin 0.4 mg capsule See Rx Instructions .Route 01/04/22 .COMPLEX #14 caps Allergies Allergy/AdvReac Type Severity Reaction Status Date / Time amoxicillin [From AUGMENTIN] Allergy Intermediate Hives Verified 06/17/21 14:18 clavulanic acid Allergy Intermediate Hives Verified 06/17/21 14:18 [From AUGMENTIN] Penicillins [PENICILLINS] Allergy Unknown Hives Verified 06/17/21 14:18 vicryl AdvReac Intermediate Uncoded 10/22/21 17:01 dissolvable sutures AdvReac Unknown sutures Uncoded 10/07/21 09:53 come out intact prior to wound healing Review of Systems Musculoskeletal Musculoskeletal: Reports system reviewed and no additional complaints, except as documented Integumentary/Breasts Skin/Breast: Reports system reviewed and no additional complaints, except as documented Neurologic Neurologic: Reports system reviewed and no additional complaints, except as documented Hematologic/Lymphatic On Anticoagulants: No Patient History Medical History Acne Acute right flank pain Allergic to dogs Asthma Bilateral hand pain Coccydynia Degeneration of intervertebral disc at L5-S1 level Drug use disorder (08/25/16) Facet arthropathy, lumbar Facet arthropathy, lumbosacral GERD (gastroesophageal reflux disease) H pylori ulcer Hematuria without proteinuria History of kidney stones History of nephrolithiasis History of UTI Lymphadenopathy Migraine with aura Nephrolithiasis Opioid use disorder Reaction of skin due to suture material Unexplained night sweats Surgical History (Updated 07/23/21 @ 15:22 by Barrett Cadena MD) H/O nasal septoplasty Family History Brother Scoliosis Mother Bulging discs Kidney stones UTI (urinary tract infection) Mother No problems noted. Social History marital status: unmarried,single Smoking Status: Never smoker alcohol intake: never Smoking Status: Never smoker alcohol intake frequency: 0-2 drinks per day Substance Use Type: does not use Exam Initial Vital Signs Initial Vital Signs: Vital Signs Temperature 98.1 F 01/11/22 23:55 Pulse Rate 98 H 01/11/22 23:55 Respiratory Rate 18 01/11/22 23:55 Blood Pressure 139/79 01/11/22 23:55 Pulse Oximetry 99 01/11/22 23:55 Oxygen Delivery Method 01/11/22 23:55 Const General: cooperative and comfortable Cardio Pulses: radial pulses present on the right Skin Other: Patient a 6 cm laceration over the palmar aspect of the right middle finger that extends from distal to the MCP joint to about the level of the D IP joint. There is no active bleeding. Neuro Sensory Exam: no sensory deficits noted Course Orders Ordered: Discontinued Medications Bacitracin (Bacitracin Oint 0.9 Gm Pckt) 1 applic TOP NOW ONE Stop: 01/12/22 00:14 Last Admin: 01/12/22 00:21 Dose: 1 applic Documented By: ADELE Tramadol HCl (Tramadol 50 Mg Prepack) 1 bottle MISC SEEINSTR ONE Stop: 01/12/22 00:17 Last Admin: 01/12/22 00:21 Dose: 1 bottle Documented By: ADELE Vital Signs Vital signs: Vital Signs - 8 hr 01/11/22 23:55 Temperature 98.1 F Pulse Rate 98 H Respiratory Rate 18 Blood Pressure 139/79 Pulse Oximetry 99 Oxygen Delivery Method Room Air MDM - Wound/Laceration MDM Narrative Medical decision making narrative: Patient reports at the outside hospital she had an x-ray performed and also a thorough examination was told that there was no tendon injuries. Her tetanus was updated. Today the wound is open but is not draining. There are Steri- Strips in place. There is no signs of infection. She is neurologically intact. The cut happened approximately 36 hours ago. She is outside the window that it could be safely closed now plus she states that they could not get her finger numb which is why it was not sutured closed initially. Informed her that it will have to heal by secondary intention. The wound was bandaged. I reassured her that the wound looks appropriate for this stage in the healing. He expressed understanding and agreement. Discharge Plan Departure Patient Disposition: Home Clinical Impression: Laceration Activity Restrictions/Additional Instructions: Can use topical antibiotic ointment. I also recommend that you use the splint for soft tissue rest. Contact your primary doctor for follow-up. Return to the emergency department for any new or worsening symptoms. Prescriptions: No Action celecoxib [Celebrex] 200 mg capsule 200 mg PO DAILY Qty: 90 2RF drospirenone-ethinyl estradiol [Shila (28)] 3-0.03 mg tablet 1 tab PO QDAY Qty: 84 1RF albuterol sulfate 90 mcg/actuation HFA aerosol inhaler 2 puff inhalation Q4-6H PRN (Reason: shortness of breath or wheezing) Qty: 8.5 11RF promethazine 12.5 mg tablet See Rx Instructions .ROUTE .COMPLEX Qty: 30 0RF Dose Instruction: TAKE ONE TABLET BY MOUTH EVERY SIX HOURS NEEDED FOR HEADACHE Rx Instructions: TAKE ONE TABLET BY MOUTH EVERY SIX HOURS NEEDED FOR HEADACHE escitalopram oxalate 10 mg tablet See Rx Instructions .ROUTE .COMPLEX Qty: 90 2RF Dose Instruction: TAKE ONE TABLET BY MOUTH ONE TIME DAILY Rx Instructions: TAKE ONE TABLET BY MOUTH ONE TIME DAILY propranolol 20 mg tablet See Rx Instructions .ROUTE .COMPLEX Qty: 180 3RF Dose Instruction: TAKE 1 TABLET BY MOUTH TWICE DAILY Rx Instructions: TAKE 1 TABLET BY MOUTH TWICE DAILY valacyclovir 1 gram tablet See Rx Instructions .ROUTE .COMPLEX Qty: 90 3RF Dose Instruction: TAKE 1 TABLET BY MOUTH EVERY DAY Rx Instructions: TAKE 1 TABLET BY MOUTH EVERY DAY cetirizine 10 mg tablet 10 mg PO DAILY Qty: 90 3RF tamsulosin 0.4 mg capsule See Rx Instructions .ROUTE .COMPLEX Qty: 14 0RF Dose Instruction: Take 1 capsule (0.4MG) orally daily Rx Instructions: Take 1 capsule (0.4MG) orally daily methylphenidate HCl 20 mg tablet See Rx Instructions PO TID Qty: 120 0RF Rx Instructions: 30 mg AM, 30 mg noon, 20 mg PM ondansetron HCl 4 mg tablet 4 mg PO Q8H PRN (Reason: nausea and vomiting) Qty: 10 0RF buprenorphine-naloxone [Suboxone] 8-2 mg film 1 film sublingual DAILY Label Comments: DISSOLVE 1/4 FILM UNDER THE TONGUE 4 times daily Referrals: Lang Clemente DO [Primary Care Provider] - Visit Report Forms: Patient Portal/API
[2022-01-12] MEDS: TRAMADOL 50 MG PREPACK 1 BOTTLE MISC (00:21)
[2022-01-12] MEDS: BACITRACIN OINT 0.9 GM PCKT 1 APPLIC TOP (00:21)
== END 2022-01-12 01:02 | disposition home or self-care (01) ==
PROVIDERS: Emergency Provider Emergency Medicine; PCP Family Medicine
DX: S61.212A Laceration without foreign body of right middle finger without damage to nail, initial encounter (principal); W45.8XXA Other foreign body or object entering through skin, initial encounter
CPT/HCPCS: 99282

== ENCOUNTER 2022-01-19 10:25 | Emergency (ER) | payer OTHER, MEDICAID, SELFPAY ==
[2022-01-19 10:39] VITALS: BP 141/97; PULSE 64; RESP 16; TEMP 35.7; O2SAT 97; BMI 25.1
[2022-01-19] MEDS: ONDANSETRON 4 MG/2 ML INJ IV ×2 (12:04→13:55)
[2022-01-19 12:10] LABS: Add Manual Diff / Slide Review NO; Basophils Absolute Auto 0 /uL (0-100); Basophils Percent Auto 0.4 % (0-2); Eosinophils Absolute Auto 200 /uL (0-450); Eosinophils Percent Auto 1.9 % (2-4); Hematocrit 39.6 % (36-46); Hemoglobin 13.5 g/dL (12.0-16.0); Lymphocytes Absolute Auto 1600 /uL (1100-4500); Lymphocytes Percent Auto 17.9 % (25-40); Mean Corpuscular Hemoglobin 27.3 PG (26-34); Mean Corpuscular Volume 80.1 fL (80-100); Monocytes Absolute Auto 500 /uL (0-900); Monocytes Percent Auto 5.2 % (3-14); Neutrophils Absolute Auto 6700 /uL (1500-7000); Neutrophils Percent Auto 74.6 % (50-75); Platelet Count 198 X10^3/uL (150-400); Red Blood Cell Count 4.94 X10^6/uL (4.0-5.2); Red Cell Distribution Width 13.5 % (11.6-14.8); White Blood Cell Count 8.9 X10^3/uL (4.5-11.0)
--- NOTE | 2022-01-19 12:14 | DI.CT.S_ITS ---
PROCEDURE: CT ABDOMEN PELVIS W CON INDICATIONS: ?kidney stones TECHNIQUE: After the administration of IV contrast, axial sections were acquired from the lung bases to the pubic symphysis. Coronal and sagittal reformats were performed. For radiation dose reduction, the following was used: automated exposure control, adjustment of mA and/or kV according to patient size. COMPARISON: [facility], CT, CT CHEST ABD PEL W CON, 07/31/2021, 10:57. FINDINGS: Image quality: Excellent. Lung bases: Unremarkable. Heart: No significant findings. ABDOMEN: Liver: Liver is enlarged measuring 19.4 cm with minimal steatosis. Gallbladder: Removed. Biliary ducts: Common bile duct measures 1 cm, unchanged. Pancreas: Unremarkable. Spleen: Unremarkable. Adrenal Glands: Unremarkable. Kidneys and Ureters: There is moderate right hydronephrosis and proximal hydroureter. 4 mm calcification is present in the proximal ureter with periureteral stranding. Hounsfield units measure approximately 411. Stomach and Bowel: Stomach, small bowel loops, and colon are unremarkable. Peritoneum: No abnormal intraperitoneal fluid. No free air. Ventral Wall: No hernia. Abdominal Nodes: No retroperitoneal or mesenteric adenopathy by size criteria. Vessels: Aorta and inferior vena cava are normal in size. PELVIS: Pelvic Organs: Unremarkable. Bladder: Unremarkable. Pelvic Nodes: No enlarged lymph nodes. Miscellaneous: No inguinal hernias are seen. Bones: Unremarkable. IMPRESSION: Moderate right hydronephrosis and hydroureter with proximal obstructing right ureteral calculus. Dictated by: Tati Foy M.D. on 01/19/2022 at 13:02 Approved by: Tati Foy M.D. on 01/19/2022 at 13:04
[2022-01-19 12:22] LABS: Alanine Aminotransferase 23 IU/L (<35); Albumin Globulin Ratio 1.2 (1.0-2.8); Alkaline Phosphatase 82 U/L (38-126); Aspartate Aminotransferase 22 IU/L (14-36); BUN Creatinine Ratio 15.2 (6-22); Bilirubin Total 0.2 mg/dL (0.2-1.3); Blood Urea Nitrogen 10 mg/dL (7-17); Calcium 8.7 mg/dL (8.4-10.2); Carbon Dioxide 29 mmol/L (22-32); Chloride 105 mmol/L (98-107); Estimated Glomerular Filt Rate > 60 mL/min (>60); Globulin 3.4 g/dL (1.7-4.1); Glucose 122 mg/dL (70-100); HEMOLYSIS < 15 (0-50); Lipase 56 U/L (23-300); Potassium 3.7 mmol/L (3.4-5.1); Sodium 142 mmol/L (137-145); Total Protein 7.4 g/dL (6.3-8.2)
[2022-01-19] MEDS: KETOROLAC 30 MG/ML VIAL 15 MG IV (12:40)
[2022-01-19] MEDS: SODIUM CHLORIDE 0.9% 1,000 ML 1000 ML IV (12:40)
[2022-01-19] MEDS: MORPHINE 4 MG/ML INJ IV (13:55)
[2022-01-19 14:19] VITALS: BP 147/85; PULSE 85; RESP 18; O2SAT 99
[2022-01-19 14:45] VITALS: BP 115/75; PULSE 71
[2022-01-19 14:47] LABS: Bacteria Urine None Seen; Culture Indicated Urine Cult Not Indicated; RBC Urine 30-100/HPF (0-5/HPF); Squamous Epithelial Cell Urine 0-1 /HPF (0-5/HPF); WBC Urine None Seen (0-5/HPF)
--- NOTE | 2022-01-19 17:02 | ED.FEMALEGU ---
HPI - Female Genitourinary General Chief complaint: Urogenital-Female Stated complaint: Vomiting & severe painkidney stones per pt Time Seen by Provider: 01/19/22 12:04 Source: patient Mode of arrival: Ambulatory History of Present Illness HPI Narrative: 26-year-old female with a history of nephrolithiasis presents to the ED with 1 day of right-sided flank pain. Patient endorses nausea, vomiting. Patient denies fever, chills, chest pain, shortness of breath, dysuria, lightheadedness, dizziness, syncope. Patient endorses that her urine stream is very small when she tries to pee. Patient has a past history of kidney stones for which she has not required any interventions. 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 Patient also saw a urologist in the past. Related Data Home Medications Medication Instructions Recorded Confirmed buprenorphine 8 mg-naloxone 2 mg 1 film sublingual DAILY 06/17/21 06/17/21 sublingual film (Suboxone) Previous Rx's Medication Instructions Recorded ondansetron HCl 4 mg tablet 4 mg PO Q8H PRN nausea and 04/03/21 vomiting #10 tabs celecoxib 200 mg capsule (Celebrex) 200 mg PO DAILY #90 caps 06/10/21 drospirenone 3 mg-ethinyl 1 tab PO QDAY #84 tabs 08/04/21 estradiol 0.03 mg tablet (Shila (28)) albuterol sulfate 90 mcg/actuation 2 puff inhalation Q4-6H PRN 08/07/21 aerosol inhaler shortness of breath or wheezing #8.5 grams promethazine 12.5 mg tablet See Rx Instructions .Route 09/28/21 .COMPLEX #30 tabs escitalopram oxalate 10 mg tablet See Rx Instructions .Route 10/05/21 .COMPLEX #90 tabs propranolol 20 mg tablet See Rx Instructions .Route 10/16/21 .COMPLEX #180 tabs cetirizine 10 mg tablet 10 mg PO DAILY #90 tabs 11/12/21 valacyclovir 1 gram tablet See Rx Instructions .Route 11/12/21 .COMPLEX #90 tabs methylphenidate HCl 20 mg tablet See Rx Instructions PO TID #120 01/04/22 tabs tamsulosin 0.4 mg capsule See Rx Instructions .Route 01/15/22 .COMPLEX #14 caps ondansetron 4 mg disintegrating 4 mg PO Q8H PRN nausea and 01/19/22 tablet vomiting #30 tabs tamsulosin 0.4 mg capsule (Flomax) 0.4 mg PO BEDTIME 30 days #30 caps 01/19/22 Allergies Allergy/AdvReac Type Severity Reaction Status Date / Time amoxicillin [From AUGMENTIN] Allergy Intermediate Hives Verified 01/19/22 10:41 clavulanic acid Allergy Intermediate Hives Verified 01/19/22 10:41 [From AUGMENTIN] Penicillins [PENICILLINS] Allergy Unknown Hives Verified 01/19/22 10:41 vicryl AdvReac Intermediate Uncoded 10/22/21 17:01 dissolvable sutures AdvReac Unknown sutures Uncoded 10/07/21 09:53 come out intact prior to wound healing Review of Systems Review of Systems ROS Unobtainable: All systems reviewed & are unremarkable except as noted in HPI and below Constitutional Constitutional: Denies chills, Denies fatigue, Denies fever(s), Denies frequent falls, Denies lethargy and Denies weakness Eyes Eyes: Denies change in vision, Denies eye discharge, Denies irritation and Denies loss of vision ENT Ears, Nose, Mouth, and Throat: Denies change in voice, Denies dizziness, Denies neck pain, Denies sore throat and Denies throat swelling Cardiovascular Cardiovascular: Denies chest pain, Denies irregular heart rhythm, Denies lightheadedness, Denies palpitations, Denies dyspnea, Denies dyspnea on exertion and Denies orthopnea Respiratory Respiratory: Denies cough, Denies dyspnea, Denies dyspnea on exertion and Denies wheezing Gastrointestinal Gastrointestinal: Denies abdominal pain, Denies change in bowel habits, Denies diarrhea, Reports nausea and Reports vomiting Genitourinary Genitourinary: Denies hematuria, Denies flank pain, Denies urinary incontinence and Denies urinary urgency Comments: R sided flank pain Musculoskeletal Musculoskeletal: Denies back pain, Denies muscle weakness, Denies neck pain, Denies numbness and Denies tingling Integumentary/Breasts Skin/Breast: Denies pruritus, Denies erythema, Denies rash and Denies wounds Neurologic Neurologic: Denies behavioral changes, Denies confusion, Denies dizziness, Denies frequent falls, Denies loss of vision, Denies numbness, Denies tingling and Denies weakness Psychiatric Psychiatric: Denies anxiety, Denies behavioral changes, Denies confusion, Denies depression, Denies homicidal ideation and Denies suicidal ideation Endocrine Endocrine: Denies fatigue, Denies flushing and Denies palpitations Hematologic/Lymphatic Hematologic/Lymphatic: Denies easy bruising Allergic/Immunologic Allergic/Immunologic: Denies urticaria, Denies throat swelling and Denies wheezing Patient History Medical History Acne Acute right flank pain Allergic to dogs Asthma Bilateral hand pain Coccydynia Degeneration of intervertebral disc at L5-S1 level Drug use disorder (08/25/16) Facet arthropathy, lumbar Facet arthropathy, lumbosacral GERD (gastroesophageal reflux disease) H pylori ulcer Hematuria without proteinuria History of kidney stones History of nephrolithiasis History of UTI Lymphadenopathy Migraine with aura Nephrolithiasis Opioid use disorder Reaction of skin due to suture material Unexplained night sweats Surgical History H/O nasal septoplasty Family History Brother Scoliosis Mother Bulging discs Kidney stones UTI (urinary tract infection) Mother No problems noted. alcohol intake frequency: holidays/special occasions only Substance Use Type: does not use Exam Narrative Exam Narrative: Const General:?cooperative, healthy appearing and comfortable [facility] Head:?normal to inspection Ears:?hearing grossly normal bilaterally Nose:?external nose normal Face and sinus:?normal facial exam and sinuses nontender Mouth:?oral mucosae normal Throat:?posterior oropharynx normal Eyes General:?appearance normal, both eyes and all related structures Neck Neck:?normal visual inspection and no lymphadenopathy noted Resp Effort & Inspection:?normal respiratory effort Auscultation:?clear to auscultation bilaterally Cardio Rate:?regular rate Rhythm:?regular rhythm GI Abdomen is soft, nondistended, nontender to palpation. Significance right sided CVA tenderness. Neuro General:?patient alert, patient awake and patient oriented x3 Initial Vital Signs Initial Vital Signs: Vital Signs Temperature 96.3 F L 01/19/22 10:39 Pulse Rate 64 01/19/22 10:39 Respiratory Rate 16 01/19/22 10:39 Blood Pressure 141/97 H 01/19/22 10:39 Pulse Oximetry 97 01/19/22 10:39 Oxygen Delivery Method 01/19/22 10:39 Course Orders Ordered: Discontinued Medications Sodium Chloride (Normal Saline 0.9%) 1,000 mls @ 1,000 mls/hr IV BOLUS ONE Stop: 01/19/22 13:13 Last Infusion: 01/19/22 13:50 Dose: 0 mls/hr Documented By: Admin: 01/19/22 12:40 Dose: 1,000 mls/hr Documented By: LINDA Ketorolac Tromethamine (Ketorolac 30 Mg/Ml Vial) 15 mg IV NOW ONE Stop: 01/19/22 12:09 Last Admin: 01/19/22 12:40 Dose: 15 mg Documented By: LINDA Morphine Sulfate (Morphine 4 Mg/Ml Inj) 4 mg IV NOW ONE Stop: 01/19/22 13:50 Last Admin: 01/19/22 13:55 Dose: 4 mg Documented By: LINDA Ondansetron HCl (Ondansetron 4 Mg/2 Ml Inj) 4 mg IV NOW ONE Stop: 01/19/22 11:53 Last Admin: 01/19/22 12:04 Dose: 4 mg Documented By: BERNY Ondansetron HCl (Ondansetron 4 Mg/2 Ml Inj) 4 mg IV NOW ONE Stop: 01/19/22 12:49 Last Admin: 01/19/22 13:55 Dose: 4 mg Documented By: LINDA Vital Signs Vital signs: Vital Signs - 8 hr 01/19/22 10:39 01/19/22 14:19 01/19/22 14:45 Temperature 96.3 F L Pulse Rate 64 85 71 Respiratory Rate 16 18 Blood Pressure 141/97 H 147/85 H 115/75 Pulse Oximetry 97 99 Oxygen Delivery Method Room Air Room Air MDM - Female Genitourinary Lab Data Result diagrams: 01/19/22 12:00 01/19/22 12:00 Labs: Lab Results 01/19/22 01/19/22 01/19/22 Range/Units 12:00 12:00 14:16 WBC 8.9 (4.5-11.0) X10^3/uL RBC 4.94 (4.0-5.2) X10^6/uL Hgb 13.5 (12.0-16.0) g/dL Hct 39.6 (36-46) % MCV 80.1 (80-100) fL MCH 27.3 (26-34) PG MCHC 34.0 (30-36) % RDW 13.5 (11.6-14.8) % Plt Count 198 (150-400) X10^3/uL Neut % (Auto) 74.6 (50-75) % Lymph % (Auto) 17.9 L (25-40) % Walker % (Auto) 5.2 (3-14) % Eos % (Auto) 1.9 L (2-4) % Baso % (Auto) 0.4 (0-2) % Neut # (Auto) 6700 (3500-0057) /uL Lymph # (Auto) 1600 (0322-0237) /uL Walker # (Auto) 500 (0-900) /uL Eos # (Auto) 200 (0-450) /uL Baso # (Auto) 0 (0-100) /uL Sodium 142 (137-145) mmol/L Potassium 3.7 (3.4-5.1) mmol/L Chloride 105 (98-107) mmol/L Carbon Dioxide 29 (22-32) mmol/L BUN 10 (7-17) mg/dL Creatinine 0.66 (0.52-1.04) mg/dL Estimated GFR > 60 (>60) mL/min BUN/Creatinine Ratio 15.2 (6-22) Glucose 122 H (70-100) mg/dL Calcium 8.7 (8.4-10.2) mg/dL Total Bilirubin 0.2 (0.2-1.3) mg/dL AST 22 (14-36) IU/L ALT 23 (<35) IU/L Alkaline Phosphatase 82 (38-126) U/L Total Protein 7.4 (6.3-8.2) g/dL Albumin 4.0 (3.5-5.0) g/dL Globulin 3.4 (1.7-4.1) g/dL Albumin/Globulin Ratio 1.2 (1.0-2.8) Lipase 56 (23-300) U/L Urine RBC 30-100/hpf H (0-5/HPF) Urine WBC None seen (0-5/HPF) Ur Squamous Epith Cells 0-1 /hpf (0-5/HPF) Urine Bacteria None seen (None) Ur Culture Indicated? Cult not indicated Point of Care Testing Test Results Negative Urine Dip Bedside Urine Glucose Negative Bedside Urine Bilirubin - Negative Bedside Urine Ketone - Negative Urine Specific [place] 1.010 Bedside Urine Occult Blood +++ Bedside Urine pH 6.5 Bedside Urine Protein - Negative Bedside Urine Urobilinogen - Negative Bedside Urine Nitrite - Negative Bedside Urine Leukocytes - Negative Esterase Imaging Data CT scan - abdomen/pelvis: Radiologist's Impression: PROCEDURE:? CT ABDOMEN PELVIS W CON ? INDICATIONS:? ?kidney stones ? TECHNIQUE:? After the administration of IV contrast, axial sections were acquired from the lung bases to the pubic symphysis.? Coronal and sagittal reformats were performed.? For radiation dose reduction, the following was used:? automated exposure control, adjustment of mA and/or kV according to patient size. ? COMPARISON:? [facility], CT, CT CHEST ABD PEL W CON, 07/31/2021, 10:57. ? FINDINGS:? Image quality:? Excellent.? ? Lung bases:? Unremarkable.? ? Heart:? No significant findings. ? ? ABDOMEN: Liver:? Liver is enlarged measuring 19.4 cm with minimal steatosis. Gallbladder:? Removed.? Biliary ducts:? Common bile duct measures 1 cm, unchanged.? ? Pancreas:? Unremarkable.? ? Spleen:? Unremarkable.? ? Adrenal Glands:? Unremarkable.? ? Kidneys and Ureters:? There is moderate right hydronephrosis and proximal hydroureter.? 4 mm calcification is present in the proximal ureter with periureteral stranding.? Hounsfield units measure approximately 411. ? Stomach and Bowel:? Stomach, small bowel loops, and colon are unremarkable.? Peritoneum:? No abnormal intraperitoneal fluid.? No free air.? ? Ventral Wall: ? No hernia.? Abdominal Nodes:? No retroperitoneal or mesenteric adenopathy by size criteria.? Vessels:? Aorta and inferior vena cava are normal in size.? ? PELVIS: Pelvic Organs:? Unremarkable.? ? Bladder:? Unremarkable.? ? Pelvic Nodes: No enlarged lymph nodes.? Miscellaneous: No inguinal hernias are seen. ? ? ? Bones:? Unremarkable.? IMPRESSION:? ? Moderate right hydronephrosis and hydroureter with proximal obstructing right ureteral calculus. ? ? Dictated by: Tati Foy M.D. on 01/19/2022 at 13:02 ? ? Approved by: Tati Foy M.D. on 01/19/2022 at 13:04 ? [facility] Narrative Medical decision making narrative: 26-year-old female with a history of nephrolithiasis presents to the ED with 1 day of right-sided flank pain. Concern for nephrolithiasis versus UTI versus appendicitis versus other intra-abdominal pathology. Will obtain labs, UA, lactate, lipase, CT abdomen pelvis. Will give ketorolac for pain control, Zofran for nausea. Will give IV fluids Pain was not adequately controlled with ketorolac. Patient was given morphine, pain was well controlled. CT shows right-sided 4 mm obstructing stone in the proximal ureter. UA shows occult blood, however not infected. Patient's pain was controlled with morphine, nausea well controlled with Zofran. Patient is on Suboxone. Patient discharged home with prescription for tamsulosin, Zofran. Patient will follow-up with [facility], PCP for continued pain control. Patient will keep appointment with nephrology for follow-up. ED return precautions were discussed with patient. Patient verbalized understanding. Discharge Plan Departure Patient Disposition: Home Clinical Impression: Nephrolithiasis Instructions: DI for Kidney Stones Activity Restrictions/Additional Instructions: You were evaluated in the ED today for right I did flank. Your CT abdomen pelvis shows a 4 mm proximal, obstructing kidney stone, which is the likely cause of your symptoms. Your urinalysis was normal, labs were normal. Most stones less than 5 mm in size have a high probability of passing spontaneously. You have been prescribed tamsulosin to speed up passage of the stone, which you will take once prior to bed. You can take Celebrex, Tylenol and Zofran for pain and nausea. You have a Nephrology appointment for next week, please keep that appointment. In the meanwhile, if you are uncontrollably vomiting, unable to keep down solids and fluids, are unable to control pain, have a fever or chills, please return to the ED. Prescriptions: New tamsulosin [Flomax] 0.4 mg capsule 0.4 mg PO BEDTIME 30 Days Qty: 30 0RF ondansetron 4 mg tablet,disintegrating 4 mg PO Q8H PRN (Reason: nausea and vomiting) Qty: 30 0RF No Action celecoxib [Celebrex] 200 mg capsule 200 mg PO DAILY Qty: 90 2RF drospirenone-ethinyl estradiol [Shila (28)] 3-0.03 mg tablet 1 tab PO QDAY Qty: 84 1RF albuterol sulfate 90 mcg/actuation HFA aerosol inhaler 2 puff inhalation Q4-6H PRN (Reason: shortness of breath or wheezing) Qty: 8.5 11RF promethazine 12.5 mg tablet See Rx Instructions .ROUTE .COMPLEX Qty: 30 0RF Dose Instruction: TAKE ONE TABLET BY MOUTH EVERY SIX HOURS NEEDED FOR HEADACHE Rx Instructions: TAKE ONE TABLET BY MOUTH EVERY SIX HOURS NEEDED FOR HEADACHE escitalopram oxalate 10 mg tablet See Rx Instructions .ROUTE .COMPLEX Qty: 90 2RF Dose Instruction: TAKE ONE TABLET BY MOUTH ONE TIME DAILY Rx Instructions: TAKE ONE TABLET BY MOUTH ONE TIME DAILY propranolol 20 mg tablet See Rx Instructions .ROUTE .COMPLEX Qty: 180 3RF Dose Instruction: TAKE 1 TABLET BY MOUTH TWICE DAILY Rx Instructions: TAKE 1 TABLET BY MOUTH TWICE DAILY valacyclovir 1 gram tablet See Rx Instructions .ROUTE .COMPLEX Qty: 90 3RF Dose Instruction: TAKE 1 TABLET BY MOUTH EVERY DAY Rx Instructions: TAKE 1 TABLET BY MOUTH EVERY DAY cetirizine 10 mg tablet 10 mg PO DAILY Qty: 90 3RF methylphenidate HCl 20 mg tablet See Rx Instructions PO TID Qty: 120 0RF Rx Instructions: 30 mg AM, 30 mg noon, 20 mg PM tamsulosin 0.4 mg capsule See Rx Instructions .ROUTE .COMPLEX Qty: 14 1RF Dose Instruction: Take 1 capsule (0.4MG) orally daily Rx Instructions: Take 1 capsule (0.4MG) orally daily ondansetron HCl 4 mg tablet 4 mg PO Q8H PRN (Reason: nausea and vomiting) Qty: 10 0RF buprenorphine-naloxone [Suboxone] 8-2 mg film 1 film sublingual DAILY Label Comments: DISSOLVE 1/4 FILM UNDER THE TONGUE 4 times daily Referrals: Lang Clemente DO [Primary Care Provider] - Visit Report Forms: Patient Portal/API
== END 2022-01-19 14:46 | disposition home or self-care (01) ==
PROVIDERS: Family Medicine Addiction Medicine; Emergency Provider Student in an Organized Health Care Education/Training Program; PCP Family Medicine
DX: N20.0 Calculus of kidney (principal); R11.2 Nausea with vomiting, unspecified; Z87.442 Personal history of urinary calculi
CPT/HCPCS: 36415; 74177; 80053; 81003; 81015; 81025; 83690; 85025; 96361; 96374; 96375; 96376; 99284; J1885; J2270; J2405

== ENCOUNTER 2022-03-05 19:21 | Emergency (ER) | payer OTHER, MEDICAID, SELFPAY ==
[2022-03-05 19:47] VITALS: BP 146/73; PULSE 86; RESP 20; TEMP 36.6; O2SAT 100; BMI 26.6
--- NOTE | 2022-03-05 21:05 | DI.CT.S_ITS ---
PROCEDURE: CT KIDNEY URETER BLADDER (KUB) INDICATIONS: concerned still stone TECHNIQUE: Axial sections were acquired from the lung bases to the pubic symphysis. Coronal and sagittal reformats were performed. For radiation dose reduction, the following was used: automated exposure control, adjustment of mA and/or kV according to patient size. COMPARISON: [facility], CT, CT ABDOMEN PELVIS W CON, 01/19/2022, 12:27. [facility], CT, CT KIDNEY URETER BLADDER (KUB), 01/31/2020, 21:37. FINDINGS: Image quality: Excellent. Lung bases: There is minimal atelectasis. Heart: Heart is normal in size. URINARY: Right Kidney and Ureter: No stones or hydronephrosis. No hydroureter. Left Kidney and Ureter: No stones or hydronephrosis. No hydroureter. Bladder: There is partial distention of the urinary bladder with mild wall thickening and perivesicular fat stranding. A dependent stone is demonstrated in the bladder adjacent to the right ureterovesicular junction, measuring up to 0.5 cm. ABDOMEN: Liver: Noncontrast evaluation of the liver demonstrates no discrete mass. Gallbladder: Within normal limits without calcified gallstones. Biliary ducts: No biliary ductal dilatation. Pancreas: Unremarkable. Spleen: Normal in size. Adrenal Glands: No adrenal nodules. Stomach and Bowel: Stomach, small bowel loops, and colon are normal in caliber and wall thickness. The appendix is normal in appearance. Peritoneum: No abnormal intraperitoneal fluid. No free air. Ventral Wall: No hernia. Abdominal Nodes: No retroperitoneal or mesenteric adenopathy by size criteria. Vessels: Aorta and inferior vena cava are normal in size. PELVIS: Pelvic Organs: Unremarkable. Pelvic Nodes: No enlarged lymph nodes. Miscellaneous: No inguinal hernias identified. Bones: Visualized osseous structures demonstrate no suspicious focal lesions. IMPRESSION: 1. No nephrolithiasis or hydronephrosis. 2. Concentric bladder wall thickening with mild associated fat stranding suggestive of a cystitis. Recommend correlation with urinalysis. 3. Dependent stone in the urinary bladder adjacent to the UVJ suggestive of a recently passed stone. Dictated by: Wilder Salmeron M.D. on 03/05/2022 at 22:23 Approved by: Wilder Salmeron M.D. on 03/05/2022 at 22:27
[2022-03-05 21:39] LABS: Add Manual Diff / Slide Review NO; Basophils Absolute Auto 0 /uL (0-100); Basophils Percent Auto 0.3 % (0-2); Eosinophils Absolute Auto 100 /uL (0-450); Eosinophils Percent Auto 1.2 % (2-4); Hematocrit 38.6 % (36-46); Hemoglobin 13.3 g/dL (12.0-16.0); Lymphocytes Absolute Auto 2500 /uL (1100-4500); Lymphocytes Percent Auto 27.7 % (25-40); Mean Corpuscular HGB Conc 34.5 % (30-36); Mean Corpuscular Hemoglobin 27.4 PG (26-34); Mean Corpuscular Volume 79.5 fL (80-100); Monocytes Absolute Auto 400 /uL (0-900); Monocytes Percent Auto 4.8 % (3-14); Neutrophils Absolute Auto 5900 /uL (1500-7000); Platelet Count 221 X10^3/uL (150-400); Red Blood Cell Count 4.86 X10^6/uL (4.0-5.2); Red Cell Distribution Width 13.2 % (11.6-14.8); White Blood Cell Count 8.9 X10^3/uL (4.5-11.0)
[2022-03-05 21:50] LABS: Alanine Aminotransferase 24 IU/L (<35); Albumin Globulin Ratio 1.2 (1.0-2.8); Alkaline Phosphatase 86 U/L (38-126); Aspartate Aminotransferase 36 IU/L (14-36); BUN Creatinine Ratio 13.1 (6-22); Bilirubin Total 0.5 mg/dL (0.2-1.3); Blood Urea Nitrogen 8 mg/dL (7-17); Carbon Dioxide 26 mmol/L (22-32); Chloride 103 mmol/L (98-107); Creatine Kinase 36 U/L (30-135); Estimated Glomerular Filt Rate > 60 mL/min (>60); Globulin 3.4 g/dL (1.7-4.1); Glucose 113 mg/dL (70-100); HEMOLYSIS < 15 (0-50); Lipase 38 U/L (23-300); Sodium 139 mmol/L (137-145); Total Protein 7.4 g/dL (6.3-8.2)
[2022-03-05 22:02] LABS: Troponin I < 0.012 ng/mL (0.01-0.034)
--- NOTE | 2022-03-05 23:28 | ED_ITS ---
HPI - Female Genitourinary General Chief complaint: Urogenital-Female Stated complaint: States kidney stone, cant urinate Time Seen by Provider: 03/05/22 21:05 Source: patient Mode of arrival: Ambulatory Limitations: no limitations History of Present Illness HPI Narrative: This is a 27-year-old female history of multiple kidney stones, patient states she is currently on Flomax, Tylenol and Celebrex as her only prescription medications. She states she had a stone diagnosed in the last month which was on the right 4 mm she is had persistent right flank pain although it had gotten better got much worse a couple days ago then she felt like hot bernal in her bladder and pain somewhat improved but she is had persistent dysuria, sense of urgency, frequency and incomplete emptying. Patient states her urine now has a bit of an odor it is become cloudy and darker different from when she normally has blood in it. She states she is had some fevers she describes a 104 F fever Tuesday or Tuesday, none persisting but she states she has been taking Tylenol. She is had nausea but has been taking Zofran she is only occasionally vomited but not regularly and is tolerating orals and fluids overall. She is stooling regularly. Patient states both sides kind of hurt but more on the right. Patient notes that she has had urine issues in the past. When asked she states she has had a little bit of chest pain she describes it as substernal, occasional intermittent no radiation. Denies shortness of breath. No franchesca phoresis. She denies surgeries, no lithotripsies or other interventions. She is allergic to Vicryl, states she gets hives with amoxicillin and penicillin. Denies tobacco use, denies alcohol or illicit. Related Data Home Medications Medication Instructions Recorded Confirmed buprenorphine 8 mg-naloxone 2 mg 1 film sublingual DAILY 06/17/21 06/17/21 sublingual film (Suboxone) Previous Rx's Medication Instructions Recorded pantoprazole 40 mg tablet,delayed 40 mg PO QDAY ##90 02/25/16 release ondansetron HCl 4 mg tablet 4 mg PO Q8H PRN nausea and 04/03/21 vomiting #10 tabs celecoxib 200 mg capsule (Celebrex) 200 mg PO DAILY #90 caps 06/10/21 albuterol sulfate 90 mcg/actuation 2 puff inhalation Q4-6H PRN 08/07/21 aerosol inhaler shortness of breath or wheezing #8.5 grams promethazine 12.5 mg tablet See Rx Instructions .Route 09/28/21 .COMPLEX #30 tabs escitalopram oxalate 10 mg tablet See Rx Instructions .Route 10/05/21 .COMPLEX #90 tabs propranolol 20 mg tablet See Rx Instructions .Route 10/16/21 .COMPLEX #180 tabs cetirizine 10 mg tablet 10 mg PO DAILY #90 tabs 11/12/21 valacyclovir 1 gram tablet See Rx Instructions .Route 11/12/21 .COMPLEX #90 tabs tamsulosin 0.4 mg capsule See Rx Instructions .Route 01/15/22 .COMPLEX #14 caps ondansetron 4 mg disintegrating 4 mg PO Q8H PRN nausea and 01/19/22 tablet vomiting #30 tabs drospirenone 3 mg-ethinyl 1 tab PO QDAY #84 tabs 02/01/22 estradiol 0.03 mg tablet (Shila (28)) methylphenidate HCl 20 mg tablet See Rx Instructions PO TID #120 03/03/22 tabs ondansetron HCl 4 mg tablet 4 mg PO Q6H PRN nausea and 03/05/22 vomiting #5 tabs phenazopyridine 200 mg tablet 200 mg PO TID PRN pain 6 doses #6 03/05/22 (Pyridium) tabs sulfamethoxazole 800 1 tab PO BID 10 days #20 tabs 03/05/22 mg-trimethoprim 160 mg tablet (Bactrim DS) Allergies Allergy/AdvReac Type Severity Reaction Status Date / Time amoxicillin [From AUGMENTIN] Allergy Intermediate Hives Verified 03/05/22 21:30 clavulanic acid Allergy Intermediate Hives Verified 03/05/22 21:30 [From AUGMENTIN] Penicillins [PENICILLINS] Allergy Unknown Hives Verified 03/05/22 21:30 vicryl AdvReac Intermediate Uncoded 10/22/21 17:01 dissolvable sutures AdvReac Unknown sutures Uncoded 10/07/21 09:53 come out intact prior to wound healing Review of Systems Review of Systems ROS Unobtainable: All systems reviewed & are unremarkable except as noted in HPI and below Patient History Medical History Acne Acute right flank pain Allergic to dogs Asthma Bilateral hand pain Coccydynia Degeneration of intervertebral disc at L5-S1 level Drug use disorder (08/25/16) Facet arthropathy, lumbar Facet arthropathy, lumbosacral GERD (gastroesophageal reflux disease) H pylori ulcer Hematuria without proteinuria History of kidney stones History of nephrolithiasis History of UTI Lymphadenopathy Migraine with aura Nephrolithiasis Opioid use disorder Reaction of skin due to suture material Unexplained night sweats Surgical History H/O nasal septoplasty Family History Brother Scoliosis Mother Bulging discs Kidney stones UTI (urinary tract infection) Mother No problems noted. alcohol intake frequency: holidays/special occasions only Substance Use Type: does not use Exam Narrative Exam Narrative: GENERAL: Alert and oriented x three, mild distress. HEENT: Head normocephalic, atraumatic, EOMI, pupils reactive, face symmetric, moist mucous membranes NECK: Supple, full range of motion CARDIOVASCULAR: Regular rate and rhythm without murmurs, rubs or gallops. RESPIRATORY: Breath sounds equal bilaterally, no wheezes rales or rhonchi. ABDOMEN: Soft, nontender. Nondistended. Normoactive bowel sounds all 4 quadrants. No guarding or rebound, rigidity, no mass : Right CVA tenderness, no left CVA tenderness. EXTREMITIES: Normal range of motion, no clubbing or edema. Neurovascularly intact NEUROLOGICAL: Cranial nerves II through XII grossly intact. Moving all extremities SKIN: Warm, dry, no petechiae, no rashes or lesions. Initial Vital Signs Initial Vital Signs: Vital Signs Temperature 97.9 F 03/05/22 19:47 Pulse Rate 86 03/05/22 19:47 Respiratory Rate 20 03/05/22 19:47 Blood Pressure 146/73 H 03/05/22 19:47 Pulse Oximetry 100 03/05/22 19:47 Oxygen Delivery Method 03/05/22 19:47 Course Orders Ordered: ED Orders 03/05/22 21:05 CT kidney ureter bladder (KUB) Stat 03/05/22 21:29 CBC Auto Diff [Complete Blood Count AUTO DIFF] Stat CMP [Comprehensive Metabolic Panel] Stat Lipase Stat Troponin & CK Cardiac Panel Stat 03/05/22 22:20 Urine Culture Stat Urine Microscopic Stat Discontinued Medications Ondansetron HCl (Ondansetron 4 Mg/2 Ml Inj) 4 mg IV NOW PRN PRN Reason: Nausea And Vomiting Ondansetron HCl (Ondansetron 4 Mg Odt) 4 mg SL NOW PRN PRN Reason: Nausea And Vomiting Last Admin: 03/06/22 00:03 Dose: 4 mg Documented By: ARSEN Phenazopyridine HCl (Phenazopyridine 100 Mg Tablet) 100 mg PO NOW ONE Stop: 03/05/22 23:43 Last Admin: 03/06/22 00:01 Dose: 100 mg Documented By: ARSEN Trimethoprim/Sulfamethoxazole (Trimeth/Sulfa 160/800 (Ds) Tablet) 1 tab PO NOW ONE Stop: 03/05/22 23:43 Last Admin: 03/06/22 00:00 Dose: 1 tab Documented By: ARSEN Vital Signs Vital signs: Vital Signs - 8 hr 03/05/22 19:47 Temperature 97.9 F Pulse Rate 86 Respiratory Rate 20 Blood Pressure 146/73 H Pulse Oximetry 100 Oxygen Delivery Method Room Air MDM - Female Genitourinary Lab Data Result diagrams: 03/05/22 21:29 03/05/22 21:29 Labs: Lab Results 03/05/22 03/05/22 03/05/22 Range/Units 21:29 21:29 22:20 WBC 8.9 (4.5-11.0) X10^3/uL RBC 4.86 (4.0-5.2) X10^6/uL Hgb 13.3 (12.0-16.0) g/dL Hct 38.6 (36-46) % MCV 79.5 L (80-100) fL MCH 27.4 (26-34) PG MCHC 34.5 (30-36) % RDW 13.2 (11.6-14.8) % Plt Count 221 (150-400) X10^3/uL Neut % (Auto) 66.0 (50-75) % Lymph % (Auto) 27.7 (25-40) % Kinney % (Auto) 4.8 (3-14) % Eos % (Auto) 1.2 L (2-4) % Baso % (Auto) 0.3 (0-2) % Neut # (Auto) 5900 (7935-1408) /uL Lymph # (Auto) 2500 (3975-2524) /uL Kinney # (Auto) 400 (0-900) /uL Eos # (Auto) 100 (0-450) /uL Baso # (Auto) 0 (0-100) /uL Sodium 139 (137-145) mmol/L Potassium 4.0 (3.4-5.1) mmol/L Chloride 103 (98-107) mmol/L Carbon Dioxide 26 (22-32) mmol/L BUN 8 (7-17) mg/dL Creatinine 0.61 (0.52-1.04) mg/dL Estimated GFR > 60 (>60) mL/min BUN/Creatinine Ratio 13.1 (6-22) Glucose 113 H (70-100) mg/dL Calcium 9.0 (8.4-10.2) mg/dL Total Bilirubin 0.5 (0.2-1.3) mg/dL AST 36 (14-36) IU/L ALT 24 (<35) IU/L Alkaline Phosphatase 86 (38-126) U/L Total Creatine Kinase 36 (30-135) U/L CK-MB (CK-2) TNP CK-MB (CK-2) Rel Index TNP Troponin I < 0.012 (0.01-0.034) ng/mL Total Protein 7.4 (6.3-8.2) g/dL Albumin 4.0 (3.5-5.0) g/dL Globulin 3.4 (1.7-4.1) g/dL Albumin/Globulin Ratio 1.2 (1.0-2.8) Lipase 38 (23-300) U/L Urine RBC 1-5/hpf D (0-5/HPF) Urine WBC 30-100/hpf H (0-5/HPF) Urine Bacteria Many (>30) H (None) Micro UA Comment * Point of Care Testing Test Results Negative Urine Dip Bedside Urine Glucose Negative Bedside Urine Bilirubin - Negative Bedside Urine Ketone - Negative Urine Specific [place] 1.015 Bedside Urine Occult Blood ++ Bedside Urine pH 6.5 Bedside Urine Protein + 30 Bedside Urine Urobilinogen - Negative Bedside Urine Nitrite - Negative Bedside Urine Leukocytes + [address] scan - abdomen/pelvis: Radiologist's Impression: Clara Mahmood??27??F??1995 ? Allergy/Adv: amoxicillin, clavulanic acid, Penicillins, [vicryl], [dissolvable sutures] (More??) Close Abdomen/Pelvis CT (Signed) Wilder Salmeron - 03/05/22 Abdomen/Pelvis CT (Signed) Tati Foy - 01/19/22 Chest/Abdomen/Pelvis CT (Signed) Jovany Vazquez - 07/31/21 Outside DI 07/03/21 Telemetry Strips 05/19/[address] (Signed) Jake Eller - 04/21/21 Head/Neck Ultrasound (Addendum) Amina De La Rosa - 03/19/21 Abdomen Ultrasound (Signed) Mich Walton - 02/10/21 Thyroid Ultrasound (Signed) Jovany Vazquez - 01/13/21 KUB X-Ray (Signed) Amina De La Rosa - 09/09/20 Abdomen/Pelvis CT (Signed) Radha Hurley - 01/31/20 Renal Ultrasound (Signed) Landon Estevez - 01/23/20 Abdomen/Pelvis CT (Signed) Bonilla Ibrahim - 12/28/19 Facet Joint Injection X-Ray (Signed) Bonilla Ibrahim - 09/20/19 Lumbar Spine X-Ray (Signed) Tru Katz - 07/30/19 Lumbar Spine MRI (Signed) Tru Katz - 02/14/19 Launch?[place] [address] CT Scan Report Signed Patient: Clara Mahmood MR#: [id number] : 1995 Acct:[id number] Age/Sex: 27 / F Date of Service: 03/05/22 Loc: ED Accession Number: [id number] ?? Procedure: CT kidney ureter bladder (KUB) Ordering Provider: Karuna Duncan D.O. PROCEDURE:? CT KIDNEY URETER BLADDER (KUB) ? INDICATIONS:? concerned still stone ? TECHNIQUE:? Axial sections were acquired from the lung bases to the pubic symphysis.? Coronal and sagittal reformats were performed.? For radiation dose reduction, the following was used: ?automated exposure control, adjustment of mA and/or kV according to patient size.? ? COMPARISON:? [facility], CT, CT ABDOMEN PELVIS W CON, 01/19/2022, 12:27.? [facility], CT, CT KIDNEY URETER BLADDER (KUB), 01/31/2020, 21:37. ? FINDINGS:? Image quality:? Excellent.? ? Lung bases:? There is minimal atelectasis.? ? Heart:? Heart is normal in size. ? URINARY: Right Kidney and Ureter: ? No stones or hydronephrosis.? No hydroureter.? ? Left Kidney and Ureter: ? No stones or hydronephrosis.? No hydroureter. ? Bladder:? There is partial distention of the urinary bladder with mild wall thickening and perivesicular fat stranding.? A dependent stone is demonstrated in the bladder adjacent to the right ureterovesicular junction, measuring up to 0.5 cm. ? ABDOMEN: Liver:? Noncontrast evaluation of the liver demonstrates no discrete? mass. Gallbladder:? Within normal limits without calcified gallstones.? ? Biliary ducts:? No biliary ductal dilatation.? ? Pancreas:? Unremarkable.? ? Spleen:? Normal in size.? ? Adrenal Glands:? No adrenal nodules.? ? ? Stomach and Bowel:? Stomach, small bowel loops, and colon are normal in caliber and wall thickness.? The appendix is normal in appearance.? Peritoneum:? No abnormal intraperitoneal fluid.? No free air.? ? Ventral Wall: ? No hernia.? Abdominal Nodes:? No retroperitoneal or mesenteric adenopathy by size criteria.? Vessels:? Aorta and inferior vena cava are normal in size.? ? PELVIS: Pelvic Organs:? Unremarkable.? ? Pelvic Nodes: No enlarged lymph nodes.? Miscellaneous: No inguinal hernias identified. ? ? ? Bones:? Visualized osseous structures demonstrate no suspicious focal lesions. IMPRESSION:? ? 1. No nephrolithiasis or hydronephrosis. ? 2. Concentric bladder wall thickening with mild associated fat stranding suggestive of a cystitis.? Recommend correlation with urinalysis. ? 3. Dependent stone in the urinary bladder adjacent to the UVJ suggestive of a recently passed stone.? ? ? Dictated by: Wilder Salmeron M.D. on 03/05/2022 at 22:23 ? ? Approved by: Wilder Salmeron M.D. on 03/05/2022 at 22:27?? ECG Data Attestation: I personally reviewed and interpreted this ECG as follows: Interpretation: Sinus rhythm rate of 78 WV 116 QRS is [address]TC [address] No acute [address] elevation nonspecific change in 2 3 AVF. Patient has prior from 05/01/2014 lead 3 has some change but 2 and AVF do not on prior EKG. MDM Narrative Medical decision making narrative: This is a 27-year-old female who presents with complaint of urinary issues dysuria and urinary symptoms she still has some flank pain she did have a kidney stone today CT was obtained no longer has a stone she is not obstructed she describes fevers earlier this week she does have thickening of the bladder wall consistent with possible cystitis clinically she has, occasional vomiting but not persistent. Patient tolerated oral antibiotics in the department. Patient's urine is positive for leukocyte esterase, culture has been sent. Renal function, electrolytes and CBC did not show significant changes. She appears to have likely UTI or pyelonephritis, given Pyridium, Bactrim in the department and will continue as well as a refill of her Zofran. She states she is not on escitalopram currently or any other QT prolonging medications at this time. Patient did mention some chest pain, troponins negative EKG does not have dynamic changes there is some change in 2 3 AVF. She has a prior from 05/01/2014. Patient does not have other symptoms highly suggestive of ACS, PE or other acute event. Discharge Plan Departure Patient Disposition: Home Clinical Impression: Pyelonephritis Instructions: DI for Kidney Infection Activity Restrictions/Additional Instructions: Please follow-up for next week if symptoms are not improving. Take antibiotics until completely gone. You may take Zofran 1 tablet every 6 hours as needed for nausea You may take Pyridium 1 tablet every hours as needed for dysuria or burning with urination and sense of urgency. This medication will make your urine bright orange. Prescription sent [facility] in [place] Please return for worsening symptoms, rapidly worsening abdominal back or flank pain, persistent vomiting, persistent fevers, inability to urinate, black or bloody stools or other new or concerning changes. Prescriptions: New sulfamethoxazole-trimethoprim [Bactrim DS] 800-160 mg tablet 1 tab PO BID 10 Days Qty: 20 0RF phenazopyridine [Pyridium] 200 mg tablet 200 mg PO TID PRN (Reason: pain) Qty: 6 0RF ondansetron HCl 4 mg tablet 4 mg PO Q6H PRN (Reason: nausea and vomiting) Qty: 5 0RF No Action celecoxib [Celebrex] 200 mg capsule 200 mg PO DAILY Qty: 90 2RF albuterol sulfate 90 mcg/actuation HFA aerosol inhaler 2 puff inhalation Q4-6H PRN (Reason: shortness of breath or wheezing) Qty: 8.5 11RF promethazine 12.5 mg tablet See Rx Instructions .ROUTE .COMPLEX Qty: 30 0RF Dose Instruction: TAKE ONE TABLET BY MOUTH EVERY SIX HOURS NEEDED FOR HEADACHE Rx Instructions: TAKE ONE TABLET BY MOUTH EVERY SIX HOURS NEEDED FOR HEADACHE escitalopram oxalate 10 mg tablet See Rx Instructions .ROUTE .COMPLEX Qty: 90 2RF Dose Instruction: TAKE ONE TABLET BY MOUTH ONE TIME DAILY Rx Instructions: TAKE ONE TABLET BY MOUTH ONE TIME DAILY propranolol 20 mg tablet See Rx Instructions .ROUTE .COMPLEX Qty: 180 3RF Dose Instruction: TAKE 1 TABLET BY MOUTH TWICE DAILY Rx Instructions: TAKE 1 TABLET BY MOUTH TWICE DAILY valacyclovir 1 gram tablet See Rx Instructions .ROUTE .COMPLEX Qty: 90 3RF Dose Instruction: TAKE 1 TABLET BY MOUTH EVERY DAY Rx Instructions: TAKE 1 TABLET BY MOUTH EVERY DAY cetirizine 10 mg tablet 10 mg PO DAILY Qty: 90 3RF tamsulosin 0.4 mg capsule See Rx Instructions .ROUTE .COMPLEX Qty: 14 1RF Dose Instruction: Take 1 capsule (0.4MG) orally daily Rx Instructions: Take 1 capsule (0.4MG) orally daily drospirenone-ethinyl estradiol [Shila (28)] 3-0.03 mg tablet 1 tab PO QDAY Qty: 84 3RF pantoprazole 40 mg tablet,delayed release (DR/EC) 40 mg PO QDAY Qty: 90 3RF methylphenidate HCl 20 mg tablet See Rx Instructions PO TID Qty: 120 0RF Rx Instructions: 30 mg AM, 30 mg noon, 20 mg PM ondansetron HCl 4 mg tablet 4 mg PO Q8H PRN (Reason: nausea and vomiting) Qty: 10 0RF buprenorphine-naloxone [Suboxone] 8-2 mg film 1 film sublingual DAILY Label Comments: DISSOLVE 1/4 FILM UNDER THE TONGUE 4 times daily ondansetron 4 mg tablet,disintegrating 4 mg PO Q8H PRN (Reason: nausea and vomiting) Qty: 30 0RF Referrals: Lang Clemente DO [Primary Care Provider] - Visit Report Forms: Patient Portal/API
[2022-03-05 23:32] LABS: Bacteria Urine Many (>30); RBC Urine 1-5/HPF (0-5/HPF); WBC Urine 30-100/HPF (0-5/HPF)
[2022-03-06] MEDS: TRIMETH/SULFA 160/800 (DS) TABLET 1 TAB PO
[2022-03-06] MEDS: PHENAZOPYRIDINE 100 MG TABLET PO (00:01)
[2022-03-06] MEDS: ONDANSETRON 4 MG ODT SL (00:03)
== END 2022-03-06 00:12 | disposition home or self-care (01) ==
PROVIDERS: Emergency Provider Emergency Medicine; PCP Family Medicine
DX: N12 Tubulo-interstitial nephritis, not specified as acute or chronic (principal); R11.0 Nausea; R30.0 Dysuria; Z87.442 Personal history of urinary calculi
CPT/HCPCS: 36415; 74176; 80053; 81003; 81015; 81025; 82550; 83690; 84484; 85025; 87077; 87086; 87186; 93005; 99283; 99284

== ENCOUNTER → 2022-04-06 15:27 | Outpatient (CLI) | payer OTHER, MEDICAID, SELFPAY ==
[2022-04-06 21:06] LABS: Occult Blood 1 Negative (Negative)
== END ==
PROVIDERS: PCP Family Medicine; Referring Provider Family Medicine; Visit Provider Family Medicine
DX: K92.1 Melena (principal)
CPT/HCPCS: 82270

== ENCOUNTER → 2022-07-13 16:23 | Outpatient (CLI) | payer OTHER, MEDICAID, SELFPAY ==
[2022-07-13 19:14] LABS: Appearance Urine UA CLEAR; Bilirubin Urine UA NEGATIVE (NEGATIVE); Color Urine UA YELLOW; Glucose Urine UA NEGATIVE (Negative); Ketones Urine UA NEGATIVE (NEGATIVE); Leukocyte Esterase Urine UA NEGATIVE (NEGATIVE); Nitrite Urine UA NEGATIVE (Negative); Occult Blood Urine UA NEGATIVE (Negative); Protein Urine UA NEGATIVE (Negative); Specific Gravity Urine UA >=1.030 (1.000-1.035); Urobilinogen Urine UA 0.2 E.U./dL (0.2)
[2022-07-13 19:15] LABS: pH Urine UA 5.5 (4.5-8.0)
[2022-07-13 20:00] LABS: RBC Urine 0-1/HPF (0-5/HPF); Squamous Epithelial Cell Urine None Seen (0-5/HPF); WBC Urine 0-1/HPF (0-5/HPF)
[2022-07-13 20:01] LABS: Bacteria Urine Occasional (0-1); Calcium Oxalate Crystals Urine Occasional; Culture Indicated Urine Cult Not Indicated; Mucus Urine 1+ (Negative)
== END ==
PROVIDERS: PCP Family Medicine; Referring Provider Family Medicine; Visit Provider Family Medicine
DX: N30.01 Acute cystitis with hematuria (principal); R10.9 Unspecified abdominal pain
CPT/HCPCS: 81001

== ENCOUNTER 2022-07-30 17:39 | Emergency (ER) | payer OTHER, MEDICAID, SELFPAY ==
[2022-07-30 17:57] VITALS: BP 150/88; PULSE 90; RESP 17; TEMP 36.9; O2SAT 95
--- NOTE | 2022-07-30 20:38 | PC.NURSE ---
Pt calls via waiting room phone and reports chest pain that began approximately 30 minutes ago. Charge and provided aware.
[2022-07-30 20:50] VITALS: BP 164/90; PULSE 87; RESP 20; O2SAT 100
--- NOTE | 2022-07-30 23:17 | PC.NURSE ---
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 All this began at [address]. Pt follows Dr[address] Olive Gill at [facility] and Dr. Shafer.
--- NOTE | 2022-07-30 23:21 | PC.NURSE ---
Pt states she does not feel equal touch to both legs. Pt can feel touch to her left and right leg, but feels touch to left is less. Pt has strong pedal pulses bilaterally with cap refill less than 2 seconds in both feet.
== END 2022-07-31 01:55 | disposition left against medical advice (07) ==
PROVIDERS: Emergency Provider Emergency Medicine; PCP Family Medicine
DX: M54.9 Dorsalgia, unspecified (principal)
CPT/HCPCS: 93005; 99282

== ENCOUNTER → 2022-12-17 17:17 | Outpatient (CLI) | payer OTHER, MEDICAID, SELFPAY ==
--- NOTE | 2022-12-17 17:27 | DI.RAD.S_ITS ---
PROCEDURE: XR CHEST 2V INDICATIONS: edema, sob TECHNIQUE: 2 views of the chest were acquired. COMPARISON: None. FINDINGS: Surgical changes and devices: None. Lungs and pleura: Lungs are clear. No pleural effusions or pneumothorax. Mediastinum: Mediastinal contours are normal. Heart size is normal. Bones and chest wall: No suspicious bony abnormalities. Soft tissues appear unremarkable. IMPRESSION: 1. No acute cardiopulmonary disease. Dictated by: Wilder Salmeron M.D. on 12/17/2022 at 21:38 Approved by: Wilder Salmeron M.D. on 12/17/2022 at 21:38
[2022-12-17 18:32] LABS: Add Manual Diff / Slide Review NO; Basophils Absolute Auto 0 /uL (0-100); Basophils Percent Auto 0.4 % (0-2); Eosinophils Absolute Auto 200 /uL (0-450); Eosinophils Percent Auto 3.1 % (2-4); Hemoglobin 12.1 g/dL (12.0-16.0); Lymphocytes Absolute Auto 2900 /uL (1100-4500); Lymphocytes Percent Auto 52.7 % (25-40); Mean Corpuscular HGB Conc 34.5 % (30-36); Mean Corpuscular Volume 75.2 fL (80-100); Monocytes Absolute Auto 400 /uL (0-900); Monocytes Percent Auto 8.2 % (3-14); Neutrophils Absolute Auto 1900 /uL (1500-7000); Neutrophils Percent Auto 35.6 % (50-75); Platelet Count 245 X10^3/uL (150-400); Red Blood Cell Count 4.66 X10^6/uL (4.0-5.2); Red Cell Distribution Width 14.2 % (11.6-14.8); White Blood Cell Count 5.4 X10^3/uL (4.5-11.0)
[2022-12-17 18:45] LABS: Hemoglobin A1C% w Est Avg Glu 4.8 % (4.0-6.0)
[2022-12-17 18:53] LABS: Alanine Aminotransferase 16 IU/L (<35); Albumin 3.5 g/dL (3.5-5.0); Albumin Globulin Ratio 1.1 (1.0-2.8); Alkaline Phosphatase 66 U/L (38-126); Aspartate Aminotransferase 21 IU/L (14-36); BUN Creatinine Ratio 17.3 (6-22); Bilirubin Total 0.2 mg/dL (0.2-1.3); Blood Urea Nitrogen 9 mg/dL (7-17); Calcium 9.2 mg/dL (8.4-10.2); Carbon Dioxide 24 mmol/L (22-32); Chloride 107 mmol/L (98-107); Estimated Glomerular Filt Rate > 60 mL/min (>60); Globulin 3.1 g/dL (1.7-4.1); Glucose 77 mg/dL (70-100); HEMOLYSIS < 15 (0-50); Iron 41 ug/dL (37-170); Potassium 3.7 mmol/L (3.4-5.1); Sodium 138 mmol/L (137-145); Total Protein 6.6 g/dL (6.3-8.2)
[2022-12-17 19:04] LABS: Percent Iron Saturation 10 % (15-50); Total Iron Binding Capacity 419 ug/dL (265-497); Transferrin 327 mg/dL (206-381)
[2022-12-17 19:14] LABS: Free T3, Triiodothyronine Free 3.68 pg/mL (2.77-5.27); Free T4, Direct Thyroxine 0.75 ng/dL (0.78-2.19)
[2022-12-17 19:28] LABS: Ferritin 6 ng/mL (6-137)
[2022-12-18 12:41] LABS: Thyroid Stimulating Hormone 1.76 uIU/mL (0.47-4.68)
[2022-12-19 10:34] LABS: Ceruloplasmin 50.4 mg/dL (19.0-39.0)
[2022-12-27 14:30] LABS: Percent Free Testosterone 0.61 % (0.50-2.80); Testosterone Free 0.05 ng/dL (0.10-0.85)
== END ==
PROVIDERS: Internal Medicine Hematology & Oncology; PCP Family Medicine; Referring Provider Family Medicine; Visit Provider Family Medicine
DX: E05.90 Thyrotoxicosis, unspecified without thyrotoxic crisis or storm (principal); R06.02 Shortness of breath; R16.0 Hepatomegaly, not elsewhere classified; R60.9 Edema, unspecified; R63.5 Abnormal weight gain; Z79.890 Hormone replacement therapy; R59.0 Localized enlarged lymph nodes; R78.79 Finding of abnormal level of heavy metals in blood; E61.1 Iron deficiency
CPT/HCPCS: 36415; 71046; 80053; 82390; 82525; 82728; 83036; 83540; 83550; 84402; 84403; 84439; 84443; 84481; 85025

== ENCOUNTER → 2022-12-30 12:54 | Outpatient (CLI) | payer OTHER, MEDICAID, SELFPAY ==
--- NOTE | 2022-12-30 13:17 | DI.ECHO.S_ITS ---
[facility] +---------+ : : [address] : : : : [id number] : : : : Phone: [phone]+ Echocardiogram Report + + :Name: BERTHA FARAH Study Date: 12/30/2022 Height: 69 in : :[facility] ReadingLocation: Weight: 195 lb : : Gender: Female BSA: 2.0 m2 : :: 1995 Age: 27 yrs BP: 136/98 mmHg: :Reason For Study: EDEMA, SOB : :Ordering Physician: TRISHA CALHOUNPerformed By: Velia Block : :Referring: TRISHA CALHOUN : + + Interpretation Summary The left ventricle is normal in size and wall thickness. Left ventricular systolic function is low normal. The ejection fraction is estimated to be 50-55%. Septal motion is consistent with conduction abnormality. Diastolic parameters suggest probable normal left ventricular diastolic function and normal filling pressures. The right ventricle is normal in size and function. There is mild mitral regurgitation. The right ventricular systolic pressure is estimated to be at least 26 mmHg based on an estimated right atrial pressure of 3 mm Hg. BP: 136/98 mmHg Procedure: A two-dimensional transthoracic echocardiogram with color flow and Doppler was performed. The study quality was technically adequate. There is no prior echocardiogram noted for this patient. The patient was in sinus rhythm with heart rates between 72-92 bpm during the exam. Left Ventricle: The left ventricle is normal in size and wall thickness. There is no thrombus. A false chord is noted (normal variant). The ejection fraction is estimated to be 50-55%. Left ventricular systolic function is low normal. Septal motion is consistent with conduction abnormality. Diastolic parameters suggest probable normal left ventricular diastolic function and normal filling pressures. Right Ventricle: The right ventricle is normal in size and function. Atria: The left atrial size is normal. Right atrial size is normal. There is no Doppler evidence for an interatrial shunt. Mitral Valve: The mitral valve is normal in structure and function. There is mild mitral regurgitation. Aortic Valve: The aortic valve is trileaflet. The aortic valve opens well. There is no aortic valve stenosis. No aortic regurgitation is present. Tricuspid Valve: The tricuspid valve is normal in structure and function. There is trace tricuspid regurgitation. The right ventricular systolic pressure is estimated to be at least 26 mmHg based on an estimated right atrial pressure of 3 mm Hg. Pulmonic Valve: The pulmonic valve leaflets are thin and pliable; valve motion is normal. There is no pulmonic valvular regurgitation. Great Vessels: The aortic root is normal size. The dimensions of the ascending aorta are normal. The IVC is of normal diameter and collapses greater than 50% with a sniff. This suggests a low right atrial pressure of 3 mm Hg. Pericardium/ Pleura There is no pericardial effusion. There is no pleural effusion. MMode/2D Measurements & Calculations LVIDd: 4.9 cm LVOT diam: 2.2 cm LVIDs: 3.6 cm Ao root diam: 2.8 cm FS: 26.6 % asc Aorta Diam: 3.2 cm EPSS: 0.55 cm Ao Arch Diam (Prox Trans): 2.7 cm IVSd: 0.69 cm LVPWd: 0.75 cm LV paulson. diameter/BSA (cm/m^2): 2.4 LV sys. diameter/BSA (cm/m^2): 1.8 LA A2 area: 19.2 cm2 RA long axis: 4.2 cm LA A4 area: 15.8 cm2 RA area: 13.8 cm2 LA length (vol): 5.1 cm RA vol: 38.8 ml LA vol: 50.4 ml RA : 19.0 ml/m2 LA vol index: 24.7 ml/m2 IVC diam: 1.5 cm RVD1 (basal): 3.1 cm RVD2 (mid): 2.7 cm TAPSE: 2.2 cm Doppler Measurements & Calculations Ao V2 max: 140.2 cm/sec LVOT Max Karlo: 100.4 cm/sec Ao V2 mean: 94.0 cm/sec LV V1 max P.0 mmHg Ao max P.9 mmHg LV V1 VTI: 19.7 cm Ao mean P.1 mmHg TAMARA(I,D): 2.7 cm2 Ao V2 VTI: 28.3 cm TAMARA(V,D): 2.8 cm2 sev ratio: 0.70 TAMARA indexed to BSA (cm^2/m^2): 1.3 MV E max karlo: 85.5 cm/sec TR max karlo: 240.4 cm/sec MV A max karlo: 41.3 cm/sec TR max P.1 mmHg MV E/A: 2.1 PA V2 max: 102.4 cm/sec Med Peak E' Karlo: 11.5 cm/sec PA V2 mean: 74.3 cm/sec E/E' med: 7.4 PA mean P.4 mmHg Lat Peak E' Karlo: 17.8 cm/sec PA pr(Accel): 25.9 mmHg E/E' lat: 4.8 E/e' average: 6.1 MV dec time: 0.23 sec SV(LVOT): 76.8 ml Reading Physician:04:41 PM
== END ==
PROVIDERS: PCP Family Medicine; Referring Provider Family Medicine; Visit Provider Family Medicine
DX: R60.9 Edema, unspecified (principal); R06.02 Shortness of breath; R63.5 Abnormal weight gain; R16.0 Hepatomegaly, not elsewhere classified; E05.90 Thyrotoxicosis, unspecified without thyrotoxic crisis or storm; Z79.890 Hormone replacement therapy
CPT/HCPCS: 93306

== ENCOUNTER → 2023-03-22 13:36 | Outpatient (CLI) | payer OTHER, MEDICAID, SELFPAY ==
[2023-03-22 14:23] LABS: Add Manual Diff / Slide Review NO; Basophils Absolute Auto 0 /uL (0-100); Basophils Percent Auto 0.4 % (0-2); Eosinophils Absolute Auto 100 /uL (0-450); Eosinophils Percent Auto 1.1 % (2-4); Hematocrit 36.5 % (36-46); Hemoglobin 12.5 g/dL (12.0-16.0); Lymphocytes Absolute Auto 2400 /uL (1100-4500); Lymphocytes Percent Auto 31.2 % (25-40); Mean Corpuscular HGB Conc 34.1 % (30-36); Mean Corpuscular Hemoglobin 25.1 PG (26-34); Mean Corpuscular Volume 73.4 fL (80-100); Monocytes Absolute Auto 400 /uL (0-900); Neutrophils Absolute Auto 4900 /uL (1500-7000); Neutrophils Percent Auto 62.3 % (50-75); Platelet Count 304 X10^3/uL (150-400); Red Blood Cell Count 4.97 X10^6/uL (4.0-5.2); Red Cell Distribution Width 14.9 % (11.6-14.8); White Blood Cell Count 7.8 X10^3/uL (4.5-11.0)
[2023-03-22 14:36] LABS: Erythrocyte Sedimentation Rate 17 MM/HR (0-20)
[2023-03-22 14:39] LABS: Alanine Aminotransferase 14 IU/L (<35); Albumin 3.9 g/dL (3.5-5.0); Albumin Globulin Ratio 1.1 (1.0-2.8); Alkaline Phosphatase 67 U/L (38-126); BUN Creatinine Ratio 15.1 (6-22); Bilirubin Total 0.4 mg/dL (0.2-1.3); Blood Urea Nitrogen 8 mg/dL (7-17); C-Reactive Protein Quant 1.7 mg/dL (<1.0); Calcium 9.6 mg/dL (8.4-10.2); Carbon Dioxide 27 mmol/L (22-32); Chloride 103 mmol/L (98-107); Estimated Glomerular Filt Rate > 60 mL/min (>60); Globulin 3.7 g/dL (1.7-4.1); Glucose 120 mg/dL (70-100); HEMOLYSIS < 15 (0-50); Potassium 3.6 mmol/L (3.4-5.1); Sodium 138 mmol/L (137-145); Total Protein 7.6 g/dL (6.3-8.2)
[2023-03-22 14:40] LABS: Rheumatoid Factor < 8.6 IU/mL (<12.0)
[2023-03-22 14:54] LABS: Free T3, Triiodothyronine Free 3.75 pg/mL (2.77-5.27); Free T4, Direct Thyroxine 0.93 ng/dL (0.78-2.19)
[2023-03-22 15:08] LABS: Thyroid Stimulating Hormone 0.904 uIU/mL (0.47-4.68)
[2023-03-24 13:45] LABS: ANA Screen, IFA Negative (.); CCP Antibodies IgG/IgA 8 units (0-19)
[2023-03-25 15:54] LABS: Aspartate Aminotransferase 29 IU/L (14-36)
== END ==
LOC: LAB 13:37
PROVIDERS: PCP Family Medicine; Referring Provider Family Medicine; Visit Provider Family Medicine
DX: R10.13 Epigastric pain (principal); E03.9 Hypothyroidism, unspecified; M79.10 Myalgia, unspecified site; M13.0 Polyarthritis, unspecified; R63.5 Abnormal weight gain
CPT/HCPCS: 36415; 80053; 82533; 84439; 84443; 84481; 85025; 85651; 86038; 86140; 86200; 86430

== ENCOUNTER → 2023-07-22 09:40 | Outpatient (CLI) | payer OTHER, MEDICAID, SELFPAY ==
[2023-07-22 11:26] LABS: COVID-19 CEPHEID 4-PLEX PCR Negative (Negative); Influenza A - CEPHEID Flu A NEGATIVE (NEGATIVE); Influenza B - CEPHEID Flu B NEGATIVE (NEGATIVE); Respiratory Syncytial Virus Negative (Negative)
== END ==
PROVIDERS: PCP Family Medicine; Visit Provider Physician Assistant
DX: R50.9 Fever, unspecified (principal); J02.9 Acute pharyngitis, unspecified
CPT/HCPCS: 87635; 87400 ×2; 87420; 0241U; 87070; 87147

== ENCOUNTER 2024-04-27 09:27 | Emergency (ER) | payer OTHER, SELFPAY ==
[2024-04-27] VITALS (14 sets, daily range): BP systolic 128–146; BP diastolic 67–91; PULSE 63–92; RESP 10–30; TEMP 36.4–36.9; O2SAT 96–100; BMI 29.5
--- NOTE | 2024-04-27 09:41 | EKG_ITS ---
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
--- NOTE | 2024-04-27 09:46 | DI.RAD.S_ITS ---
PROCEDURE: XR CHEST 1V INDICATIONS: chest pain TECHNIQUE: One view of the chest was acquired. COMPARISON: [facility], CR, XR CHEST 2V, 12/17/2022, 17:43. FINDINGS: Surgical changes and devices: None. Lungs and pleura: Lungs are clear. No pleural effusions or pneumothorax. Mediastinum: Mediastinal contours appear normal. Heart size is normal. Bones and chest wall: No suspicious bony lesions. Overlying soft tissues appear unremarkable. IMPRESSION: No acute cardiopulmonary abnormality is seen. Dictated by: Paramjit Mojica M.D. on 04/27/2024 at 10:14 Approved by: Paramjit Mojica M.D. on 04/27/2024 at 10:16
[2024-04-27 10:46] LABS: Add Manual Diff / Slide Review NO; Basophils Absolute Auto 0 /uL (0-100); Basophils Percent Auto 0.4 % (0-2); Eosinophils Absolute Auto 500 /uL (0-450); Eosinophils Percent Auto 6.8 % (2-4); Hematocrit 39.8 % (36-46); Hemoglobin 13.8 g/dL (12.0-16.0); Lymphocytes Absolute Auto 2800 /uL (1100-4500); Lymphocytes Percent Auto 38.3 % (25-40); Mean Corpuscular HGB Conc 34.6 % (30-36); Mean Corpuscular Hemoglobin 27.6 PG (26-34); Mean Corpuscular Volume 79.7 fL (80-100); Monocytes Absolute Auto 400 /uL (0-900); Monocytes Percent Auto 5.6 % (3-14); Neutrophils Absolute Auto 3600 /uL (1500-7000); Neutrophils Percent Auto 48.9 % (50-75); Platelet Count 275 X10^3/uL (150-400); Red Blood Cell Count 4.99 X10^6/uL (4.0-5.2); Red Cell Distribution Width 13.6 % (11.6-14.8); White Blood Cell Count 7.3 X10^3/uL (4.5-11.0)
[2024-04-27 10:54] LABS: INR 1.1 (0.9-1.3); Prothrombin Time 11.9 SECONDS (9.4-12.5)
[2024-04-27 10:56] LABS: PTT Partial Thromboplastin Tim 31 SECONDS (25.1-36.5)
[2024-04-27 10:58] LABS: Alanine Aminotransferase 24 IU/L (<35); Albumin 3.9 g/dL (3.5-5.0); Albumin Globulin Ratio 1.2 (1.0-2.8); Alkaline Phosphatase 81 U/L (38-126); Aspartate Aminotransferase 27 IU/L (14-36); BUN Creatinine Ratio 11.7 (6-22); Bilirubin Total 0.4 mg/dL (0.2-1.3); Blood Urea Nitrogen 7 mg/dL (7-17); Calcium 9.3 mg/dL (8.4-10.2); Carbon Dioxide 22 mmol/L (22-32); Chloride 105 mmol/L (98-107); Creatine Kinase 39 U/L (30-135); Estimated Glomerular Filt Rate > 60 mL/min (>60); Globulin 3.3 g/dL (1.7-4.1); Glucose 149 mg/dL (70-100); HEMOLYSIS < 15 (0-50); Lipase 48 U/L (23-300); Magnesium 1.6 mg/dL (1.6-2.3); Potassium 3.8 mmol/L (3.4-5.1); Sodium 136 mmol/L (137-145); Total Protein 7.2 g/dL (6.3-8.2)
[2024-04-27 11:11] LABS: NT-proBNP (BNP-Adult 18+) 36 pg/mL (<125); Troponin I < 0.012 ng/mL (0.01-0.034)
--- NOTE | 2024-04-27 12:11 | ED.CHESTPAIN ---
HPI - Chest Pain General Chief Complaint: Chest Pain Stated Complaint: chest pain,history of svt Time Seen by Provider: 04/27/24 11:32 Source: patient, RN notes reviewed and old records reviewed Mode of arrival: Ambulatory Limitations: no limitations History of Present Illness HPI narrative: 29-year-old female history of SVT on propranolol who presents with complaint of chest pain which she described as more right-sided for the past 1-2 days. Radiates towards her back. No radiation towards the left. Has not changed location. States movement does not really seemed to make it worse. Nothing really seems to make it better. Has tried [id number] medications from reflux, anxiety, pain without any improvement. No fevers, no cold cough or congestion symptoms. Does feel little short of breath. Describes pleuritic pain. Has had some nausea but no vomiting. No syncope or lightheadedness. No rash or skin changes. No breast tenderness but notes if she put some compression to her chest it seems to help a little bit. No issues with bowel movements or urination. No swelling of extremities. Patient states propranolol daily, states she has had a prior cholecystectomy and lymph node removed. Has not had any prior cardiac interventions has a established with Dr. Navarro you was found to have SVT and a Holter monitor had a negative stress test in the last year. She is on Eneida which she believes is a progesterone only control. Denies any long distance travel. No tobacco, alcohol or recreational drugs. Her mother has had bilateral DVTs and PEs in the past. Related Data Home Medications Medication Instructions Recorded Confirmed buprenorphine 8 mg-naloxone 2 mg 1 film sublingual DAILY 06/17/21 04/25/24 sublingual film (Suboxone) Previous Rx's Medication Instructions Recorded pantoprazole 40 mg tablet,delayed 40 mg PO DAILY #90 tabs 02/25/16 release albuterol sulfate 90 mcg/actuation 2 puff inhalation Q4-6H PRN 08/07/21 aerosol inhaler shortness of breath or wheezing #8.5 grams valacyclovir 1 gram tablet See Rx Instructions .Route 01/31/23 .COMPLEX #90 tabs celecoxib 200 mg capsule (Celebrex) 200 mg PO DAILY #90 caps 04/26/23 escitalopram oxalate 10 mg tablet 15 mg (1.5 x 10 mg) PO DAILY #135 09/24/24 (Lexapro) tabs ondansetron 4 mg disintegrating 4 mg PO Q6-8H PRN nausea and 12/19/23 tablet vomiting 12 months #30 tabs tamsulosin 0.4 mg capsule 0.4 mg PO DAILY #90 caps 01/10/24 methylphenidate HCl 20 mg tablet 30 mg (1.5 x 20 mg) PO DAILY #135 02/22/24 tabs cetirizine 10 mg tablet 10 mg PO DAILY #90 tabs 03/07/24 drospirenone 3 mg-ethinyl 1 tab PO DAILY #84 tabs 03/07/24 estradiol 0.03 mg tablet levothyroxine 50 mcg tablet 50 mcg PO DAILY #30 tabs 03/07/24 clonazepam 0.5 mg tablet 0.5 mg PO BID PRN anxiety #60 tabs 03/27/24 propranolol 20 mg tablet 20 mg PO QPM #90 tabs 03/27/24 methylphenidate HCl 20 mg tablet 30 mg (1.5 x 20 mg) PO TID #135 04/13/24 tabs dexamethasone 1 mg tablet 1 mg PO ONCE #1 tab 04/25/24 tramadol 50 mg tablet 50 mg PO Q6H PRN pain #10 tabs 04/27/24 Allergies Allergy/AdvReac Type Severity Reaction Status Date / Time amoxicillin [From AUGMENTIN] Allergy Intermediate Hives Verified 04/25/24 15:33 clavulanic acid Allergy Intermediate Hives Verified 04/25/24 15:33 [From AUGMENTIN] Penicillins [PENICILLINS] Allergy Unknown Hives Verified 04/25/24 15:33 vicryl AdvReac Intermediate Uncoded 04/25/24 15:33 dissolvable sutures AdvReac Unknown sutures Uncoded 04/25/24 15:33 come out intact prior to wound healing Review of Systems Review of Systems ROS Unobtainable: All systems reviewed & are unremarkable except as noted in HPI and below Patient History Medical History Striae purple Abnormal blood level of copper Low ferritin Hypothyroidism Fluid collection (edema) in the arms, legs, hands and feet Lumbar radiculopathy, chronic Morgellons disease Scoliosis Generalized anxiety disorder with panic attacks Bilateral hand pain Acne Reaction of skin due to suture material Unexplained night sweats History of kidney stones Hematuria without proteinuria Acute right flank pain Lymphadenopathy History of UTI History of nephrolithiasis Nephrolithiasis GERD (gastroesophageal reflux disease) Opioid use disorder Coccydynia Degeneration of intervertebral disc at L5-S1 level Facet arthropathy, lumbar Facet arthropathy, lumbosacral Allergic to dogs Migraine with aura H pylori ulcer Asthma Drug use disorder (08/25/16) Surgical History H/O nasal septoplasty Family History Brother Scoliosis Mother Bulging discs Kidney stones UTI (urinary tract infection) Mother No problems noted. Social History marital status: unmarried,single Smoking Status: Never smoker alcohol intake: never Smoking Status: Never smoker alcohol intake frequency: holidays/special occasions only Exam Narrative Exam Narrative: GENERAL: Alert and oriented x three, female in mild distress HEENT: Head normocephalic, atraumatic, EOMI, pupils reactive, face symmetric, moist mucous membranes NECK: Supple, full range of motion CARDIOVASCULAR: Regular rate and rhythm without murmurs, rubs or gallops. Reproducible chest pain at the right sternal border. No rash or skin changes. No JVD. No edema, erythema of bilateral lower extremities. RESPIRATORY: Breath sounds equal bilaterally, no wheezes rales or rhonchi. No tachypnea or accessory muscle use. Patient's speaks in full sentences. ABDOMEN: Soft, nontender. Normoactive bowel sounds all 4 quadrants. No guarding or rebound, rigidity, no mass : No CVA tenderness EXTREMITIES: Normal range of motion, no clubbing or edema. Neurovascularly intact NEUROLOGICAL: Cranial nerves II through XII grossly intact. Moving all extremities SKIN: Warm, dry, no petechiae, no rashes or lesions, no blisters or vesicles. Initial Vital Signs Initial Vital Signs: Vital Signs Temperature 97.6 F 04/27/24 09:37 Pulse Rate 92 H 04/27/24 09:37 Respiratory Rate 16 04/27/24 09:37 Blood Pressure 146/91 H 04/27/24 09:37 Pulse Oximetry 98 04/27/24 09:37 Oxygen Delivery Method Room Air 04/27/24 09:37 Course Orders Ordered: ED Orders 04/27/24 09:39 EKG-12 Lead Stat 04/27/24 09:46 XR chest 1V Stat 04/27/24 10:28 Complete Blood Count AUTO DIFF Stat Comprehensive Metabolic Panel Stat D Dimer Stat Lipase Stat Magnesium Stat NT-proBNP (BNP-Adult 18+) Stat PTT Partial Thromboplastin Dylon Stat Test Serum,Qual Stat Prothrombin Time INR Stat Troponin & CK Cardiac Panel Stat 04/27/24 12:35 Trop I [Troponin I] Stat 04/27/24 13:04 CT angio chest PE protocol Stat Discontinued Medications Aspirin (Aspirin 81 Mg Chew Tab) 324 mg PO NOW ONE Stop: 04/27/24 09:47 Ketorolac Tromethamine (Ketorolac 30 Mg/Ml Vial) 15 mg IV NOW ONE Stop: 04/27/24 13:05 Last Admin: 04/27/24 13:10 Dose: 15 mg Documented By: Morphine Sulfate (Morphine 4 Mg/Ml Inj) 4 mg IV NOW ONE Stop: 04/27/24 13:27 Last Admin: 04/27/24 13:32 Dose: 4 mg Documented By: Tramadol HCl (Tramadol 50 Mg Tablet) 50 mg PO NOW ONE Stop: 04/27/24 16:20 Last Admin: 04/27/24 16:22 Dose: 50 mg Documented By: Vital Signs Vital signs: Vital Signs - 8 hr 04/27/24 11:32 04/27/24 11:33 04/27/24 11:33 Temperature Pulse Rate 72 71 Respiratory Rate 26 H 25 H Blood Pressure 142/82 H Pulse Oximetry 96 99 Oxygen Delivery Method 04/27/24 12:00 04/27/24 12:00 04/27/24 12:30 Temperature Pulse Rate 76 Respiratory Rate 15 Blood Pressure 128/67 137/73 Pulse Oximetry 98 Oxygen Delivery Method 04/27/24 12:30 04/27/24 13:00 04/27/24 13:00 Temperature Pulse Rate 80 74 Respiratory Rate 12 16 Blood Pressure 146/78 H Pulse Oximetry 100 99 Oxygen Delivery Method 04/27/24 13:30 04/27/24 13:30 04/27/24 14:00 Temperature Pulse Rate 74 63 Respiratory Rate 19 22 Blood Pressure 131/88 Pulse Oximetry 99 97 Oxygen Delivery Method Room Air 04/27/24 14:30 04/27/24 14:54 04/27/24 14:54 Temperature Pulse Rate 70 72 Respiratory Rate 18 13 Blood Pressure 146/78 H Pulse Oximetry 97 98 Oxygen Delivery Method 04/27/24 15:00 04/27/24 15:00 04/27/24 15:30 Temperature Pulse Rate 66 65 Respiratory Rate 12 10 L Blood Pressure 141/73 H Pulse Oximetry 96 97 Oxygen Delivery Method Room Air 04/27/24 16:00 04/27/24 16:27 Temperature 98.4 F Pulse Rate 75 65 Respiratory Rate 30 H 18 Blood Pressure 145/78 H Pulse Oximetry 97 98 Oxygen Delivery Method Room Air MDM - Chest Pain Lab Data 04/27/24 10:28 04/27/24 10:28 Labs: Lab Results 04/27/24 04/27/24 Range/Units 10:28 12:35 WBC 7.3 (4.5-11.0) X10^3/uL RBC 4.99 (4.0-5.2) X10^6/uL Hgb 13.8 (12.0-16.0) g/dL Hct 39.8 (36-46) % MCV 79.7 L (80-100) fL MCH 27.6 (26-34) PG MCHC 34.6 (30-36) % RDW 13.6 (11.6-14.8) % Plt Count 275 (150-400) X10^3/uL Neut % (Auto) 48.9 L (50-75) % Lymph % (Auto) 38.3 (25-40) % Cam[place] % (Auto) 5.6 (3-14) % Eos % (Auto) 6.8 H (2-4) % Baso % (Auto) 0.4 (0-2) % Neut # (Auto) 3600 (6450-9004) /uL Lymph # (Auto) 2800 (3634-7310) /uL [place] # (Auto) 400 (0-900) /uL Eos # (Auto) 500 H (0-450) /uL Baso # (Auto) 0 (0-100) /uL PT 11.9 (9.4-12.5) SECONDS INR 1.1 (0.9-1.3) APTT 31 (25.1-36.5) SECONDS D-Dimer 667 H (<500) ng/ml Sodium 136 L (137-145) mmol/L Potassium 3.8 (3.4-5.1) mmol/L Chloride 105 (98-107) mmol/L Carbon Dioxide 22 (22-32) mmol/L BUN 7 (7-17) mg/dL Creatinine 0.60 (0.52-1.04) mg/dL Estimated GFR > 60 (>60) mL/min BUN/Creatinine Ratio 11.7 (6-22) Glucose 149 H (70-100) mg/dL Calcium 9.3 (8.4-10.2) mg/dL Magnesium 1.6 (1.6-2.3) mg/dL Total Bilirubin 0.4 (0.2-1.3) mg/dL AST 27 (14-36) IU/L ALT 24 (<35) IU/L Alkaline Phosphatase 81 (38-126) U/L Total Creatine Kinase 39 (30-135) U/L Troponin I < 0.012 < 0.012 (0.01-0.034) ng/mL NT-Pro-B Natriuret Pep 36 (<125) pg/mL Total Protein 7.2 (6.3-8.2) g/dL Albumin 3.9 (3.5-5.0) g/dL Globulin 3.3 (1.7-4.1) g/dL Albumin/Globulin Ratio 1.2 (1.0-2.8) Lipase 48 (23-300) U/L Serum , Qual Negative (Negative) Imaging Data Chest x-ray: Radiologist's Impression: [address] [address] XRay Report Signed Patient: Clara Mahmood MR#: [id number] : 1995 Acct:[id number] Age/Sex: 29 / F Date of Service: 04/27/24 Loc: ED Accession Number: [id number] Procedure: XR chest 1V Ordering Provider: Karuna Duncan D.O. PROCEDURE: XR CHEST 1V INDICATIONS: chest pain TECHNIQUE: One view of the chest was acquired. COMPARISON: [facility], , XR CHEST 2V, 12/17/2022, 17:43. FINDINGS: Surgical changes and devices: None. Lungs and pleura: Lungs are clear. No pleural effusions or pneumothorax. Mediastinum: Mediastinal contours appear normal. Heart size is normal. Bones and chest wall: No suspicious bony lesions. Overlying soft tissues appear unremarkable. IMPRESSION: No acute cardiopulmonary abnormality is seen. Dictated by: Paramjit Mojica M.D. on 04/27/2024 at 10:14 Approved by: Paramjit Mojica M.D. on 04/27/2024 at 10:16 CT scan - chest: Radiologist's Impression: Clara Mahmood??She/Her/Hers??29??F??1995 ? Allergy/Adv: amoxicillin, clavulanic acid, Penicillins, [vicryl], [dissolvable sutures] (More??) Close Chest CTA (Signed) Tru Katz - 04/27/24 Chest X-Ray (Signed) Paramjit Mojica - 04/27/24 Echocardiogram Ultrasound (Signed) Omaira Caro - 12/30/22 Chest X-Ray (Signed) Wilder Salmeron - 12/17/22 Abdomen/Pelvis CT (Signed) Wilder Salmeron - 03/05/22 Abdomen/Pelvis CT (Signed) Tati Foy - 01/19/22 Chest/Abdomen/Pelvis CT (Signed) Jovany Vazquez - 07/31/21 Outside DI 07/03/21 Telemetry Strips 05/19/[address] (Signed) Jake Eller - 04/21/21 Head/Neck Ultrasound (Addendum) Amina De La Rosa - 03/19/21 Abdomen Ultrasound (Signed) Mich Walton - 02/10/21 Thyroid Ultrasound (Signed) Jovany Vazquez - 01/13/21 KUB X-Ray (Signed) Amina De La Rosa - 09/09/20 Abdomen/Pelvis CT (Signed) Radha Hurley - 01/31/20 Renal Ultrasound (Signed) Landon Estevez - 01/23/20 Abdomen/Pelvis CT (Signed) Bonilla Ibrahim - 12/28/19 Facet Joint Injection X-Ray (Signed) Bonilla Ibrahim - 09/20/19 Lumbar Spine X-Ray (Signed) Tru Katz - 07/30/19 Lumbar Spine MRI (Signed) Tru Katz - 02/14/19 Launch?[address] [address] [address] Scan Report Signed Patient: Clara Mahmood MR#: [id number] : 1995 Acct:[id number] Age/Sex: 29 / F Date of Service: 04/27/24 Loc: ED Accession Number: [id number] Procedure: CT angio chest PE protocol Ordering Provider: Karuna Duncan D.O. PROCEDURE: CT ANGIO CHEST PE PROTOCOL INDICATIONS: Right-sided chest pain radiates to back, positive dimer TECHNIQUE: After the administration of intravenous contrast, 2 mm thick sections acquired from the pulmonary apices to the posterior costophrenic angles. 3-dimensional maximum intensity projection (MIP) coronal and sagittal reformats were then acquired through the thorax. For radiation dose reduction, the following was used: automated exposure control, adjustment of mA and/or kV according to patient size. COMPARISON: None. FINDINGS: Image quality: Diagnostic. Pulmonary arteries: Pulmonary arteries are normal in size, and demonstrate no intraluminal filling defects to suggest central pulmonary embolism. Lower Neck: No enlarged lymph nodes. Thyroid: No thyroid nodules which require sonographic follow up, per consensus guidelines. Axillae: No enlarged lymph nodes. Chest Wall: Unremarkable. Bones: Unremarkable. Lungs and Pleura: No pneumothorax or pleural effusions. No consolidation or suspicious nodules. Heart: Heart size is normal. No pericardial effusion. Thoracic Vessels: No aortic aneurysm. Mediastinum and Jaylin: No enlarged lymph nodes. Esophagus: No wall thickening. No hiatal hernia. Upper Abdomen: Visualized upper abdomen solid organs and bowel loops appear normal. IMPRESSION: No pulmonary embolus. No acute cardiopulmonary process. Dictated by: Tru Katz M.D. on 04/27/2024 at 15:05 Approved by: Tru Katz M.D. on 04/27/2024 at 15:05 ECG Data Attestation: I personally reviewed and interpreted this ECG as follows: Prior ECG tracings: available for review Interpretation: Sinus rhythm rate of 92 [place] 122 QRS is 70 QTC of 420 T-wave inverted, biphasic T-wave in lateral leads V3, V4 and V5. Patient has prior from 07/30/2022 which appears different but appears similar to 03/05/2022. EKG 2. Shows sinus rhythm, rate of 69 [place] 138 QRS is 76, QTC of 467, no acute ST changes appreciated. MDM Narrative Medical decision making narrative: 29-year-old female is on oral contraceptive, has family history of DVT/PE with the mother presents with right-sided chest pain is reproducible, vitals are overall reassuring initial labs do not show a clear source troponin was repeated and D-dimer is elevated at [address] angio of the chest was obtained based on patient's risk factors. White count of 7.3 hemoglobin of 13 platelets of 275, coags are negative sodium is 136 electrolytes are otherwise appropriate BUN 7 creatinine 0.6, glucose of 149 LFTs are negative troponins less than 0.012 BNP of 36. Lipase of 48. Repeat troponin is less than 0.012 D-dimer is elevated at 667 Chest x-ray shows no acute change EKG shows sinus rhythm, nonspecific change patient has inverted T-wave in lead 3 but not in 2 somewhat in AVF. Does have some ST depression in lateral leads. Repeat EKG showed nonspecific change. CT angio chest shows no pulmonary embolism. No acute change. Echo from 12/30/2022 shows normal left ventricle EF of 50 55% septal motion was consistent with conduction abnormality. Right ventricle normal size and function left atrial and right atrium normal no evidence of shunt. Trace tricuspid regurg. No pericardial effusion. Patient had Toradol with minimal improvement. Had narcotic pain medication patient had some improvement but requested additional dose. Patient given another dose of medication, recommended follow up as needed if not improving. Concern for vascular, embolic or ACS at this time is low. Patient is felt appropriate for discharge home. Discharge Plan Departure Patient Disposition: Home Clinical Impression: Chest pain Instructions: DI for Chest Pain Activity Restrictions/Additional Instructions: Follow up for recheck. You can take acetaminophen up to a 1000 mg every 6 hours as needed for pain, and/or ibuprofen every 6 hours as needed. Can take narcotic pain medication as prescribed. This medication can make you sleepy do not drive, perform hazardous activities or make any major decisions while taking it. This medication will make you constipated please take a stool softener once to twice daily until stools are soft and regular. Continue your Celebrex as prescribed you can take acetaminophen up to a 1000 mg every 6 hours as needed. Prescription sent to [facility] in [place] Please return for new or worsening symptoms, fevers, coughing up blood, new shortness of breath, persistent vomiting, lightheadedness or passing out, new swelling of your extremities or other new or concerning changes. Prescriptions: New tramadol 50 mg tablet 50 mg PO Q6H PRN (Reason: pain) Qty: 10 0RF No Action albuterol sulfate 90 mcg/actuation HFA aerosol inhaler 2 puff inhalation Q4-6H PRN (Reason: shortness of breath or wheezing) Qty: 8.5 11RF valacyclovir 1 gram tablet See Rx Instructions .ROUTE .COMPLEX Qty: 90 1RF Dose Instruction: TAKE 1 TABLET BY MOUTH EVERY DAY Rx Instructions: TAKE 1 TABLET BY MOUTH EVERY DAY celecoxib [Celebrex] 200 mg capsule 200 mg PO DAILY Qty: 90 3RF escitalopram oxalate [Lexapro] 10 mg tablet 15 mg PO DAILY Qty: 135 3RF tamsulosin 0.4 mg capsule 0.4 mg PO DAILY Qty: 90 0RF methylphenidate HCl 20 mg tablet 30 mg PO DAILY Qty: 135 0RF cetirizine 10 mg tablet 10 mg PO DAILY Qty: 90 0RF pantoprazole 40 mg tablet,delayed release (DR/EC) 40 mg PO DAILY Qty: 90 0RF drospirenone-ethinyl estradiol 3-0.03 mg tablet 1 tab PO DAILY Qty: 84 0RF levothyroxine 50 mcg tablet 50 mcg PO DAILY Qty: 30 0RF clonazepam 0.5 mg tablet 0.5 mg PO BID PRN (Reason: anxiety) Qty: 60 2RF propranolol 20 mg tablet 20 mg PO QPM Qty: 90 3RF methylphenidate HCl 20 mg tablet 30 mg PO TID Qty: 135 0RF ondansetron 4 mg tablet,disintegrating 4 mg PO Q6-8H PRN (Reason: nausea and vomiting) 360 Days Qty: 30 5RF dexamethasone 1 mg tablet 1 mg PO ONCE Qty: 1 0RF buprenorphine-naloxone [Suboxone] 8-2 mg film 1 film sublingual DAILY Patient Comments: DISSOLVE 1/4 FILM UNDER THE TONGUE 4 times daily Referrals: Lang Clemente DO [Primary Care Provider] - Stand Alone Forms: Patient Portal/API/Survey
--- NOTE | 2024-04-27 12:37 | EKG_ITS ---
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
[2024-04-27 12:45] LABS: D Dimer 667 ng/ml (<500)
--- NOTE | 2024-04-27 13:04 | DI.CT.S_ITS ---
PROCEDURE: CT ANGIO CHEST PE PROTOCOL INDICATIONS: Right-sided chest pain radiates to back, positive dimer TECHNIQUE: After the administration of intravenous contrast, 2 mm thick sections acquired from the pulmonary apices to the posterior costophrenic angles. 3-dimensional maximum intensity projection (MIP) coronal and sagittal reformats were then acquired through the thorax. For radiation dose reduction, the following was used: automated exposure control, adjustment of mA and/or kV according to patient size. COMPARISON: None. FINDINGS: Image quality: Diagnostic. Pulmonary arteries: Pulmonary arteries are normal in size, and demonstrate no intraluminal filling defects to suggest central pulmonary embolism. Lower Neck: No enlarged lymph nodes. Thyroid: No thyroid nodules which require sonographic follow up, per consensus guidelines. Axillae: No enlarged lymph nodes. Chest Wall: Unremarkable. Bones: Unremarkable. Lungs and Pleura: No pneumothorax or pleural effusions. No consolidation or suspicious nodules. Heart: Heart size is normal. No pericardial effusion. Thoracic Vessels: No aortic aneurysm. Mediastinum and Jaylin: No enlarged lymph nodes. Esophagus: No wall thickening. No hiatal hernia. Upper Abdomen: Visualized upper abdomen solid organs and bowel loops appear normal. IMPRESSION: No pulmonary embolus. No acute cardiopulmonary process. Dictated by: Tru Katz M.D. on 04/27/2024 at 15:05 Approved by: Tru Katz M.D. on 04/27/2024 at 15:05
[2024-04-27 13:07] LABS: Troponin I < 0.012 ng/mL (0.01-0.034)
[2024-04-27] MEDS: KETOROLAC 30 MG/ML VIAL 15 MG IV (13:10)
[2024-04-27] MEDS: MORPHINE 4 MG/ML INJ IV (13:32)
[2024-04-27 13:58] LABS: Pregnancy Test Serum,Qual Negative (Negative)
--- NOTE | 2024-04-27 16:11 | PC.NURSE ---
Pt says that MD was going to give pt something for pain before she leaves. MD consulted.
[2024-04-27] MEDS: TRAMADOL 50 MG TABLET PO (16:22)
== END 2024-04-27 16:28 | disposition home or self-care (01) ==
PROVIDERS: Emergency Provider Emergency Medicine; PCP Family Medicine
DX: R07.9 Chest pain, unspecified (principal); K21.9 Gastro-esophageal reflux disease without esophagitis; Z86.79 Personal history of other diseases of the circulatory system; Z82.49 Family history of ischemic heart disease and other diseases of the circulatory system
CPT/HCPCS: 36415; 71045; 71275; 80053; 82550; 83690; 83735; 83880; 84484; 84703; 85025; 85379; 85610; 85730; 93005; 96374; 96375; 99284; 99285; J1885; J2270; Q9967

== ENCOUNTER → 2025-01-24 15:30 | Outpatient (CLI) | payer OTHER, SELFPAY | PROVIDERS: PCP Family Medicine; Visit Provider Chiropractor | DX: R39.15 Urgency of urination (principal) | CPT/HCPCS: 87086 ==